=== PATIENT | female | born 1985 | race Caucasian/White ===

== ENCOUNTER 2017-09-22 14:10 | Emergency (ER) | payer OTHER ==
[~2017-09-22] VITALS: Ht 149.9 cm; Wt 69.6 kg
[~2017-09-22 14:10] MED LIST: BUPR8MIS SL; GABA-113 PO; SERT25TA PO
[2017-09-22 14:13] VITALS: TEMP 37.7; Ht 149.9 cm; Wt 69.6 kg
[2017-09-22] MEDS ORDERED: SODIUM CHLORIDE 0.9% 1000ML 2,000 ML IV STA (14:36)
[2017-09-22] MEDS ORDERED: SODIUM CHLORIDE 0.9% 1000ML 1,000 ML IV STA (14:36)
--- NOTE | 2017-09-22 14:48 | EMERGENCY ROOM VISIT NOTE ---
History Report prepared by Darin: Giovanni Remy Under the Supervision of: Dr. Brant Gillette M.D. First contact with patient: 14:26 Chief Complaint: OTHER COMPLAINT Stated Complaint: INVOLUNTARY MUSCLE SPASM History of Present Illness The patient is a 32 year old female who presents to the Emergency Room following a now-resolved involuntary spasm episode that occurred 90 minutes prior to arrival. The patient describes her spasm as her head being pulled back , and someone pulling on her upper extremities. This caused her upper extremities to move uncontrollably. Her mother at bedside estimates that her episode lasted roughly 30 minutes. She did lose continence of her bladder. The patient did have a similar episode 1 month ago, but this spasm was in her legs. She followed with a Neurologist at [facility] following this episode and did have an EEG performed. Everything from this visit resulted normal. The patient also notes feeling a "hot" sensation in her head during these episodes. She has had a headache today. She does have a history of anxiety and panic attacks. The patient continued to add that she has vomiting, fevers, chills, and cough every day. She gets notes that she gets a migraine every day. Source of History: patient Onset: 90 minutes [employer] Position: arm (bilateral) Quality: other (involuntary spasms) Timing: resolved Associated Symptoms: + headache ("hot" sensation) Review of Systems See HPI for pertinent positives and negatives. A total of ten systems were reviewed and were otherwise negative. Past Medical & Surgical Hx of Anxiety and Panic Attacks Family History Cancer Social History Smoking Status: Current Every Day Smoker Alcohol Use: occasionally Drug Use: none Marital Status: single Housing Status: lives with family Occupation Status: unemployed Current/Historical Medications Scheduled Buprenorphine Hcl-Naloxone Hcl (Suboxone 8-2 Mg), 8 MG SL BID Gabapentin (Neurontin), 600 MG PO BID Sertraline (Zoloft), 25 MG PO DAILY Allergies Coded Allergies: Codeine (Verified Allergy, Severe, hives, 10/08/13) as per patient Physical Exam Vital Signs Date Time Temp Pulse Resp B/P (MAP) Pulse Ox O2 Delivery O2 Flow Rate FiO2 09/22/17 16:00 84 23 103/66 99 Room Air 09/22/17 14:29 95 09/22/17 14:13 37.7 101 16 126/81 98 Room Air Physical Exam GENERAL: Awake, alert, fatigued-appearing, anxious appearing, in no distress HENT: Normocephalic, atraumatic. Dry mucous membranes. EYES: Normal conjunctiva. Sclera non-icteric. NECK: Supple. No nuchal rigidity. FROM. No JVD. RESPIRATORY: Clear to auscultation. CARDIAC: Regular rate, normal rhythm. Extremities warm and well perfused. Pulses equal. ABDOMEN: Soft, non-distended. No tenderness to palpation. No rebound or guarding. No masses. RECTAL: Deferred. MUSCULOSKELETAL: Chest examination reveals no tenderness. The back is symmetrical on inspection without obvious abnormality. There is no CVA tenderness to palpation. No joint edema. LOWER EXTREMITIES: Calves are equal size bilaterally and non-tender. No edema. No discoloration. NEURO: Normal sensorium. No sensory or motor deficits noted. normal cerebellar function with [id number], alternating palms, [id number] SKIN: No rash or jaundice noted. Medical Decision & Procedures ER Provider Diagnostic Interpretation: Radiology results as stated below per my review and radiologist interpretation: CHEST ONE VIEW PORTABLE HISTORY: 32 years-old Female ABDOMINAL PAIN/GI acute generalized abdominal pain COMPARISON: Acute abdominal series radiographs 10/25/2014 TECHNIQUE: Portable AP view of the chest FINDINGS: Cardiac mediastinal and hilar silhouettes are within normal limits. There is no pneumothorax, pleural effusion, focal airspace consolidation or overt pulmonary edema. The bones of the chest appear grossly intact. Cholecystectomy clips noted. IMPRESSION: No acute process. The above report was generated using voice recognition software. It may contain grammatical, syntax or spelling errors. Electronically signed by: Hari Landaverde M.D. 09/22/2017 3:01 PM Dictated Date/Time: 09/22/2017 3:00 PM Laboratory Results 09/22/17 14:25 Red Blood Count 4.60, Mean Corpuscular Volume 88.3, Mean Corpuscular Hemoglobin 30.2, Mean Corpuscular Hemoglobin Concent 34.2, Mean Platelet Volume 10.7, Neutrophils (%) (Auto) 77.6, Lymphocytes (%) (Auto) 16.5, Monocytes (%) (Auto) 5.6, Eosinophils (%) (Auto) 0.1, Basophils (%) (Auto) 0.1, Neutrophils # (Auto) 6.66, Lymphocytes # (Auto) 1.42, Monocytes # (Auto) 0.48, Eosinophils # (Auto) 0.01, Basophils # (Auto) 0.01 09/22/17 14:25 Test 09/22/17 14:15 09/22/17 14:25 Urine Color YELLOW Urine Appearance CLEAR (CLEAR) Urine pH 6.0 (4.5-7.5) Urine Specific [place] 1.020 (1.000-1.030) Urine Protein NEG (NEG) Urine Glucose (UA) NEG (NEG) Urine Ketones NEG (NEG) Urine Occult Blood NEG (NEG) Urine Nitrite NEG (NEG) Urine Bilirubin NEG (NEG) Urine Urobilinogen NEG (NEG) Urine Leukocyte Esterase NEG (NEG) White Blood Count 8.59 K/uL (4.8-10.8) Red Blood Count 4.60 M/uL (4.2-5.4) Hemoglobin 13.9 g/dL (12.0-16.0) Hematocrit 40.6 % (37-47) Mean Corpuscular Volume 88.3 fL (80-100) Mean Corpuscular Hemoglobin 30.2 pg (25-34) Mean Corpuscular Hemoglobin Concent 34.2 g/dl (32-36) Platelet Count 230 K/uL (130-400) Mean Platelet Volume 10.7 fL (7.4-10.4) Neutrophils (%) (Auto) 77.6 % Lymphocytes (%) (Auto) 16.5 % Monocytes (%) (Auto) 5.6 % Eosinophils (%) (Auto) 0.1 % Basophils (%) (Auto) 0.1 % Neutrophils # (Auto) 6.66 K/uL (1.4-6.5) Lymphocytes # (Auto) 1.42 K/uL (1.2-3.4) Monocytes # (Auto) 0.48 K/uL (0.11-0.59) Eosinophils # (Auto) 0.01 K/uL (0-0.5) Basophils # (Auto) 0.01 K/uL (0-0.2) RDW Standard Deviation 40.5 fL (36.4-46.3) RDW Coefficient of Variation 12.7 % (11.5-14.5) Immature Granulocyte % (Auto) 0.1 % Immature Granulocyte # (Auto) 0.01 K/uL (0.00-0.02) Anion Gap 9.0 mmol/L (3-11) Est Creatinine Clear Calc Drug Dose 91.9 ml/min Estimated GFR () 122.0 Estimated GFR (Non- 105.3 BUN/Creatinine Ratio 9.9 (10-20) Calcium Level 9.4 mg/dl (8.5-10.1) Total Bilirubin 0.3 mg/dl (0.2-1) Direct Bilirubin < 0.1 mg/dl (0-0.2) Aspartate Amino Transf (AST/SGOT) 10 U/L (15-37) Alanine Aminotransferase (ALT/SGPT) 21 U/L (12-78) Alkaline Phosphatase 68 U/L (45-117) Total Creatine Kinase 59 U/L (26-192) Total Protein 8.4 gm/dl (6.4-8.2) Albumin 4.1 gm/dl (3.4-5.0) Lipase 71 U/L (73-393) Laboratory results reviewed by me Medications Administered Medications (Trade) Dose Ordered Sig/Usha Route Start Time Stop Time Status Last Admin Dose Admin Sodium Chloride 1,000 ml @ 999 mls/hr Q1H1M STAT IV 09/22/17 14:36 09/22/17 15:36 DC 09/22/17 15:02 999 MLS/HR Sodium Chloride 2,000 ml @ 999 mls/hr Q2H1M STAT IV 09/22/17 14:36 09/22/17 16:36 DC 09/22/17 15:02 999 MLS/HR ECG Per My Interpretation Indication: weakness Rate (beats per minute): 78 Rhythm: normal sinus Findings: other (No ROEL/STD, Normal [place]. ) ED Course 1429: The patient was evaluated in room C3. A complete history and physical exam was performed. 1436: Ordered Sodium Chloride 2000 mL @ 999 mL/hr IV, Sodium Chloride 1000 mL @ 999 mL/hr IV. 1542: Ordered Benadryl 25 mg IV, Reglan 10 mg IV. 1544: I reevaluated the patient. Discussed results and discharge instructions: she verbalized understanding and agreement. The patient is ready for discharge. Medical Decision I reviewed the patient's past medical history, medications, and the nursing notes as described above. Differential diagnosis: Etiologies such as metabolic, infection, hypo/hyperglycemia, electrolyte abnormalities, cardiac sources, intracerebral event, toxicologic, neurologic, as well as others were entertained. The patient is a 32-year-old woman with a past medical history of anxiety and prior substance abuse who presents emergency department with episode of arm spasms that occurred prior to arrival similar to prior episode 1 month ago per hpi. Of note, during that episode the patient had followed up with neurology and had a negative MRI with and without contrast as well as spot EEG that was unremarkable. It was the impression of neurology that symptoms were likely related to dehydration and recent medication changes. On arrival the patient is fatigued appearing but in no acute distress, afebrile stable vital signs. She is neurologically intact. Documentation from patient's prior nerve neuro evaluation were obtained and demonstrates her negative MRI. The patient's mother at the bedside is concerned that she may have MS and so I explained that given her reassuring MRI this is unlikely. Labs unremarkable including WBC within normal limits. Chest x-ray negative. She feeling improved after IV fluid hydration with resolution of her headache. Findings and plan for follow- up reviewed with patient. Patient agreeable and d/c'd per discharge instructions. Medication Reconcilliation Current Medication List: was personally reviewed by me Blood Pressure Screening Patient's blood pressure: Normal blood pressure Impression Primary Impression: Muscle spasm Additional Impression: Dehydration Scribe Attestation The scribe's documentation has been prepared under my direction and personally reviewed by me in its entirety. I confirm that the note above accurately reflects all work, treatment, procedures, and medical decision making performed by me. Departure Information Dispostion Home / Self-Care Referrals Sloane Alcazar M.D. (PCP) Leslie Bernard M.D. Patient Instructions Anxiety Body Response, ED Spasm Muscle, My [facility] Additional Instructions Please follow up with your primary care physician and neurologist, Dr. Bernard , this week for re-evaluation. The cause of your symptoms is unclear at this time however may be related to mild dehydration and your underlying anxiety. Otherwise, your exam, EKG, chest xray, and lab results did not show signs of an emergent condition at this time. Drink plenty of fluids to ensure hydration. Return to the emergency department for worsening symptoms as described in the accompanying instructions. Problem Qualifiers
[2017-09-22 14:54] LABS: BASO % 0.1 %; BASO ABS # 0.01 K/uL (0-0.2); EOS % 0.1 %; EOS ABS # 0.01 K/uL (0-0.5); HEMATOCRIT 40.6 % (37-47); HEMOGLOBIN 13.9 g/dL (12.0-16.0); IG# 0.01 K/uL (0.00-0.02); LYMPH % 16.5 %; LYMPH ABS # 1.42 K/uL (1.2-3.4); MEAN CELL VOLUME 88.3 fL (80-100); MEAN CORPUSCULAR HEMOGLOBIN 30.2 pg (25-34); MEAN CORPUSCULAR HGB CONC 34.2 g/dl (32-36); MEAN PLATELET VOLUME 10.7 fL (7.4-10.4); MONO % 5.6 %; MONO ABS # 0.48 K/uL (0.11-0.59); NEUT % 77.6 %; NEUT ABS # 6.66 K/uL (1.4-6.5); PLATELET COUNT 230 K/uL (130-400); RED CELL DISTRIBUTION WIDTH CV 12.7 % (11.5-14.5); RED CELL DISTRIBUTION WIDTH SD 40.5 fL (36.4-46.3); WHITE BLOOD COUNT 8.59 K/uL (4.8-10.8)
--- NOTE | 2017-09-22 15:02 | DIAGNOSTIC IMAGING REPORT ---
CHEST ONE VIEW PORTABLE HISTORY: 32 years-old Female ABDOMINAL PAIN/GI acute generalized abdominal pain COMPARISON: Acute abdominal series radiographs 10/25/2014 TECHNIQUE: Portable AP view of the chest FINDINGS: Cardiac mediastinal and hilar silhouettes are within normal limits. There is no pneumothorax, pleural effusion, focal airspace consolidation or overt pulmonary edema. The bones of the chest appear grossly intact. Cholecystectomy clips noted. IMPRESSION: No acute process. The above report was generated using voice recognition software. It may contain grammatical, syntax or spelling errors. Electronically signed by: Hari Landaverde M.D. 09/22/2017 3:01 PM Dictated Date/Time: 09/22/2017 3:00 PM
[2017-09-22 15:15] LABS: ALBUMIN 4.1 gm/dl (3.4-5.0); ALT/SGPT 21 U/L (12-78); AST/SGOT 10 U/L (15-37); BLOOD UREA NITROGEN 8 mg/dl (7-18); CALCIUM 9.4 mg/dl (8.5-10.1); CARBON DIOXIDE 25 mmol/L (21-32); CREATININE 0.76 mg/dl (0.60-1.20); GLUCOSE 84 mg/dl (70-99); LIPASE 71 U/L (73-393); POTASSIUM 3.6 mmol/L (3.5-5.1); SODIUM 137 mmol/L (136-145)
[2017-09-22 15:18] LABS: ALKALINE PHOSPHATASE 68 U/L (45-117); TOTAL PROTEIN 8.4 gm/dl (6.4-8.2)
[2017-09-22] MEDS ORDERED: DiphenhydrAMINE HCL 50 MG/ML VIAL IV STA (15:42)
[2017-09-22] MEDS ORDERED: METOCLOPRAMIDE HCL INJ 5 MG/ML 2 ML VIAL IV STA (15:42)
[2017-09-22 16:00] VITALS: BP 103/66; PULSE 84; O2SAT 99
== END 2017-09-22 16:23 | disposition home or self-care (01) ==
LOC: C.EDB 14:11 → C.EDC 16:23
DX: M62.838 Other muscle spasm (principal); E86.0 Dehydration; R51 Headache; F41.0 Panic disorder [episodic paroxysmal anxiety]; F19.21 Other psychoactive substance dependence, in remission; F17.200 Nicotine dependence, unspecified, uncomplicated; Z80.9 Family history of malignant neoplasm, unspecified; Z88.6 Allergy status to analgesic agent

== ENCOUNTER 2022-08-04 00:22 | Inpatient (IN) ==
[2022-08-04] MEDS ORDERED: ACETAMINOPHEN 1,000 MG/100 ML VIAL IV STA (01:11)
[2022-08-04] MEDS ORDERED: VANCOMYCIN HCL 2,000 MG in SODIUM CHLORIDE 0.9% 500 ML IV ONE (01:13)
[2022-08-04] MEDS ORDERED: PIPERACILLIN/TAZOBACTAM 4.5 GM/120 ML BAG IV ONE (01:13)
[2022-08-04] MEDS ORDERED: VANCOMYCIN CONSULT ACTIVE PRN (01:13)
[2022-08-04] MEDS ORDERED: SODIUM CHLORIDE 0.9% 1000ML 1,000 ML IV SCH (01:15)
[2022-08-04 01:53] LABS: Basophils # (auto) 0.01 K/uL (0-0.2); Basophils % (auto) 0.1 %; Hematocrit (blood only) 34.6 % (37.0-47.0); Immature Granulocytes # (auto) 0.06 K/uL (0.01-0.20); Immature Granulocytes % (auto) 0.4 %; Lymphocytes # (auto) 0.99 K/uL (1.2-3.4); Lymphocytes % (auto) 6.7 %; Mean Corpuscular Hemoglobin 30.5 pg (25.0-34.0); Mean Corpuscular Hgb Conc 34.7 g/dL (32.0-36.0); Mean Platelet Volume 10.6 fL (9.4-12.4); Monocytes # (auto) 1.16 K/uL (0.11-0.59); Monocytes % (auto) 7.9 %; Neutrophils # (auto) 12.52 K/uL (1.40-6.50); Neutrophils % (auto) 84.9 %; Platelet Count 169 K/uL (130-400); RDW Coefficient of Variation 12.2 % (11.5-14.5); RDW Standard Deviation 39.3 fL (36.4-46.3); Red Blood Count 3.93 M/uL (4.20-5.40); White Blood Count 14.74 K/ul (4.8-10.8)
--- NOTE | 2022-08-04 01:55 | Emergency Department Note ---
History of Present Illness General Chief complaint: Back Injury/Pain Stated complaint: CHEST PAIN, BACK PAIN Time Seen by Provider: 08/04/22 01:02 History of Present Illness Maximum Pain Intensity: 10 This 37-year-old female that came to the ER earlier and left AMA presents with the mother for severe chest and abdominal pain and back pain. 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 Patient complains of fever, chills, chest pain, abdominal pain and back pain for the past few days. Patient is writhing in pa in. History is also obtained from the mother. Patient was trying to give herself some enemas also today. Home Medications Medication Instructions Recorded Confirmed Type buprenorphine 8 mg-naloxone 2 mg 1 tab sublingual BID 08/04/22 08/04/22 History sublingual tablet Allergies Allergy/AdvReac Type Severity Reaction Status Date / Time No Known Allergies Allergy Unverified 08/04/22 01:17 Past Med/Surg History Social History Smoking Status: Current every day smoker Tobacco Type: Cigarettes Hx Alcohol Use: No Preferred Language: French Metallurgical Specialist Required: No Beliefs That Will Affect Care: None Current Living Situation: Alone Feels Safe at Home: Yes Safety Concerns: Feels Safe At This Time Assistive Devices: None Review of Systems A total of 10 systems reviewed and were otherwise negative Physical Exam Vital Signs Vital Signs - 24 hr 08/04/22 02:15 08/04/22 02:28 08/04/22 03:03 Temperature 37.6 C H Temperature Source Oral Pulse Rate 98 H 91 H Pulse Rate from SpO2 Sensor 97 H Respiratory Rate 28 H 24 Blood Pressure 118/71 106/64 Blood Pressure Mean 86 78 Pulse Oximetry 98 100 Oxygen Delivery Method Room Air 08/04/22 04:01 Temperature Temperature Source Pulse Rate 97 H Pulse Rate from SpO2 Sensor Respiratory Rate 24 Blood Pressure 119/67 Blood Pressure Mean 84 Pulse Oximetry 100 Oxygen Delivery Method VITALS: Vitals are noted on the nurse's note and reviewed by myself. Vital signs tachycardic. GENERAL: White female who appears in pain, in no acute distress, nondiaphoretic, well-developed well-nourished. SKIN: Multiple track bacon present in different stages of the arms, the rest of the skin was without rashes, erythema, edema, or bruising. There is no tenting of the skin. Capillary reflex less than 2 seconds. HEAD: Normocephalic atraumatic. EARS: External auditory canals clear, EYES: Pupils equal round and reactive to light and accommodation. Conjunctivae without injection, sclerae without icterus. Extraocular movements intact. NOSE: Patent, turbinates without inflammation or discharge. MOUTH: Mucous membranes moist. Pharynx without erythema or exudate. Uvula midline. Airway patent. Tongue does not deviate. NECK: Supple without nuchal rigidity. No lymphadenopathy. No thyromegaly. Cervical spine is nontender. No JVD. HEART: Mildly tachycardic rate and rhythm LUNGS: Clear to auscultation bilaterally without wheezes, rales or rhonchi. No retractions or accessory muscle use. ABDOMEN: Positive bowel sounds x 4. Normal tympanic percussion. Soft, diffusely tender to palpation, without masses or organomegaly. Marroquin sign negative. No guarding or rebound tenderness. No CVA tenderness MUSCULOSKELETAL: No muscle atrophy, erythema, or edema noted. NEURO: Patient was alert and oriented to person place and time. Normal sensation to light and sharp touch. No focal neurological deficits. Course Administered Medications Acetaminophen (Acetaminophen 325 Mg Tab) 650 mg PO Q4H PRN PRN Reason: Pain or Fever Stop: 09/03/22 06:09 Last Admin: 08/04/22 21:12 Dose: 650 mg Documented By: Admin: 08/04/22 16:43 Dose: 650 mg Documented By: Admin: 08/04/22 11:10 Dose: 650 mg Documented By: Admin: 08/04/22 06:38 Dose: 650 mg Documented By: BENTON Buprenorphine/Naloxone (Buprenorphine/Naloxone 8/2 Mg Tab) 1 tab SL BID RICKIE Stop: 09/03/22 08:59 Last Admin: 08/04/22 20:01 Dose: 1 tab Documented By: Admin: 08/04/22 09:27 Dose: 1 tab Documented By: MACEY Hydroxyzine HCl (Hydroxyzine Hcl 10 Mg Tab) 10 mg PO QID PRN PRN Reason: Anxiety Stop: 09/03/22 04:52 Last Admin: 08/04/22 20:20 Dose: 10 mg Documented By: FINA Cefepime HCl 2,000 mg/ Syringe 20 mls @ 5 mls/min IV Q8H RICKIE; Protocol Stop: 09/15/22 07:59 Last Admin: 08/04/22 23:39 Dose: 5 mls/min Documented By: Admin: 08/04/22 16:18 Dose: 5 mls/min Documented By: Admin: 08/04/22 08:29 Dose: 5 mls/min Documented By: MACEY Vancomycin HCl 1,250 mg/ (Sodium Chloride) 275 mls @ 200 mls/hr IV Q12H RICKIE; Protocol Stop: 09/15/22 11:59 Last Admin: 08/04/22 23:42 Dose: 200 mls/hr Documented By: Infusion: 08/04/22 12:21 Dose: 0 mls/hr Documented By: Admin: 08/04/22 11:08 Dose: 200 mls/hr Documented By: MACEY Lactated Ringer's (Lr) 1,000 mls @ 100 mls/hr IV .Q10H ONE Stop: 08/05/22 08:30 Last Admin: 08/04/22 22:40 Dose: 100 mls/hr Documented By: VIVEK Ketorolac Tromethamine (Ketorolac Tromethamine 15 Mg/Ml Vial) 15 mg IV Q6H PRN PRN Reason: Pain Stop: 08/09/22 04:52 Last Admin: 08/04/22 16:18 Dose: 15 mg Documented By: Admin: 08/04/22 09:27 Dose: 15 mg Documented By: MACEY Lidocaine (Lidocaine 5% 1 Patch) 1 patch TD QAM [facility] Stop: 09/03/22 09:29 Last Admin: 08/04/22 11:08 Dose: 1 patch Documented By: MACEY Miscellaneous (Remove Lidoderm Patch) 1 each N/A DAILY@2100 RICKIE Stop: 09/03/22 20:59 Last Admin: 08/04/22 19:59 Dose: 1 each Documented By: CF Discontinued Medications Sodium Chloride (Nss 1000ml) 1,000 mls @ 999 mls/hr IV .Q1H1M RICKIE Stop: 08/04/22 02:15 Last Infusion: 08/04/22 03:08 Dose: 0 mls/hr Documented By: Admin: 08/04/22 01:48 Dose: 999 mls/hr Documented By: CHAZ Acetaminophen (Ofirmev) 1,000 mg in 100 mls @ 400 mls/hr IV NOW STA Stop: 08/04/22 01:25 Last Infusion: 08/04/22 02:12 Dose: 0 mls/hr Documented By: Admin: 08/04/22 01:46 Dose: 400 mls/hr Documented By: CHAZ Piperacillin Sod/Tazobactam Sod (Zosyn) 4.5 gm in 120 mls @ 240 mls/hr IV NOW ONE Stop: 08/04/22 01:42 Last Infusion: 08/04/22 02:52 Dose: 0 mls/hr Documented By: Admin: 08/04/22 02:10 Dose: 240 mls/hr Documented By: CHAZ Vancomycin HCl 2,000 mg/ (Sodium Chloride) 540 mls @ 200 mls/hr IV NOW ONE Stop: 08/04/22 03:42 Last Admin: 08/04/22 02:58 Dose: 200 mls/hr Documented By: CHAZ Sodium Chloride (Nss 1000ml) 1,000 mls @ 999 mls/hr IV .Q1H1M ONE Stop: 08/04/22 03:19 Last Infusion: 08/04/22 04:09 Dose: 0 mls/hr Documented By: Admin: 08/04/22 03:08 Dose: 999 mls/hr Documented By: ISRAEL Magnesium Sulfate/Dextrose (Magnesium Sulfate / D5w) 1 gm in 100 mls @ 100 mls/hr IV Q1H RICKIE Stop: 08/04/22 04:43 Last Infusion: 08/04/22 07:49 Dose: 0 mls/hr Documented By: Admin: 08/04/22 04:01 Dose: 100 mls/hr Documented By: Infusion: 08/04/22 04:01 Dose: 0 mls/hr Documented By: Admin: 08/04/22 03:06 Dose: 100 mls/hr Documented By: ISRAEL Lactated Ringer's (Lr) 1,000 mls @ 75 mls/hr IV .[id number] ONE Stop: 08/04/22 16:32 Last Infusion: 08/04/22 09:44 Dose: 0 mls/hr Documented By: Admin: 08/04/22 06:50 Dose: 75 mls/hr Documented By: BENTON Sodium Chloride (Nss 1000ml) 1,000 mls @ 125 mls/hr IV .Q8H RICKIE Stop: 09/03/22 09:29 Last Infusion: 08/04/22 22:27 Dose: 0 mls/hr Documented By: Infusion: 08/04/22 22:18 Dose: 0 mls/hr Documented By: Admin: 08/04/22 20:03 Dose: 125 mls/hr Documented By: Infusion: 08/04/22 19:08 Dose: 125 mls/hr Documented By: Admin: 08/04/22 16:44 Dose: Not Given Documented By: Admin: 08/04/22 11:08 Dose: 125 mls/hr Documented By: ES Lactated Ringer's (Lr) 1,000 mls @ 100 mls/hr IV .Q10H ONE Stop: 08/05/22 08:15 Last Admin: 08/04/22 22:40 Dose: Not Given Documented By: VIVEK Ioversol (Optiray 320 500ml) 110 ml IV ONCE ONE Stop: 08/04/22 02:46 Last Admin: 08/04/22 02:38 Dose: 110 ml Documented By: BRTyshawn Ketorolac Tromethamine (Ketorolac Tromethamine 15 Mg/Ml Vial) 15 mg IV NOW ONE Stop: 08/04/22 22:17 Last Admin: 08/04/22 22:34 Dose: 15 mg Documented By: MALACHIK Lactulose (Lactulose Syrup 30 Gm/45 Ml Udp) 30 gm PO NOW STA Stop: 08/04/22 05:10 Last Admin: 08/04/22 05:45 Dose: 30 gm Documented By: KML Lorazepam (Lorazepam 2 Mg/1 Ml Vial) 1 mg IV NOW STA Stop: 08/04/22 04:31 Last Admin: 08/04/22 04:40 Dose: 1 mg Documented By: BS Miscellaneous (Remove Nicoderm Patch) 1 each N/A DAILY@0859 RICKIE Stop: 08/04/22 09:00 Last Admin: 08/04/22 08:28 Dose: Not Given Documented By: ES Nicotine (Nicotine 21 Mg/24 Hr Tdsy) 21 mg TD NOW STA Stop: 08/04/22 04:07 Last Admin: 08/04/22 05:08 Dose: Not Given Documented By: ISRAEL Nicotine (Nicotine 14 Mg/24 Hr Patch) 14 mg TD NOW STA Stop: 08/04/22 05:06 Last Admin: 08/04/22 05:44 Dose: 14 mg Documented By: ISRAEL Polyethylene Glycol (Polyethylene (Miralax) 17 Gm Pack) 17 gm PO NOW STA Stop: 08/04/22 04:54 Last Admin: 08/04/22 05:46 Dose: 17 gm Documented By: ISRAEL Senna/Docusate Sodium (Docusate Sodium/Senna 50/8.6mg Tab) 1 tab PO NOW STA Stop: 08/04/22 05:09 Last Admin: 08/04/22 05:45 Dose: 1 tab Documented By: ISRAEL Medical Decision Making Medical Records Attestation: I reviewed the patient's medical records. Home Medications Current Medication List: was personally reviewed by me Laboratory Data Attestation: I reviewed the patient's lab results. 08/04/22 01:16 08/04/22 01:19 Lab Results 08/04/22 08/04/22 08/04/22 Range/Units 01:16 01:16 01:19 WBC 14.74 H (4.8-10.8) K/ul RBC 3.93 L (4.20-5.40) M/uL Hgb 12.0 (12.0-16.0) g/dl Hct 34.6 L (37.0-47.0) % MCV 88.0 (80.0-100.0) fL MCH 30.5 (25.0-34.0) pg MCHC 34.7 (32.0-36.0) g/dL RDW Std Deviation 39.3 (36.4-46.3) fL RDW Coeff of Sanju 12.2 (11.5-14.5) % Plt Count 169 (130-400) K/uL MPV 10.6 (9.4-12.4) fL Immature Gran % (Auto) 0.4 % Neut % (Auto) 84.9 % Lymph % (Auto) 6.7 % [place] % (Auto) 7.9 % Eos % (Auto) 0.0 % Baso % (Auto) 0.1 % Neut # (Auto) 12.52 H (1.40-6.50) K/uL Lymph # (Auto) 0.99 L (1.2-3.4) K/uL [place] # (Auto) 1.16 H (0.11-0.59) K/uL Eos # (Auto) 0.00 (0-0.50) K/uL Baso # (Auto) 0.01 (0-0.2) K/uL Immature Gran # (Auto) 0.06 (0.01-0.20) K/uL ESR 44 H (0-20) mm/hr Sodium (136-145) mmol/L Potassium (3.5-5.1) mmol/L Chloride (98-107) mmol/L Carbon Dioxide (21-32) mmol/L Anion Gap (3-11) BUN (6-23) mg/dl Creatinine (0.6-1.2) mg/dl Est Cr Clr Drug Dosing Est GFR ( Amer) ml/min Est GFR (Non-Af Amer) ml/min BUN/Creatinine Ratio (10-20) Glucose (70-99(Fasting)) mg/dl Osmolality (280-300) mOsm/kg Lactate (0.4-2.0) mmol/L Calcium (8.5-10.1) mg/dl Magnesium (1.7-2.4) mg/dl Total Bilirubin (0.2-1.0) mg/dl Direct Bilirubin (0-0.2) mg/dl AST (13-39) U/L ALT (7-52) U/L Alkaline Phosphatase (34-104) U/L Troponin I High Sens (0-14) pg/ml C-Reactive Protein (0-0.5) mg/dl Total Protein (6.0-8.3) gm/dl Albumin (3.4-5.0) gm/dl Procalcitonin (0-0.5) ng/ml TSH (0.300-4.500) uIu/ml Free T4 (0.61-1.60) ng/dl HCG, Qual Negative (Negative) Urine Color Urine Appearance (Clear) Urine pH (4.5-7.5) Ur Specific Bond (1.000-1.030) Urine Protein (Negative) Urine Glucose (UA) (Negative) Urine Ketones (Negative) Urine Blood (Negative) Urine Nitrite (Negative) Urine Bilirubin (Negative) Urine Urobilinogen (Negative) Ur Leukocyte Esterase (Negative) Urine WBC (Auto) (0-5) /hpf Urine RBC (Auto) (0-4) /hpf U Hyaline Cast (Auto) (0-5) /lpf U Epithel Cells (Auto) (0-5) /lpf Urine Bacteria (Auto) (Negative) Urine Opiates Screen (Neg) Ur Methadone, Qual (Neg) Urine Barbiturates (Neg) Ur Phencyclidine (PCP) (Neg) U Amphetamin/Meth Scrn (Neg) MDMA (Ecstasy) Screen (Neg) U Benzodiazepines Scrn (Neg) Ur Cocaine Metabolite (Neg) U Marijuana (THC) Screen (Neg) SARS-CoV-2 (PCR) (Negative) Influenza Type A (PCR) (Neg) Influenza Type B (PCR) (Neg) RSV (RT-PCR) (Neg) Staphylococcus sp PCR (NotDetected) Staph aureus (PCR) (NotDetected) mecA/C & MREJ Resist Gene (NotDetected) Bld Cult ID Panel PCR (NotDetected) 08/04/22 08/04/22 08/04/22 Range/Units 01:19 01:19 01:19 WBC (4.8-10.8) K/ul RBC (4.20-5.40) M/uL Hgb (12.0-16.0) g/dl Hct (37.0-47.0) % MCV (80.0-100.0) fL MCH (25.0-34.0) pg MCHC (32.0-36.0) g/dL RDW Std Deviation (36.4-46.3) fL RDW Coeff of Sanju (11.5-14.5) % Plt Count (130-400) K/uL MPV (9.4-12.4) fL Immature Gran % (Auto) % Neut % (Auto) % Lymph % (Auto) % [place] % (Auto) % Eos % (Auto) % Baso % (Auto) % Neut # (Auto) (1.40-6.50) K/uL Lymph # (Auto) (1.2-3.4) K/uL [place] # (Auto) (0.11-0.59) K/uL Eos # (Auto) (0-0.50) K/uL Baso # (Auto) (0-0.2) K/uL Immature Gran # (Auto) (0.01-0.20) K/uL ESR (0-20) mm/hr Sodium 131 L (136-145) mmol/L Potassium 3.7 (3.5-5.1) mmol/L Chloride 101 (98-107) mmol/L Carbon Dioxide 21 (21-32) mmol/L Anion Gap 9 (3-11) BUN 6 (6-23) mg/dl Creatinine 0.62 (0.6-1.2) mg/dl Est Cr Clr Drug Dosing Not Reportable Est GFR ( Amer) 135.4 ml/min Est GFR (Non-Af Amer) 116.8 ml/min BUN/Creatinine Ratio 9.7 L (10-20) Glucose 102 H (70-99(Fasting)) mg/dl Osmolality (280-300) mOsm/kg Lactate 0.7 (0.4-2.0) mmol/L Calcium 9.2 (8.5-10.1) mg/dl Magnesium 1.5 L (1.7-2.4) mg/dl Total Bilirubin 0.7 (0.2-1.0) mg/dl Direct Bilirubin 0.1 (0-0.2) mg/dl AST 11 L (13-39) U/L ALT 13 (7-52) U/L Alkaline Phosphatase 55 (34-104) U/L Troponin I High Sens 6.2 (0-14) pg/ml C-Reactive Protein 21.89 H (0-0.5) mg/dl Total Protein 7.0 (6.0-8.3) gm/dl Albumin 3.8 (3.4-5.0) gm/dl Procalcitonin 0.92 H (0-0.5) ng/ml TSH (0.300-4.500) uIu/ml Free T4 (0.61-1.60) ng/dl HCG, Qual (Negative) Urine Color Urine Appearance (Clear) Urine pH (4.5-7.5) Ur Specific Bond (1.000-1.030) Urine Protein (Negative) Urine Glucose (UA) (Negative) Urine Ketones (Negative) Urine Blood (Negative) Urine Nitrite (Negative) Urine Bilirubin (Negative) Urine Urobilinogen (Negative) Ur Leukocyte Esterase (Negative) Urine WBC (Auto) (0-5) /hpf Urine RBC (Auto) (0-4) /hpf U Hyaline Cast (Auto) (0-5) /lpf U Epithel Cells (Auto) (0-5) /lpf Urine Bacteria (Auto) (Negative) Urine Opiates Screen (Neg) Ur Methadone, Qual (Neg) Urine Barbiturates (Neg) Ur Phencyclidine (PCP) (Neg) U Amphetamin/Meth Scrn (Neg) MDMA (Ecstasy) Screen (Neg) U Benzodiazepines Scrn (Neg) Ur Cocaine Metabolite (Neg) U Marijuana (THC) Screen (Neg) SARS-CoV-2 (PCR) (Negative) Influenza Type A (PCR) (Neg) Influenza Type B (PCR) (Neg) RSV (RT-PCR) (Neg) Staphylococcus sp PCR (NotDetected) Staph aureus (PCR) (NotDetected) mecA/C & MREJ Resist Gene (NotDetected) Bld Cult ID Panel PCR (NotDetected) 08/04/22 08/04/22 08/04/22 Range/Units 01:19 01:19 01:49 WBC (4.8-10.8) K/ul RBC (4.20-5.40) M/uL Hgb (12.0-16.0) g/dl Hct (37.0-47.0) % MCV (80.0-100.0) fL MCH (25.0-34.0) pg MCHC (32.0-36.0) g/dL RDW Std Deviation (36.4-46.3) fL RDW Coeff of Sanju (11.5-14.5) % Plt Count (130-400) K/uL MPV (9.4-12.4) fL Immature Gran % (Auto) % Neut % (Auto) % Lymph % (Auto) % [place] % (Auto) % Eos % (Auto) % Baso % (Auto) % Neut # (Auto) (1.40-6.50) K/uL Lymph # (Auto) (1.2-3.4) K/uL [place] # (Auto) (0.11-0.59) K/uL Eos # (Auto) (0-0.50) K/uL Baso # (Auto) (0-0.2) K/uL Immature Gran # (Auto) (0.01-0.20) K/uL ESR (0-20) mm/hr Sodium (136-145) mmol/L Potassium (3.5-5.1) mmol/L Chloride (98-107) mmol/L Carbon Dioxide (21-32) mmol/L Anion Gap (3-11) BUN (6-23) mg/dl Creatinine (0.6-1.2) mg/dl Est Cr Clr Drug Dosing Est GFR ( Amer) ml/min Est GFR (Non-Af Amer) ml/min BUN/Creatinine Ratio (10-20) Glucose (70-99(Fasting)) mg/dl Osmolality 265 L (280-300) mOsm/kg Lactate (0.4-2.0) mmol/L Calcium (8.5-10.1) mg/dl Magnesium (1.7-2.4) mg/dl Total Bilirubin (0.2-1.0) mg/dl Direct Bilirubin (0-0.2) mg/dl AST (13-39) U/L ALT (7-52) U/L Alkaline Phosphatase (34-104) U/L Troponin I High Sens (0-14) pg/ml C-Reactive Protein (0-0.5) mg/dl Total Protein (6.0-8.3) gm/dl Albumin (3.4-5.0) gm/dl Procalcitonin (0-0.5) ng/ml TSH 0.262 L (0.300-4.500) uIu/ml Free T4 1.04 (0.61-1.60) ng/dl HCG, Qual (Negative) Urine Color Urine Appearance (Clear) Urine pH (4.5-7.5) Ur Specific Bond (1.000-1.030) Urine Protein (Negative) Urine Glucose (UA) (Negative) Urine Ketones (Negative) Urine Blood (Negative) Urine Nitrite (Negative) Urine Bilirubin (Negative) Urine Urobilinogen (Negative) Ur Leukocyte Esterase (Negative) Urine WBC (Auto) (0-5) /hpf Urine RBC (Auto) (0-4) /hpf U Hyaline Cast (Auto) (0-5) /lpf U Epithel Cells (Auto) (0-5) /lpf Urine Bacteria (Auto) (Negative) Urine Opiates Screen (Neg) Ur Methadone, Qual (Neg) Urine Barbiturates (Neg) Ur Phencyclidine (PCP) (Neg) U Amphetamin/Meth Scrn (Neg) MDMA (Ecstasy) Screen (Neg) U Benzodiazepines Scrn (Neg) Ur Cocaine Metabolite (Neg) U Marijuana (THC) Screen (Neg) SARS-CoV-2 (PCR) NEGATIVE (Negative) Influenza Type A (PCR) Negative (Neg) Influenza Type B (PCR) Negative (Neg) RSV (RT-PCR) Negative (Neg) Staphylococcus sp PCR (NotDetected) Staph aureus (PCR) (NotDetected) mecA/C & MREJ Resist Gene (NotDetected) Bld Cult ID Panel PCR (NotDetected) 08/04/22 08/04/22 08/04/22 Range/Units 02:05 03:00 03:00 WBC (4.8-10.8) K/ul RBC (4.20-5.40) M/uL Hgb (12.0-16.0) g/dl Hct (37.0-47.0) % MCV (80.0-100.0) fL MCH (25.0-34.0) pg MCHC (32.0-36.0) g/dL RDW Std Deviation (36.4-46.3) fL RDW Coeff of Sanju (11.5-14.5) % Plt Count (130-400) K/uL MPV (9.4-12.4) fL Immature Gran % (Auto) % Neut % (Auto) % Lymph % (Auto) % [place] % (Auto) % Eos % (Auto) % Baso % (Auto) % Neut # (Auto) (1.40-6.50) K/uL Lymph # (Auto) (1.2-3.4) K/uL [place] # (Auto) (0.11-0.59) K/uL Eos # (Auto) (0-0.50) K/uL Baso # (Auto) (0-0.2) K/uL Immature Gran # (Auto) (0.01-0.20) K/uL ESR (0-20) mm/hr Sodium (136-145) mmol/L Potassium (3.5-5.1) mmol/L Chloride (98-107) mmol/L Carbon Dioxide (21-32) mmol/L Anion Gap (3-11) BUN (6-23) mg/dl Creatinine (0.6-1.2) mg/dl Est Cr Clr Drug Dosing Est GFR ( Amer) ml/min Est GFR (Non-Af Amer) ml/min BUN/Creatinine Ratio (10-20) Glucose (70-99(Fasting)) mg/dl Osmolality (280-300) mOsm/kg Lactate (0.4-2.0) mmol/L Calcium (8.5-10.1) mg/dl Magnesium (1.7-2.4) mg/dl Total Bilirubin (0.2-1.0) mg/dl Direct Bilirubin (0-0.2) mg/dl AST (13-39) U/L ALT (7-52) U/L Alkaline Phosphatase (34-104) U/L Troponin I High Sens (0-14) pg/ml C-Reactive Protein (0-0.5) mg/dl Total Protein (6.0-8.3) gm/dl Albumin (3.4-5.0) gm/dl Procalcitonin (0-0.5) ng/ml TSH (0.300-4.500) uIu/ml Free T4 (0.61-1.60) ng/dl HCG, Qual (Negative) Urine Color Yellow Urine Appearance Cloudy A (Clear) Urine pH 7.0 (4.5-7.5) Ur Specific Bond 1.019 (1.000-1.030) Urine Protein 1+ H (Negative) Urine Glucose (UA) Negative (Negative) Urine Ketones 2+ H (Negative) Urine Blood 3+ H (Negative) Urine Nitrite Positive A (Negative) Urine Bilirubin Negative (Negative) Urine Urobilinogen Negative (Negative) Ur Leukocyte Esterase Trace H (Negative) Urine WBC (Auto) 5-10 H (0-5) /hpf Urine RBC (Auto) 10-30 H (0-4) /hpf U Hyaline Cast (Auto) 1-5 (0-5) /lpf U Epithel Cells (Auto) >30 H (0-5) /lpf Urine Bacteria (Auto) 2+ H (Negative) Urine Opiates Screen Neg (Neg) Ur Methadone, Qual Neg (Neg) Urine Barbiturates Neg (Neg) Ur Phencyclidine (PCP) Neg (Neg) U Amphetamin/Meth Scrn Pos H (Neg) MDMA (Ecstasy) Screen Neg (Neg) U Benzodiazepines Scrn Neg (Neg) Ur Cocaine Metabolite Neg (Neg) U Marijuana (THC) Screen Pos H (Neg) SARS-CoV-2 (PCR) (Negative) Influenza Type A (PCR) (Neg) Influenza Type B (PCR) (Neg) RSV (RT-PCR) (Neg) Staphylococcus sp PCR DETECTED A (NotDetected) Staph aureus (PCR) DETECTED A (NotDetected) mecA/C & MREJ Resist Gene MRSA Not Detected (NotDetected) Bld Cult ID Panel PCR See PCR Comment (NotDetected) Imaging Data Attestation: I personally reviewed and interpreted this imaging study as follows: Radiologist's Impression: Lumbar Spine MRI 08/04/22 02:55 MRI OF THE LUMBAR SPINE WITH AND WITHOUT CONTRAST CLINICAL HISTORY: severe pain, IVDU, fever, ? abscess COMPARISON STUDY: Lumbar spine radiographs October 08, 2013. TECHNIQUE: Utilizing a 1.5 Kasandra magnet and dedicated coil, multiplanar, multiecho imaging of the lumbar spine was performed before and after uneventful IV administration of 5.5 mL of Gadavist. FINDINGS: For purposes of numbering on this exam, the L5-S1 disc space is assigned to axial image 26 of 29. Alignment of the lumbar spine is anatomic. Vertebral body heights are maintained. There is no marrow edema or replacement. The conus terminates at the lower L1 level. Note is made of mild lower lumbar and presacral edema and enhancement. No associated fluid collection is present. In addition, there is abnormal epidural enhancement within the lower lumbar canal as well as the sacral canal. No associated rim-enhancing fluid collection is identified. There is no evidence for discitis. There is no evidence for ostomy myelitis. Irregularity of the superior endplate of S1 is likely degenerative. A 4 cm T1 hyperintense right adnexal lesion is noted. L1-2: The central canal and neural foramen are patent. L2-3: The central canal and neural foramen are patent. L3-4: The central canal and neural foramen are patent. L4-5: Central canal and neural foramen are patent. L5-S1: There is mild disc space narrowing. Note is made of a central disc protrusion. This results in mild narrowing of the central canal and mild to moderate narrowing of the bilateral lateral recesses. There is mild left neural foraminal stenosis. Right neural foramen is patent. Abnormal epidural enhancement is noted at this level as well as within the sacral canal. IMPRESSION: 1. Abnormal epidural enhancement within the lower lumbar and sacral canals. Mild lumbosacral prevertebral edema and enhancement. This is nonspecific but given the clinical history is suspicious for an infectious process with possible epidural phlegmon. No rim-enhancing fluid collection to suggest abscess. If persistent back pain, short-term follow-up lumbar spine MRI with and without contrast is recommended. 2. No evidence for discitis or osteomyelitis. 3. Central disc protrusion at L5-S1 which results in mild narrowing of the central canal and moderate narrowing of both lateral recesses. 4. 4 cm T1 hyperintense right adnexal lesion. This favors a hemorrhagic ovarian cyst or endometrioma. ACT 112: Negative or not required by law. Electronically signed by: Cristobal Olvera M.D. 08/04/2022 11:13 AM MDM Narrative Prior records/ancillary studies reviewed and summarized above. Nursing notes reviewed. Additional history obtained from family. The patient's history was concerning for chest pain, abdominal pain, subjective fever and chills. Differential diagnosis: Etiologies such as polysubstance abuse, endocarditis, sepsis, abscess, metabolic, infection, hypo/hyperglycemia, electrolyte abnormalities, cardiac sources, intracerebral event, toxicologic, neurologic, as well as others were entertained. Physical examination: As above. ER treatment provided: IV Lock An order was placed for continuous cardiac monitoring. The monitor shows a rate of 60-1 50 with a sinus rhythm per my interpretation. IV fluids, Zosyn, vancomycin, Ativan, nicotine patch On reassessment the patient felt better. Diagnostics interpretation by me: ECG: Ordered for chest pain and independently interpreted by myself EKG: Normal sinus, normal intervals, right axis, no acute ST-T wave changes, poor baseline. Impression sinus tachycardia with a right axis interpreted by my self I think arrhythmia is unlikely. EKG shows normal sinus rhythm with no interval abnormalities such as QT prolongation or WPW. There are no findings to suggest Brugada syndrome. Cardiac monitoring in the emergency department reveals no tachycardic or bradycardic dysrhythmia. Hypertrophic cardiomyopathy was considered but there are no clear historical elements pointing toward this. EKG is not suggestive. The QRS voltage is not extremely large and there are no suggestive Q waves. The labs Independently Interpreted by myself revealed leukocytosis, elevated inflammatory markers Blood cultures pending Negative hCG Urine seems consistent with contamination Positive drug screen for methamphetamines and marijuana Imaging studies: Chest x-ray with no acute consolidation, pneumothorax or free air per my independent interpretation CTA CHEST: No pulmonary embolism, dense consolidation, pleural effusion, or pneumothorax. CT ABDOMEN & PELVIS With Contrast: 3.8 x 2.8 cm right ovarian cyst. Status post cholecystectomy. Radiologist: Timmy Maxwell MD MRI was ordered and will be done in the morning for rule out epidural abscess HEART SCORE: Hx: high/mod/low suspicion: 0 ECG: ST depression/nonspecific changes/normal: 0 Age: Greater than 65/45-64/less than 45: 0 Risk factors: (Hypertension, hyperlipidemia, diabetes, coronary disease, tobacco use, cocaine use): 1 Troponin: Greater than 2 times normal limits/1-2 times normal limits/normal: 0 Total: 1 The pulmonary embolism rule out criteria (PERC rule) Age <50 years 0 Heart rate <100 bpm 1 Oxyhemoglobin saturation >=5% 0 No hemoptysis 0 No estrogen use 0 No prior DVT or PE 0 No unilateral leg swelling 0 No surgery/trauma requiring hospitalization within the prior four weeks 0 (0 low risk) Total: 1 Consultation: A consultation was placed with the hospitalist. The case was discussed and diagnostics were reviewed. The patient was evaluated in the ER for further treatment. Exam and history seem consistent with sepsis with concerns for epidural spinal abscess. Labs and advanced imaging ordered for possible infection as patient was tachycardic and febrile and had severe amount of pain and a IV drug abuser. Blood cultures are pending. Inflammatory markers procalcitonin and white count are elevated. Patient is given antibiotics as above. She was reassessed multiple times. Vital signs did improve. She was feeling better. Medicine will evaluate for admission. By the evaluation outlined above emergent etiologies such as cardiac sources, intracerebral event, neurologic, abnormalities blood glucose, metabolic, as well as others were deemed relatively unlikely. The pt informed about the findings as listed above. All questions were answered and pleased with the treatment. The chart was completed utilizing [employer] voice recognition software. Grammatical errors, random word insertions, pronoun errors, and incomplete sentences are an occassional consequence of this system due to software limitations, ambient noise, and hardware issues. Any formal questions or concerns about the content, text, or information contained within the body of this dictation should be directly addressed to the physician assistant store manager for clarification. Impression & Plan Sepsis, Chest pain, Abdominal pain, acute, Acute back pain Discharge Plan Visit Data Chief Complaint: Back Injury/Pain Stated Complaint: CHEST PAIN, BACK PAIN ED Provider: Kike Worthington ED Midlevel Provider: Fallon Maxwell Discharge Problem: Sepsis, Chest pain, Abdominal pain, acute, Acute back pain Patient Disposition: Admitted As Inpatient Condition: Fair Discharge Instructions Interventions: ED Discharge Assessment Last Done: 08/04/22 05:50 : Sepsis Qualifiers: Sepsis type: sepsis due to unspecified organism Sepsis acute organ dysfunction status: unspecified Qualified Code(s): A41.9 - Sepsis, unspecified organism
[2022-08-04 02:08] LABS: Albumin Level 3.8 gm/dl (3.4-5.0); Anion Gap 9 (3-11); Bilirubin Direct 0.1 mg/dl (0-0.2); Bilirubin,Total 0.7 mg/dl (0.2-1.0); Calcium 9.2 mg/dl (8.5-10.1); Carbon Dioxide 21 mmol/L (21-32); Chloride 101 mmol/L (98-107); Magnesium 1.5 mg/dl (1.7-2.4); Potassium 3.7 mmol/L (3.5-5.1); Pregnancy Test, Serum Negative (Negative); Sodium 131 mmol/L (136-145)
[2022-08-04 02:14] LABS: Alanine Aminotransferase 13 U/L (7-52); Alkaline Phosphatase 55 U/L (34-104); Aspartate Aminotransferase 11 U/L (13-39); BUN Creatinine Ratio 9.7 (10-20); Blood Urea Nitrogen 6 mg/dl (6-23); C Reactive Protein 21.89 mg/dl (0-0.5); Est GFR (African American) 135.4 ml/min; Est GFR (Non-African American) 116.8 ml/min; Glucose 102 mg/dl (70-99(Fasting))
[2022-08-04 02:19] LABS: Troponin I High Sensitivity 6.2 pg/ml (0-14)
[2022-08-04] MEDS ORDERED: SODIUM CHLORIDE 0.9% 1000ML 1,000 ML IV ONE (02:19)
[2022-08-04 02:38] LABS: Influenza A virus by PCR Negative (Neg); Influenza B virus by PCR Negative (Neg); RSV by PCR Negative (Neg); SARS CoV2 RNA(COVID-19) Ceph NEGATIVE (Negative)
[2022-08-04] MEDS ORDERED: OPTIRAY 320 500ml IV ONE (02:45)
[2022-08-04] MEDS: MAGNESIUM SULFATE / D5W 1 GM/100 ML BAG IV SCH ×2 (03:06→04:01)
[2022-08-04 03:10] LABS: Appearance Urine Cloudy (Clear); Bacteria Urine Automated 2+ (Negative); Bilirubin Urine Negative (Negative); Blood Urine 3+ (Negative); Color Urine Yellow; Epithelial Cell Urine Auto >30 /lpf (0-5); Glucose Urine UA Negative (Negative); Ketones Urine 2+ (Negative); Leukocyte Esterase Urine Trace (Negative); Nitrite Urine Positive (Negative); Protein Urine 1+ (Negative); Specific Gravity Urine 1.019 (1.000-1.030); Urobilinogen Urine Negative (Negative)
[2022-08-04] MEDS ORDERED: LACTATED RINGER'S 1,000 ML IV ONE ×3 (03:13→22:31)
--- NOTE | 2022-08-04 03:24 | History & Physical Report ---
Date of Service August 04, 2022 Assessment & Plan (1) Sepsis: Plan: Secondary to complicated UTI Rule out spinal infection given lumbar radiculopathy symptoms and history drug abuse hx chronic pain on Suboxone treatment Constipation possibly from opioid use anxiety/mood disorder/PTSD history of seizure-like activity as per records, patient seen by [facility] Neurology outpatient in 2018 ongoing tobacco abuse Medical telemetry CS, Cefepime Add vancomycin until spinal infection ruled out by MRI lumbar spine Further management pending work-up results Bowel regimen Nicotine patch DVT prophylaxis. SCDs Re: Possible spinal procedural intervention pending MRI results Full code Patient mother requesting updates from providers. Ms. Joel Vaughn, [phone]. Text document was generated using [employer] voice recognition software. It may contain grammatical or spelling errors. Kindly contact undersigned for clarification of any documentation item in question. History of Present Illness Chief Complaint: Back pain, leg weakness Primary Care Provider: Gus Blake DO History obtained from patient, family, and records. Medical history significant for chronic pain on Suboxone treatment, past history IVDU, anxiety/mood disorder, PTSD, history of seizure-like activity as per records, ongoing tobacco abuse. Last confinement 2011 for status post section. [facility] ER visit last January 2022 for left lower lobe pneumonia status post Z-Syed Rx at home. Patient not feeling well since last week. Achy back pain with radiation to both legs and weakness. Achy abdominal pain going to the lower chest with constipation. Constipation not responsive to enemas. No shortness of breath, no cough symptoms, no headache symptoms. Patient denies recent IVDU although mother has noticed fresh track bacon on patient's arms. EMS summoned to patient's home. Patient brought to the ER for evaluation. Vancomycin and Zosyn administered at the ER. Medical History as above Surgical History : section, cholecystectomy Family History : Breast cancer, ovarian cancer, DM Personal/Social history : 5 cigarettes a day, no EtOH intake, home nursing care Allergies Allergy/AdvReac Type Severity Reaction Status Date / Time No Known Allergies Allergy Unverified 08/04/22 01:17 Home Medications Medication Instructions Recorded Confirmed Type buprenorphine 8 mg-naloxone 2 mg 1 tab sublingual BID 08/04/22 08/04/22 History sublingual tablet Past Med/Surg History Social History Smoking Status: Current every day smoker Tobacco Type: Cigarettes Hx Alcohol Use: No Preferred Language: Belarusian Option Trader Required: No Beliefs That Will Affect Care: None Current Living Situation: Alone Feels Safe at Home: Yes Safety Concerns: Feels Safe At This Time Assistive Devices: None Review of Systems Review of Systems: As per HPI, all other systems reviewed and negative Physical Exam Physical Exam: GENERAL: uncomfortable, no respiratory distress SKIN: Normal color, warm HEENT: [place] palpebral conjunctivae, no ptosis, dry buccal mucosa NECK : Supple, no tenderness CHEST : CTA, no tenderness HEART : RRR, no obvious murmurs ABDOMEN: Some distention, nontender BACK : Low back tenderness, limited straight leg raise bilateral EXTREMITIES : No LE swelling/tenderness, no other conspicuous deformities noted NEUROLOGIC : Coherent, no facial asymmetry, no other gross focality Results & Data Results & Data ([facility]) Vital Signs (Past 12 Hours) Vital Signs Temp Pulse Resp BP Pulse Ox O2 Del Method 08/04/22 03:03 91 H 24 106/64 100 08/04/22 02:28 37.6 C H 08/04/22 02:15 98 H 28 H 118/71 98 Room Air 08/04/22 00:24 37 C 136 H 18 108/75 100 Room Air Laboratory Results Laboratory Results WBC 14.74 K/ul (4.8-10.8) H 08/04/22 01:16 RBC 3.93 M/uL (4.20-5.40) L 08/04/22 01:16 Hgb 12.0 g/dl (12.0-16.0) 08/04/22 01:16 Hct 34.6 % (37.0-47.0) L 08/04/22 01:16 MCV 88.0 fL (80.0-100.0) 08/04/22 01:16 MCH 30.5 pg (25.0-34.0) 08/04/22 01:16 MCHC 34.7 g/dL (32.0-36.0) 08/04/22 01:16 RDW Std Deviation 39.3 fL (36.4-46.3) 08/04/22 01:16 RDW Coeff of Sanju 12.2 % (11.5-14.5) 08/04/22 01:16 Plt Count 169 K/uL (130-400) 08/04/22 01:16 MPV 10.6 fL (9.4-12.4) 08/04/22 01:16 Immature Gran % (Auto) 0.4 % 08/04/22 01:16 Neut % (Auto) 84.9 % 08/04/22 01:16 Lymph % (Auto) 6.7 % 08/04/22 01:16 [place] % (Auto) 7.9 % 08/04/22 01:16 Eos % (Auto) 0.0 % 08/04/22 01:16 Baso % (Auto) 0.1 % 08/04/22 01:16 Neut # (Auto) 12.52 K/uL (1.40-6.50) H 08/04/22 01:16 Lymph # (Auto) 0.99 K/uL (1.2-3.4) L 08/04/22 01:16 [place] # (Auto) 1.16 K/uL (0.11-0.59) H 08/04/22 01:16 Eos # (Auto) 0.00 K/uL (0-0.50) 08/04/22 01:16 Baso # (Auto) 0.01 K/uL (0-0.2) 08/04/22 01:16 Immature Gran # (Auto) 0.06 K/uL (0.01-0.20) 08/04/22 01:16 ESR 44 mm/hr (0-20) H 08/04/22 01:16 Sodium 131 mmol/L (136-145) L 08/04/22 01:19 Potassium 3.7 mmol/L (3.5-5.1) 08/04/22 01:19 Chloride 101 mmol/L (98-107) 08/04/22 01:19 Carbon Dioxide 21 mmol/L (21-32) 08/04/22 01:19 Anion Gap 9 (3-11) 08/04/22 01:19 BUN 6 mg/dl (6-23) 08/04/22 01:19 Creatinine 0.62 mg/dl (0.6-1.2) 08/04/22 01:19 Est Cr Clr Drug Dosing Not Reportable 08/04/22 01:19 Est GFR ( Amer) 135.4 ml/min 08/04/22 01:19 Est GFR (Non-Af Amer) 116.8 ml/min 08/04/22 01:19 BUN/Creatinine Ratio 9.7 (10-20) L 08/04/22 01:19 Glucose 102 mg/dl (70-99(Fasting)) H 08/04/22 01:19 Lactate 0.7 mmol/L (0.4-2.0) 08/04/22 01:19 Calcium 9.2 mg/dl (8.5-10.1) 08/04/22 01:19 Magnesium 1.5 mg/dl (1.7-2.4) L 08/04/22 01:19 Total Bilirubin 0.7 mg/dl (0.2-1.0) 08/04/22 01:19 Direct Bilirubin 0.1 mg/dl (0-0.2) 08/04/22 01:19 AST 11 U/L (13-39) L 08/04/22 01:19 ALT 13 U/L (7-52) 08/04/22 01:19 Alkaline Phosphatase 55 U/L (34-104) 08/04/22 01:19 Troponin I High Sens 6.2 pg/ml (0-14) 08/04/22 01:19 C-Reactive Protein 21.89 mg/dl (0-0.5) H 08/04/22 01:19 Total Protein 7.0 gm/dl (6.0-8.3) 08/04/22 01:19 Albumin 3.8 gm/dl (3.4-5.0) 08/04/22 01:19 Procalcitonin 0.92 ng/ml (0-0.5) H 08/04/22 01:19 HCG, Qual Negative (Negative) 08/04/22 01:19 Urine Color Yellow 08/04/22 03:00 Urine Appearance Cloudy (Clear) A 08/04/22 03:00 Urine pH 7.0 (4.5-7.5) 08/04/22 03:00 Ur Specific [place] 1.019 (1.000-1.030) 08/04/22 03:00 Urine Protein 1+ (Negative) H 08/04/22 03:00 Urine Glucose (UA) Negative (Negative) 08/04/22 03:00 Urine Ketones 2+ (Negative) H 08/04/22 03:00 Urine Blood 3+ (Negative) H 08/04/22 03:00 Urine Nitrite Positive (Negative) A 08/04/22 03:00 Urine Bilirubin Negative (Negative) 08/04/22 03:00 Urine Urobilinogen Negative (Negative) 08/04/22 03:00 Ur Leukocyte Esterase Trace (Negative) H 08/04/22 03:00 Urine WBC (Auto) 5-10 /hpf (0-5) H 08/04/22 03:00 Urine RBC (Auto) 10-30 /hpf (0-4) H 08/04/22 03:00 U Hyaline Cast (Auto) 1-5 /lpf (0-5) 08/04/22 03:00 U Epithel Cells (Auto) >30 /lpf (0-5) H 08/04/22 03:00 Urine Bacteria (Auto) 2+ (Negative) H 08/04/22 03:00 SARS-CoV-2 (PCR) NEGATIVE (Negative) 08/04/22 01:49 Influenza Type A (PCR) Negative (Neg) 08/04/22 01:49 Influenza Type B (PCR) Negative (Neg) 08/04/22 01:49 RSV (RT-PCR) Negative (Neg) 08/04/22 01:49 Diagnostic Findings CTA CHEST initial read: No pulmonary embolism, dense consolidation, pleural effusion, or pneumothorax. CT ABDOMEN & PELVIS With Contrast: 3.8 x 2.8 cm right ovarian cyst. Status post cholecystectomy. EKG as per my interpretation : Rate 120, sinus tachycardia, RAD, no ischemia (1) Sepsis Sepsis acute organ dysfunction status: unspecified Sepsis type: sepsis due to unspecified organism Qualified Code(s): A41.9 - Sepsis, unspecified organism
[2022-08-04 03:32] LABS: Amphetamines+Metham, Urine Pos (Neg); Barbiturates, Urine Neg (Neg); Benzodiazepine, Urine Neg (Neg); Cocaine, Urine Neg (Neg); MDMA (Ecstacy), Urine Neg (Neg); Methadone, Urine Neg (Neg); Opiate, Urine Neg (Neg); Phencyclidine, Urine Neg (Neg)
[2022-08-04 04:01] LABS: Thyroid Stimulating Hormone 0.262 uIu/ml (0.300-4.500)
[2022-08-04] MEDS ORDERED: NICOTINE 21 MG/24 HR TDSY TD STA (04:06)
[2022-08-04] MEDS ORDERED: LORazepam 2 MG/1 ML VIAL IV STA (04:30)
[2022-08-04 04:39] LABS: T4 Free Thyroxine 1.04 ng/dl (0.61-1.60)
[2022-08-04] MEDS ORDERED: POLYETHYLENE (MIRALAX) 17 GM PACK PO STA (04:53)
[2022-08-04] MEDS ORDERED: NICOTINE 14 MG/24 HR PATCH TD STA (05:05)
[2022-08-04] MEDS ORDERED: DOCUSATE SODIUM/SENNA 50/8.6MG TAB PO STA (05:08)
[2022-08-04] MEDS ORDERED: LACTULOSE SYRUP 30 GM/45 ML UDP PO STA (05:09)
[2022-08-04] MEDS: ACETAMINOPHEN 325 MG TAB PO PRN ×4 (06:38→21:12)
--- NOTE | 2022-08-04 07:38 | Electrocardiogram Report ---
Test Reason : Blood Pressure : / mmHG Vent. Rate : 119 BPM Atrial Rate : 119 BPM P-R Int : 120 ms QRS Dur : 074 ms QT Int : 296 ms P-R-T Axes : 074 094 048 degrees QTc Int : 416 ms Poor data quality, interpretation may be adversely affected Sinus tachycardia Rightward axis Borderline ECG When compared with ECG of 29-AUG-2020 00:41, Vent. rate has increased BY 47 BPM Confirmed by Nikita Phelps ([id number]) on 08/04/2022 7:37:57 AM Referred By: REFERRED SELF Confirmed By:Khalif Phelps
--- NOTE | 2022-08-04 07:52 | CT Scan Report ---
CT ANGIOGRAPHY OF THE CHEST, PULMONARY EMBOLUS PROTOCOL CLINICAL HISTORY: PE, IVDU, CP/SOB, tachycardia COMPARISON STUDY: Chest radiograph January 28, 2022 and August 04, 2022. TECHNIQUE: Following IV administration of 110 mL of Optiray, helical axial images of the chest were o btained utilizing the pulmonary embolus protocol. Maximal intensity projections and sagittal and cor onal reformats were viewed on an independent 3D workstation. IV contrast was administered without co mplication. Automated exposure control was utilized for the study. A dose lowering technique was ut ilized adhering to the principles of ALARA. FINDINGS: No pulmonary emboli are identified. There is no thoracic aortic dissection. Size of the he art is normal. No pericardial effusion. No thoracic lymphadenopathy. A 1.2 cm right lobe thyroid nodu le is present. There is no consolidation to suggest pneumonia. Subpleural left lung opacity represent s atelectasis. Central airways are patent. No pneumothorax or effusion. No acute fractures within the bony thorax are noted. There is borderline splenomegaly. Abdomen and pelvis CT will be reported sepa rately. IMPRESSION: 1. No pulmonary emboli identified. 2. No consolidation to suggest pneumonia. 3. Subpleural left lower lobe opacity consistent with atelectasis. 4. Borderline splenomegaly. ACT 112: Negative or not required by law. Electronically signed by: Cristobal Olvera M.D. 08/04/2022 7:50 AM
--- NOTE | 2022-08-04 07:58 | CT Scan Report ---
CT OF THE ABDOMEN AND PELVIS WITH CONTRAST CLINICAL HISTORY: Severe abdominal pain, IVDU. COMPARISON STUDY: Abdominal series January 28, [address] of the abdomen and pelvis July 05, 2007. TECHNIQUE: Following IV administration of 110 mL of Optiray, axial images of the abdomen and pelvis w ere obtained from the lung bases to the proximal femurs. Images were reviewed in the axial, sagittal, and coronal planes. IV contrast was administered without complication. Automated exposure control w as utilized for the study. A dose lowering technique was utilized adhering to the principles of ALAR A. CT DOSE: 481.15 mGy.cm FINDINGS: Subpleural left lower lobe opacity favors atelectasis. There is borderline splenomegaly. Th ere is no biliary ductal dilatation status post cholecystectomy. Liver morphology is normal. There is a 1 cm hypodense lateral segment hepatic lesion on axial image 117 of 471. This is indeterminate but probably benign. Adrenal glands, kidneys and pancreas are normal. There is no hydronephrosis. There is no pancreatic ductal dilatation. The caliber and wall thickness of small and large bowel are casandra l. The appendix is normal. There is no lymphadenopathy. Major vasculature is patent. Trace fluid with in the pelvis is probably physiologic. 3.9 cm right ovarian cyst is noted. No acute fractures. IMPRESSION: 1. No bowel obstruction. No bowel wall thickening. Normal appendix. 2. 3.9 cm right ovarian cyst. Trace fluid within the pelvis. 3. Borderline splenomegaly. ACT 112: Negative or not required by law. Electronically signed by: Cristobal Olvera M.D. 08/04/2022 7:57 AM
--- NOTE | 2022-08-04 08:03 | XRay Report ---
XR chest 1V portable CLINICAL HISTORY: Sepsis. COMPARISON STUDY: Chest radiograph January 28, 2022. FINDINGS: Lung volumes are normal. Lungs are clear. There is no pneumothorax or pleural effusion. Car diac size is normal. Mediastinal contours are normal. There is no evidence for pulmonary edema. IMPRESSION: No acute cardiopulmonary findings. ACT 112: Negative or not required by law. Electronically signed by: Cristobal Olvera M.D. 08/04/2022 8:02 AM
[2022-08-04] MEDS: CEFEPIME 2,000 MG in SYRINGE 0 ML IV SCH ×3 (08:29→23:39)
[2022-08-04] MEDS: BUPRENORPHINE/NALOXONE 8/2 MG TAB SL SCH ×2 (09:27→20:01)
[2022-08-04] MEDS: KETOROLAC TROMETHAMINE 15 MG/ML VIAL IV PRN ×2 (09:27→16:18)
--- NOTE | 2022-08-04 10:33 | Pharmacy Report ---
Pharmacy PK ABX Note - Date of Service August 04, 2022 - Assessment and Plan Assessment 37 year old F receiving Vancomycin and Cefepime for treatment of possible UTI. * PMHx significant for IVDA. Ruling out discitis given back pain. * 24 Tmax 38.8oC. Leukocytosis of 14.7k. SCr 0.62. * Blood and urine cx pending. Plan Vancomycin * Loading dose: 2000 mg IV x 1 * Maintenance dose: 1250 mg IV every 12 hours * Regimen is predicted to achieve target AUC/RUSSELL of 400-600 mg/L.hr * Random level ordered for: 08/06/22 Cefepime * 2 g IV every 8 hours Pharmacy will continue to follow and will adjust dose/frequency as necessary. Thank you. Pharmacy has transitioned to AUC monitoring for vancomycin. AUC/RUSSELL is the preferred PK/PD target and is associated with decreased risk of nephrotoxicity compared to traditional trough targets.
[2022-08-04] MEDS: LIDOCAINE 5% 1 PATCH TD SCH (11:08)
[2022-08-04] MEDS: VANCOMYCIN HCL 1,250 MG in SODIUM CHLORIDE 0.9% 250 ML IV SCH ×2 (11:08→23:42)
[2022-08-04] MEDS: SODIUM CHLORIDE 0.9% 1000ML 1,000 ML IV SCH ×3 (11:08→20:03)
--- NOTE | 2022-08-04 11:15 | Magnetic Resonance Report ---
MRI OF THE LUMBAR SPINE WITH AND WITHOUT CONTRAST CLINICAL HISTORY: severe pain, IVDU, fever, ? abscess COMPARISON STUDY: Lumbar spine radiographs October 08, 2013. TECHNIQUE: Utilizing a 1.5 Kasandra magnet and dedicated coil, multiplanar, multiecho imaging of the [facility] spine was performed before and after uneventful IV administration of 5.5 mL of Gadavist. FINDINGS: For purposes of numbering on this exam, the L5-S1 disc space is assigned to axial image 26 of 29. Ali gnment of the lumbar spine is anatomic. Vertebral body heights are maintained. There is no marrow moshe ma or replacement. The conus terminates at the lower L1 level. Note is made of mild lower lumbar and presacral edema and enhancement. No associated fluid collection is present. In addition, there is abn ormal epidural enhancement within the lower lumbar canal as well as the sacral canal. No associated r im-enhancing fluid collection is identified. There is no evidence for discitis. There is no evidence for ostomy myelitis. Irregularity of the superior endplate of S1 is likely degenerative. A 4 cm T1 hy perintense right adnexal lesion is noted. L1-2: The central canal and neural foramen are patent. L2-3: The central canal and neural foramen are patent. L3-4: The central canal and neural foramen are patent. L4-5: Central canal and neural foramen are patent. L5-S1: There is mild disc space narrowing. Note is made of a central disc protrusion. This results in mild narrowing of the central canal and mild to moderate narrowing of the bilateral lateral recesses . There is mild left neural foraminal stenosis. Right neural foramen is patent. Abnormal epidural enh ancement is noted at this level as well as within the sacral canal. IMPRESSION: 1. Abnormal epidural enhancement within the lower lumbar and sacral canals. Mild lumbosacral preverte bral edema and enhancement. This is nonspecific but given the clinical history is suspicious for an i nfectious process with possible epidural phlegmon. No rim-enhancing fluid collection to suggest absce ss. If persistent back pain, short-term follow-up lumbar spine MRI with and without contrast is recom mended. 2. No evidence for discitis or osteomyelitis. 3. Central disc protrusion at L5-S1 which results in mild narrowing of the central canal and moderate narrowing of both lateral recesses. 4. 4 cm T1 hyperintense right adnexal lesion. This favors a hemorrhagic ovarian cyst or endometrioma. ACT 112: Negative or not required by law. Electronically signed by: Cristobal Olvera M.D. 08/04/2022 11:13 AM
--- NOTE | 2022-08-04 11:19 | CT Scan Report ---
CT OF THE HEAD WITHOUT CONTRAST CLINICAL HISTORY: r/o septic emboli COMPARISON STUDY: Head CT August 29, 2020. CT DOSE: 537.48 mGy.cm TECHNIQUE: Helical axial images of the head were obtained without IV contrast. Automated exposure con trol was utilized for the study. A dose lowering technique was utilized adhering to the principles o f ALARA. FINDINGS: No acute intracranial hemorrhage, midline shift or mass effect is present. The ventricular system is unremarkable. The basal cisterns are patent. No extra-axial collections are present. There are no findings to suggest acute dural sinus thrombosis or acute territorial infarct. No significant calvarial abnormalities are present. Visualized portions of the sinuses and mastoid air cells are diomedes ar. IMPRESSION: No acute intracranial findings. ACT 112: Negative or not required by law. Electronically signed by: Cristobal Olvera M.D. 08/04/2022 11:17 AM
--- NOTE | 2022-08-04 14:01 | Hospitalist Progress Note ---
Date of Service August 04, 2022 Assessment & Plan (1) Sepsis: Plan: Secondary to complicated UTI Rule out spinal infection given lumbar radiculopathy symptoms and history drug abuse Lumbar spine MRI: 1. Abnormal epidural enhancement within the lower lumbar and sacral canals. Mild lumbosacral prevertebral edema and enhancement. This is nonspecific but given the clinical history is suspicious for an infectious process with possible epidural phlegmon. No rim-enhancing fluid collection to suggest abscess. If persistent back pain, short-term follow-up lumbar spine MRI with and without contrast is recommended. 2. No evidence for discitis or osteomyelitis. 3. Central disc protrusion at L5-S1 which results in mild narrowing of the central canal and moderate narrowing of both lateral recesses. 4. 4 cm T1 hyperintense right adnexal lesion. This favors a hemorrhagic ovarian cyst or endometrioma. Blood cultures: pending Urine culture: pending continue IV Vanco + Cefepime Ortho Spine consulted Drug use patient states she smokes meth UDS: (+) meth, marijuana monitor for withdrawal symptoms hx chronic pain on Suboxone treatment Constipation possibly from opioid use anxiety/mood disorder/PTSD history of seizure-like activity as per records, patient seen by [facility] in 2018 ongoing tobacco abuse Bowel regimen Nicotine patch DVT prophylaxis. SCDs Re: Possible spinal procedural intervention pending MRI results Full code plan of care discussed with patient in detail and at length all questions answered she is understanding, agreeable, comfortable with the plan of care Admission and Anticipated Discharge Date Admission Date: August 04, 2022 Subjective ff up for back pain, fever, etc RN Alivia at the bedside throughout whole encounter seen resting in bed, not in distress reports low back pain no leg weakness/numbness no cough, chest pain, headache, neck pain, abdominal pain, nausea/vomiting, urinary symptoms, diarrhea admits to smoking meth, last IV drug use 2 months ago no other symptoms Review of Systems Review of Systems: all noted and negative except for above Physical Exam Physical Exam: General- oriented x 3, not in distress, speaks in sentences with no effort or accessory muscle use Eyes- anicteric Neck- no JVD Lungs- clear BS bilaterally, no rales/wheezes Heart- normal rate, regular rhythm; no murmurs Abdomen- normal bowel sounds, nondistended, soft, no tenderness Extremities- no pretibial edema, no calf tenderness Neuro- alert, oriented x 3; no gross focal neurologic deficits Skin- warm & dry Results & Data Results & Data ([facility]) Vital Signs (Past 12 Hours) Vital Signs Temp Pulse Pulse Resp BP BP Pulse Ox 08/04/22 12:00 97 H 21 08/04/22 12:00 94/53 L 08/04/22 11:14 89 19 99 08/04/22 11:12 91/56 L 08/04/22 09:31 90 24 98 08/04/22 09:31 104/64 08/04/22 12:03 37.4 C 08/04/22 10:24 08/04/22 08:00 38.1 C H 08/04/22 09:00 37.6 C H 109 H 27 H 98 08/04/22 09:00 97/64 L 08/04/22 08:30 118 H 26 H 98 08/04/22 08:00 112 H 22 99 08/04/22 08:00 84/52 L 08/04/22 07:30 115 H 28 H 96 08/04/22 07:00 113 H 30 H 94 08/04/22 07:00 98/57 L 08/04/22 06:01 38.8 C H 126 H 30 H 110/73 99 08/04/22 05:30 37.0 C 107 H 24 118/76 100 08/04/22 04:01 97 H 24 119/67 100 08/04/22 03:03 91 H 24 106/64 100 08/04/22 02:28 37.6 C H 08/04/22 02:15 98 H 28 H 118/71 98 O2 Del Method 08/04/22 12:00 08/04/22 12:00 08/04/22 11:14 Room Air 08/04/22 11:12 08/04/22 09:31 Room Air 08/04/22 09:31 08/04/22 12:03 08/04/22 10:24 Room Air 08/04/22 08:00 08/04/22 09:00 08/04/22 09:00 08/04/22 08:30 Room Air 08/04/22 08:00 08/04/22 08:00 08/04/22 07:30 08/04/22 07:00 08/04/22 07:00 08/04/22 06:01 Room Air 08/04/22 05:30 08/04/22 04:01 08/04/22 03:03 08/04/22 02:28 08/04/22 02:15 Room Air all noted and reviewed including below (1) Sepsis Sepsis acute organ dysfunction status: unspecified Sepsis type: sepsis due to unspecified organism Qualified Code(s): A41.9 - Sepsis, unspecified organism
[2022-08-04 14:30] LABS: A calco-baum cmplx NotReported Not Detected (NotDetected); Bact fragilis Not Reported Not Detected (NotDetected); C auris Not Reported Not Detected (NotDetected); Calbicans Not Reported Not Detected (NotDetected); Candida glabrata Not Reported Not Detected (NotDetected); Candida krusei Not Reported Not Detected (NotDetected); Cneoformans/gatti Not Reported Not Detected (NotDetected); Cparapsilosis Not Reported Not Detected (NotDetected); Ctropicalis Not Reported Not Detected (NotDetected); E cloacae compx Not Reported Not Detected (NotDetected); Efaecalis Not Reported Not Detected (NotDetected); Efaecium Not Reported Not Detected (NotDetected); Enterobacterales Not Reported Not Detected (NotDetected); Escherichia coli Not Reported Not Detected (NotDetected); H influenzae Not Reported Not Detected (NotDetected); K aerogenes Not Reported Not Detected (NotDetected); Koxytoca Not Reported Not Detected (NotDetected); Kpneumoniae grp Not Reported Not Detected (NotDetected); Lmonocyt Not Reported Not Detected (NotDetected); N meningitidis Not Reported Not Detected (NotDetected); P aeruginosa Not Reported Not Detected (NotDetected); Proteus spp Not Reported Not Detected (NotDetected); Salmonella spp Not Reported Not Detected (NotDetected); Smarcescens Not Reported Not Detected (NotDetected); Staph lugdunensis Not Reported Not Detected (NotDetected); Staph spp. Not Reported DETECTED (NotDetected); Staphaureus Not Reported DETECTED (NotDetected); Staphepi Not Reported Not Detected (NotDetected); Staphylococcus spp. DETECTED (NotDetected); Stenmaltophilia Not Reported Not Detected (NotDetected); Strep agal(GrpB) Not Reported Not Detected (NotDetected); Strep pneum Not Reported Not Detected (NotDetected); Strep pyog (GrpA) Not Reported Not Detected (NotDetected); Strep spp Not Reported Not Detected (NotDetected); mecAC+MREJ Resistant Gene MRSA Not Detected (NotDetected)
[2022-08-04] MEDS: hydrOXYzine HCl 10 MG TAB PO PRN (20:20)
[2022-08-04] MEDS ORDERED: KETOROLAC TROMETHAMINE 15 MG/ML VIAL IV ONE (22:16)
[2022-08-05] MEDS ORDERED: LORazepam 2 MG/1 ML VIAL IV PRN (06:13)
--- NOTE | 2022-08-05 06:20 | Communication Note ---
Date of Service: August 05, 2022
[2022-08-05] MEDS: hydrOXYzine HCl 10 MG TAB PO PRN (06:22)
[2022-08-05 06:40] LABS: Hematocrit (blood only) 31.4 % (37.0-47.0); Hemoglobin 10.5 g/dl (12.0-16.0); Mean Corpuscular Hemoglobin 30.3 pg (25.0-34.0); Mean Corpuscular Hgb Conc 33.4 g/dL (32.0-36.0); Mean Corpuscular Volume 90.5 fL (80.0-100.0); Mean Platelet Volume 11.2 fL (9.4-12.4); Platelet Count 129 K/uL (130-400); RDW Coefficient of Variation 12.6 % (11.5-14.5); RDW Standard Deviation 41.7 fL (36.4-46.3); Red Blood Count 3.47 M/uL (4.20-5.40)
[2022-08-05] MEDS: ACETAMINOPHEN 325 MG TAB PO PRN ×3 (06:47→20:03)
[2022-08-05 06:49] LABS: Calcium 8.3 mg/dl (8.5-10.1); Magnesium 2.1 mg/dl (1.7-2.4)
[2022-08-05 06:52] LABS: Basophils # (auto) 0.01 K/uL (0-0.2); Basophils % (auto) 0.1 %; Eosinophils # (auto) 0.08 K/uL (0-0.50); Eosinophils % (auto) 0.8 %; Immature Granulocytes # (auto) 0.24 K/uL (0.01-0.20); Immature Granulocytes % (auto) 2.3 %; Lymphocytes # (auto) 0.84 K/uL (1.2-3.4); Monocytes # (auto) 0.84 K/uL (0.11-0.59); Neutrophils # (auto) 8.49 K/uL (1.40-6.50); Neutrophils % (auto) 80.8 %
[2022-08-05 06:55] LABS: BUN Creatinine Ratio 14.1 (10-20); Creatinine Clr Calc Pharmacy 91.5 ml/min; Est GFR (Non-African American) 115.6 ml/min
[2022-08-05] MEDS: CEFEPIME 2,000 MG in SYRINGE 0 ML IV SCH ×2 (08:03→15:43)
[2022-08-05] MEDS: BUPRENORPHINE/NALOXONE 8/2 MG TAB SL SCH ×2 (08:03→20:03)
[2022-08-05] MEDS: LIDOCAINE 5% 1 PATCH TD SCH (08:03)
[2022-08-05] MEDS: DOCUSATE SODIUM/SENNA 50/8.6MG TAB PO SCH (08:37)
--- NOTE | 2022-08-05 09:56 | Consultation ---
Date of Consultation August 05, 2022 Assessment & Plan (1) Acute back pain: Plan Dr. Apple has reviewed recent lumbar MRI. Blood cultures are positive for staph aureus. Urine culture is positive for E. coli. No evidence of abscess/discitis,osteomyelitis on MRI. No plans for surgical intervention at this point in time. Continue with pain control. She needs an infectious disease consult which I believe is pending at this time. PICC line is already been in place. Currently on IV Vanco. It is recommended follow-up with a tertiary care center upon discharge for her spine care. History of Present Illness Reason for Consultation: Lumbar infection Attending Physician: Nehemiah Marinelli MD History of Present Illness This is a 37-year-old female with known recent drug use history. Toxicology screen is positive for methamphetamine and marijuana. She presented to the emergency room yesterday with complaints of chest pain, abdominal pain and lower back pain. Today she reports she has had back pain for several days. She states that it is rating down both legs left is greater than right. No specific pattern. Any type of movement reproduces her pain. Rest is palliative. She states at home she was treating this with [id number] ibuprofen and Tylenol. She denies any history of lower back issues prior to this recent onset. Typically ambulates independently. Denies perineum numbness. Denies bowel or bladder dysfunction. During her admission, she was found to have a UTI/sepsis. Currently on IV vancomycin Allergies Allergy/AdvReac Type Severity Reaction Status Date / Time No Known Allergies Allergy Unverified 08/04/22 01:17 Home Medications Medication Instructions Recorded Confirmed Type buprenorphine 8 mg-naloxone 2 mg 1 tab sublingual BID 08/04/22 08/04/22 History sublingual tablet Patient History Social History Smoking Status: Current every day smoker Tobacco Type: Cigarettes Hx Alcohol Use: No Preferred Language: [place] [employer] Required: No Beliefs That Will Affect Care: None Current Living Situation: Alone Feels Safe at Home: Yes Safety Concerns: Feels Safe At This Time Assistive Devices: None Review of Systems Review of Systems: All systems reviewed & are unremarkable except as noted in HPI & below Physical Exam Physical Exam: Patient is alert and oriented x3 but groggy and diaphoretic Answers questions appropriately She has breakaway weakness over the left lower extremity motor testing groups Strength intact right lower extremity. Diffuse tenderness to palpation about the midline lumbar spine Negative tension signs. Negative logrolling bilaterally. Constitutional: + thin and + diaphoretic Eyes: normal visual garcia by confrontation ENMT: external ear and nose normal, oropharynx normal Neck: normal visual inspection Respiratory: normal respiratory effort Cardiovascular: Extremities: normal capillary refill Gastrointestinal (Abdomen): Inspection/Auscultation: abdomen normal to inspection Musculoskeletal: Spine: + pain with thoraco-lumbar ROM and + lumbar spinal tenderness Skin: normal turgor Neurologic: moves all extremities Psychiatric: A+Ox3, euthymic affect Eye Contact: + fair eye contact Affect: + flat affect Results & Data ([facility]) Vital Signs (Past 12 Hours) Vital Signs Temp Pulse Pulse Resp BP Pulse Ox O2 Del Method 08/05/22 07:30 37.8 C H 96 H 22 101/66 94 Room Air 08/05/22 07:16 102 H 08/05/22 06:44 38.8 C H 99 H 18 101/66 94 Room Air 08/05/22 06:08 37.7 C H 105 H 18 107/77 95 Room Air 08/05/22 02:43 37.3 C 80 16 94/59 L 96 Room Air 08/05/22 02:18 37.4 C 90 18 91/56 L 97 Room Air 08/04/22 23:50 90 08/04/22 23:46 37.7 C H 86 18 92/55 L 96 Room Air 08/04/22 22:53 38.9 C H 99 H 18 94/58 L 96 Room Air 08/04/22 22:04 38.7 C H Diagnostic Findings [place], [place] [phone] Magnetic Resonance Report Patient:CINDY BOCANEGRA Admit Date:08/04/22 MR#:[id number] Address1:[address] [place] [address] Acct ID:[id number] Address2: Date:1985 [facility] Zip:[place] [address] Age:37 Location:1E Sex:F Room/Bed:[facility] Att Phy:Nehemiah Marinelli MD Diagnosis:SEPSIS Zulma Phy:Gus Blake DO Service Date:08/04/22 Fam Phy: Interpreting Phy:Cristobal Olvera MDAdmit Phy:Oracio Esqueda MD Ordering Phy:Fallon Maxwell PA-C cc: ~ MRI OF THE LUMBAR SPINE WITH AND WITHOUT CONTRAST CLINICAL HISTORY: severe pain, IVDU, fever, ? abscess COMPARISON STUDY: Lumbar spine radiographs October 08, 2013. TECHNIQUE: Utilizing a 1.5 Kasandra magnet and dedicated coil, multiplanar, multiecho imaging of the lumbar spine was performed before and after uneventful IV administration of 5.5 mL of Gadavist. FINDINGS: For purposes of numbering on this exam, the L5-S1 disc space is assigned to axial image 26 of 29. Alignment of the lumbar spine is anatomic. Vertebral body heights are maintained. There is no marrow edema or replacement. The conus terminates at the lower L1 level. Note is made of mild lower lumbar and presacral edema and enhancement. No associated fluid collection is present. In addition, there is abnormal epidural enhancement within the lower lumbar canal as well as the sacral canal. No associated rim-enhancing fluid collection is identified. There is no evidence for discitis. There is no evidence for ostomy myelitis. Irregularity of the superior endplate of S1 is likely degenerative. A 4 cm T1 hyperintense right adnexal lesion is noted. L1-2: The central canal and neural foramen are patent. L2-3: The central canal and neural foramen are patent. L3-4: The central canal and neural foramen are patent. L4-5: Central canal and neural foramen are patent. L5-S1: There is mild disc space narrowing. Note is made of a central disc protrusion. This results in mild narrowing of the central canal and mild to moderate narrowing of the bilateral lateral recesses. There is mild left neural foraminal stenosis. Right neural foramen is patent. Abnormal epidural enhancement is noted at this level as well as within the sacral canal. IMPRESSION: 1. Abnormal epidural enhancement within the lower lumbar and sacral canals. Mild lumbosacral prevertebral edema and enhancement. This is nonspecific but given the clinical history is suspicious for an infectious process with possible epidural phlegmon. No rim-enhancing fluid collection to suggest abscess. If persistent back pain, short-term follow-up lumbar spine MRI with and without contrast is recommended. 2. No evidence for discitis or osteomyelitis. 3. Central disc protrusion at L5-S1 which results in mild narrowing of the central canal and moderate narrowing of both lateral recesses. 4. 4 cm T1 hyperintense right adnexal lesion. This favors a hemorrhagic ovarian cyst or endometrioma. ACT 112: Negative or not required by law. Electronically signed by: Cristobal Olvera M.D. 08/04/2022 11:13 AM Dictated:08/04/22 1048 Transcribed: 08/04/22 1048
[2022-08-05] MEDS: VANCOMYCIN HCL 1,250 MG in SODIUM CHLORIDE 0.9% 250 ML IV SCH (11:27)
--- NOTE | 2022-08-05 13:50 | Pharmacy Report ---
Pharmacy Vanc AUC Short Note - Date of Service August 05, 2022 - Assessment & Plan Assessment 37 year old F receiving vancomycin and cefepime for UTI/bacteremia, concerns for spinal infection. No evidence of abscess/discitis,osteomyelitis on MRI. No plans for surgical intervention at this point in time per notes. Prelim blood cultures with staph species, urine prelim with e coli - awaiting sensitivities Day #2 of antimicrobial therapy. Plan Vancomycin * AUC/RUSSELL is the preferred PK/PD target for vancomycin * AUC guided dosing is effective and associated with decreased risk of nephrotoxicity compared to traditional trough targets * Random vancomycin level today came back at ~10 mcg/ml - plan to continue current vancomycin regimen of 1250 mg iv q 12 hrs as current regimen is predicted to achieve a trough level of ~11 mcg/ml and target AUC/RUSSELL of 400- 600 * Plan to recheck level in next 2-3 days if continued Pharmacy will continue to follow and will adjust dose/frequency as necessary. Thank you.
[2022-08-05] MEDS: SODIUM CHLORIDE 0.9% 1000ML 1,000 ML IV SCH ×2 (14:59→23:40)
--- NOTE | 2022-08-05 15:33 | Hospitalist Progress Note ---
Date of Service August 05, 2022 Assessment & Plan (1) Sepsis: Plan: Secondary to complicated UTI Rule out spinal infection given lumbar radiculopathy symptoms and history drug abuse Lumbar spine MRI: 1. Abnormal epidural enhancement within the lower lumbar and sacral canals. Mild lumbosacral prevertebral edema and enhancement. This is nonspecific but given the clinical history is suspicious for an infectious process with possible epidural phlegmon. No rim-enhancing fluid collection to suggest abscess. If persistent back pain, short-term follow-up lumbar spine MRI with and without contrast is recommended. 2. No evidence for discitis or osteomyelitis. 3. Central disc protrusion at L5-S1 which results in mild narrowing of the central canal and moderate narrowing of both lateral recesses. 4. 4 cm T1 hyperintense right adnexal lesion. This favors a hemorrhagic ovarian cyst or endometrioma. Blood cultures: Staph aureus species Repeat blood cultures: Pending Urine culture: E. coli, sensitivities pending Transthoracic echocardiogram: No signs of vegetation Positive fever spikes ID consulted-recommend to continue IV vancomycin and cefepime day #2 Ortho consulted-no surgical intervention, continue IV antibiotics, outpatient follow-up with tertiary care facility Drug use patient states she smokes meth UDS: (+) meth, marijuana monitor for withdrawal symptoms As needed Ativan ordered hx chronic pain on Suboxone treatment Constipation possibly from opioid use anxiety/mood disorder/PTSD history of seizure-like activity as per records, patient seen by [facility] Neurology outpatient in 2018 ongoing tobacco abuse Bowel regimen Nicotine patch DVT prophylaxis. Lovenox subcutaneous daily Full code plan of care discussed with patient and her mother at the bedside in detail and at length all questions answered They are understanding, agreeable, comfortable with the plan of care Admission and Anticipated Discharge Date Admission Date: August 04, 2022 Subjective Follow-up for sepsis, bacteremia, lumbar spine epidural infection, UTI, etc. Seen resting in bed, comfortable, not in distress, mostly sleeping Patient's mother at the bedside visiting throughout whole encounter Patient has poor appetite today, quite drowsy, for discharge ago, did not finish chicken soup Has some lower back pain, but no headache, chest pain, shortness of breath, abdominal pain, nausea vomiting No other symptoms Review of Systems Review of Systems: all noted and negative except for above Physical Exam Physical Exam: General- oriented x 3, not in distress, drowsy, no effort from accessory muscle use Eyes- anicteric Neck- no JVD Lungs- clear BS bilaterally, no rales/wheezes Heart- normal rate, regular rhythm; no murmurs Abdomen- normal bowel sounds, nondistended, soft, nontender Extremities- no pretibial edema, no calf tenderness Neuro- alert, oriented x 3; no gross focal neurologic deficits Skin- warm & dry Results & Data Results & Data ([facility]) Vital Signs (Past 12 Hours) Vital Signs Temp Pulse Pulse Resp BP Pulse Ox O2 Del Method 08/05/22 15:22 39.2 C H 08/05/22 14:54 39.5 C H 104 H 18 117/73 92 Room Air 08/05/22 11:04 38 C H 88 20 94/54 L 94 Room Air 08/05/22 07:30 37.8 C H 96 H 22 101/66 94 Room Air 08/05/22 07:16 102 H 08/05/22 06:44 38.8 C H 99 H 18 101/66 94 Room Air 08/05/22 06:08 37.7 C H 105 H 18 107/77 95 Room Air all noted and reviewed including below (1) Sepsis Sepsis acute organ dysfunction status: unspecified Sepsis type: sepsis due to unspecified organism Qualified Code(s): A41.9 - Sepsis, unspecified organism
[2022-08-05] MEDS: ENOXAPARIN INJ 40 MG/0.4 ML SYR SQ SCH (16:40)
[2022-08-05] MEDS: LORazepam 2 MG/1 ML VIAL IV PRN (18:33)
[2022-08-05] MEDS: KETOROLAC TROMETHAMINE 15 MG/ML VIAL IV ONE (23:40)
[2022-08-06] MEDS: KETOROLAC TROMETHAMINE 15 MG/ML VIAL IV ONE (01:04)
[2022-08-06] MEDS: VANCOMYCIN HCL 1,250 MG in SODIUM CHLORIDE 0.9% 250 ML IV SCH ×2 (01:08→11:48)
[2022-08-06] MEDS: CEFEPIME 2,000 MG in SYRINGE 0 ML IV SCH ×2 (01:08→08:34)
[2022-08-06] MEDS: ACETAMINOPHEN 325 MG TAB PO PRN ×2 (07:44→23:35)
[2022-08-06] MEDS: BUPRENORPHINE/NALOXONE 8/2 MG TAB SL SCH ×3 (08:33→21:27)
[2022-08-06] MEDS: LIDOCAINE 5% 1 PATCH TD SCH (08:34)
[2022-08-06] MEDS: ENOXAPARIN INJ 40 MG/0.4 ML SYR SQ SCH (08:34)
[2022-08-06] MEDS: DOCUSATE SODIUM/SENNA 50/8.6MG TAB PO SCH (08:35)
[2022-08-06] MEDS: SODIUM CHLORIDE 0.9% 1000ML 1,000 ML IV SCH (08:35)
[2022-08-06] MEDS: LORazepam 2 MG/1 ML VIAL IV PRN ×2 (09:41→21:27)
[2022-08-06] MEDS: PROMETHAZINE HCL 12.5 MG in SODIUM CHLORIDE 0.9% 50 ML IV PRN (09:42)
[2022-08-06] MEDS: NICOTINE 14 MG/24 HR PATCH TD SCH (10:28)
[2022-08-06 10:43] LABS: Basophils # (auto) 0.01 K/uL (0-0.2); Basophils % (auto) 0.2 %; Dohle Bodies 1+; Echinocytes 1+; Eosinophils # (auto) 0.05 K/uL (0-0.50); Eosinophils % (auto) 0.8 %; Hematocrit (blood only) 30.1 % (37.0-47.0); Hemoglobin 9.9 g/dl (12.0-16.0); Immature Granulocytes # (auto) 0.03 K/uL (0.01-0.20); Immature Granulocytes % (auto) 0.5 %; Lymphocytes # (auto) 1.21 K/uL (1.2-3.4); Lymphocytes % (auto) 18.8 %; Mean Corpuscular Hemoglobin 29.6 pg (25.0-34.0); Mean Corpuscular Hgb Conc 32.9 g/dL (32.0-36.0); Mean Corpuscular Volume 89.9 fL (80.0-100.0); Mean Platelet Volume 11.2 fL (9.4-12.4); Monocytes # (auto) 0.48 K/uL (0.11-0.59); Monocytes % (auto) 7.5 %; Neutrophils # (auto) 4.65 K/uL (1.40-6.50); Neutrophils % (auto) 72.2 %; Platelet Count 125 K/uL (130-400); RDW Coefficient of Variation 12.9 % (11.5-14.5); RDW Standard Deviation 42.5 fL (36.4-46.3); Red Blood Count 3.35 M/uL (4.20-5.40); White Blood Count 6.43 K/ul (4.8-10.8)
[2022-08-06 12:05] LABS: Albumin Level 2.8 gm/dl (3.4-5.0); BUN Creatinine Ratio 17.3 (10-20); Bilirubin,Total 0.3 mg/dl (0.2-1.0); Calcium 7.9 mg/dl (8.5-10.1); Creatinine Clr Calc Pharmacy 113.5 ml/min; Est GFR (African American) 143.5 ml/min; Est GFR (Non-African American) 123.8 ml/min; Globulin 2.9 gm/dl (2.5-4.0); Potassium 3.4 mmol/L (3.5-5.1); Total Protein 5.7 gm/dl (6.0-8.3)
[2022-08-06] MEDS ORDERED: LORazepam 2 MG/1 ML VIAL IV STA (12:25)
--- NOTE | 2022-08-06 13:15 | Discharge Summary ---
Discharge Summary Date of Service August 06, 2022 Notes For Next Care Provider Medication Changes From Visit Losartan discontinued Coumadin 5mg daily (from 7.5mg //, 5mg other days) Admission HPI Per Admitting Provider History obtained from patient, family, and records. Medical history significant for chronic pain on Suboxone treatment, past history IVDU, anxiety/mood disorder, PTSD, history of seizure-like activity as per records, ongoing tobacco abuse. Last 2011 for status post section. [facility] visit last January 2022 for left lower lobe pneumonia status post Z-Syed Rx at home. Patient not feeling well since last week. Achy back pain with radiation to both legs and weakness. Achy abdominal pain going to the lower chest with constipation. Constipation not responsive to enemas. No shortness of breath, no cough symptoms, no headache symptoms. Patient denies recent IVDU although mother has noticed fresh track bacon on patient's arms. EMS summoned to patient's home. Patient brought to the ER for evaluation. Vancomycin and Zosyn administered at the ER. Medical History as above Surgical History : section, cholecystectomy Family History : Breast cancer, ovarian cancer, DM Personal/Social history : 5 cigarettes a day, no EtOH intake, home nursing care Principal Dx & Hospital Course #1 = Principal Diagnosis (1) Sepsis: Secondary to complicated UTI Rule out spinal infection given lumbar radiculopathy symptoms and history drug abuse Lumbar spine MRI: 1. Abnormal epidural enhancement within the lower lumbar and sacral canals. Mild lumbosacral prevertebral edema and enhancement. This is nonspecific but given the clinical history is suspicious for an infectious process with possible epidural phlegmon. No rim-enhancing fluid collection to suggest abscess. If persistent back pain, short-term follow-up lumbar spine MRI with and without contrast is recommended. 2. No evidence for discitis or osteomyelitis. 3. Central disc protrusion at L5-S1 which results in mild narrowing of the central canal and moderate narrowing of both lateral recesses. 4. 4 cm T1 hyperintense right adnexal lesion. This favors a hemorrhagic ovarian cyst or endometrioma. Blood cultures: Staph aureus species Repeat blood cultures: Pending Urine culture: E. coli, sensitivities pending Transthoracic echocardiogram: No signs of vegetation Positive fever spikes ID consulted-recommend to continue IV vancomycin and cefepime day #2 Ortho consulted-no surgical intervention, continue IV antibiotics, outpatient follow-up with tertiary care facility Drug use patient states she smokes meth UDS: (+) meth, marijuana monitor for withdrawal symptoms As needed Ativan ordered hx chronic pain on Suboxone treatment Constipation possibly from opioid use anxiety/mood disorder/PTSD history of seizure-like activity as per records, patient seen by [facility] Neurology outpatient in 2018 ongoing tobacco abuse Bowel regimen Nicotine patch DVT prophylaxis. Lovenox subcutaneous daily Full code plan of care discussed with patient and her mother at the bedside in detail and at length all questions answered They are understanding, agreeable, comfortable with the plan of care Updated Medication List Medication Instructions Recorded Confirmed Type buprenorphine 8 mg-naloxone 2 mg 1 tab sublingual BID 08/04/22 08/04/22 History sublingual tablet Hospital Stay Data Consultations 08/04/22 03:11 ED Decision to Admit Stat 08/04/22 13:09 Consult Orthopedic Surgery Routine 08/04/22 13:12 Consult Infectious Diseases Routine Diagnostic Imagining Performed 08/04/22 01:11 CT Abd and Pelvis [CT abd pelvis IV con only] Urgent CT angio chest PE protocol Urgent 08/04/22 02:55 MR lumbar spine wo/w con Stat 08/04/22 09:24 CT head/brain wo con Routine
--- NOTE | 2022-08-06 14:14 | Pharmacy Report ---
Pharmacy Vanc AUC Short Note - Date of Service August 06, 2022 - Assessment & Plan Assessment 37 year old F receiving vancomycin and cefepime for UTI/bacteremia, concerns for spinal infection. No evidence of abscess/discitis,osteomyelitis on MRI, however concerns for infectious process. No plans for surgical intervention at this point in time per notes. Prelim blood cultures with MSSA, urine prelim with e coli - resistant to amp / intermediate to unasyn Day #3 of antimicrobial therapy. Plan Vancomycin * AUC/RUSSELL is the preferred PK/PD target for vancomycin * AUC guided dosing is effective and associated with decreased risk of nephrotoxicity compared to traditional trough targets * Scr improving more today, current vancomycin regimen is predicted to achieve AUC/RUSSELL </=400 therefore will increase dose to target higher AUC/RUSSELL 500-600 due to severity of infection/recurrent fevers. Of note, repeat blood culture 1/ with Gm+cocci * Plan to increase to vancomycin 1250 mg iv q 8 hrs. This dosing is predicted to achieve a trough level of ~15 mcg/ml and is associated with 10% risk of toxicity * Will order another vancomycin level tomorrow to assess dosing. Pharmacy will continue to follow and will adjust dose/frequency as necessary. Thank you.
[2022-08-06] MEDS ORDERED: Nursing to Pharmacy Communication SCH (14:15)
[2022-08-06] MEDS ORDERED: D5W AND NSS 1,000 ML IV SCH (14:15)
[2022-08-06] MEDS: POTASSIUM CHLORIDE / WTR 10 MEQ/100 ML PLCT IV SCH ×2 (14:59→15:52)
--- NOTE | 2022-08-06 15:12 | Hospitalist Progress Note ---
Date of Service August 06, 2022 Assessment & Plan (1) Sepsis: (2) Bacteremia: (3) Infection of lumbar spine: (4) UTI (urinary tract infection): Plan: (1) Sepsis: Plan: Secondary to complicated UTI Rule out spinal infection given lumbar radiculopathy symptoms and history drug abuse Lumbar spine MRI: 1. Abnormal epidural enhancement within the lower lumbar and sacral canals. Mild lumbosacral prevertebral edema and enhancement. This is nonspecific but given the clinical history is suspicious for an infectious process with possible epidural phlegmon. No rim-enhancing fluid collection to suggest abscess. If persistent back pain, short-term follow-up lumbar spine MRI with and without contrast is recommended. 2. No evidence for discitis or osteomyelitis. 3. Central disc protrusion at L5-S1 which results in mild narrowing of the central canal and moderate narrowing of both lateral recesses. 4. 4 cm T1 hyperintense right adnexal lesion. This favors a hemorrhagic ovarian cyst or endometrioma. Blood cultures 08/04: MSSA 08/05:pending Urine culture: E. coli, pansensitive Transthoracic echocardiogram: No signs of vegetation Positive fever spikes ID consulted-recommend to transition from IV vancomycin and cefepime day #3 --> Cefazolin 2g IV q8h Day #1 recommend CASIE, Data Base Administrator consulted Ortho Spine consulted-no surgical intervention, continue IV antibiotics, outpatient follow-up with tertiary care facility Drug use, History of IV Drug use patient states she smokes meth last IV meth use 2 months ago as per patient UDS: (+) meth, marijuana monitor for withdrawal symptoms As needed Ativan ordered hx chronic pain on Suboxone treatment Constipation possibly from opioid use anxiety/mood disorder/PTSD history of seizure-like activity as per records, patient seen by [facility] Neurology outpatient in 2018 ongoing tobacco abuse Bowel regimen Nicotine patch DVT prophylaxis. Lovenox subcutaneous daily Full code plan of care discussed with patient and her mother at the bedside in detail and at length all questions answered They are understanding, agreeable, comfortable with the plan of care Admission and Anticipated Discharge Date Admission Date: August 04, 2022 Subjective ff up for sepsis, bacteremia, E. coli UTI, lumbar spine epidural infection, etc. Seen in the morning with BELLE Guevara at the bedside throughout whole encounter Patient drowsy but easily awakened, appears tired States that she feels okay just sleepy, back pain improving No headache, nausea, chest pain, shortness of breath, abdominal pain no leg weakness or numbness no other symptoms Review of Systems Review of Systems: all noted and negative except for above Physical Exam Physical Exam: General- drowsy, oriented x 3, not in distress, speaks in sentences with no effort or accessory muscle use Eyes- anicteric Neck- no JVD Lungs- clear BS bilaterally, no rales/wheezes Heart- normal rate, regular rhythm; no murmurs Abdomen- normal bowel sounds, nondistended, soft, no tenderness Extremities- no pretibial edema, no calf tenderness Neuro- alert, oriented x 3; no gross focal neurologic deficits Skin- warm & dry Results & Data Results & Data ([facility]) Vital Signs (Past 12 Hours) Vital Signs Temp Pulse Pulse Resp BP Pulse Ox O2 Del Method 08/06/22 14:47 100 H 08/06/22 14:00 Room Air 08/06/22 12:09 108 H 88 L Room Air 08/06/22 11:24 37.7 C H 98 H 20 95/51 L 90 Room Air 08/06/22 08:00 Room Air 08/06/22 09:08 37.5 C 08/06/22 08:06 39.1 C H 95 H 12 119/76 95 Room Air 08/06/22 06:55 84 08/06/22 05:33 97 H all noted and reviewed including below (1) Sepsis Sepsis acute organ dysfunction status: unspecified Sepsis type: sepsis due to unspecified organism Qualified Code(s): A41.9 - Sepsis, unspecified organism
[2022-08-06] MEDS: D5NSS + 20MEQ KCL 20 MEQ/1,000 ML BAG IV SCH (15:35)
[2022-08-06] MEDS: ceFAZolin 2000MG 2,000 MG/15 ML SYR IV SCH ×2 (16:24→23:35)
[2022-08-06] MEDS ORDERED: D5NSS + 20MEQ KCL 20 MEQ/1,000 ML BAG IV SCH (16:30)
[2022-08-06] MEDS: KETOROLAC TROMETHAMINE 15 MG/ML VIAL IV PRN (16:47)
--- NOTE | 2022-08-06 16:52 | Cardiology Consultation ---
Date of Consultation August 06, 2022 Assessment & Plan (1) Sepsis: Patient presents with back pain and fevers, recent maximum temperature within the last 24 hours was 39.4 C on 08/05/2022, with MRI of the spine suggestive of a lumbar phlegmon. Sensitive staph aureus noted on blood cultures, E. coli noted in urine. Patient with history of substance abuse, methamphetamine, THC both positive on toxicology screen. Will make patient n.p.o. after midnight for possible CASIE tomorrow. We will need to discuss consent with her mother as I do not feel that the patient is capable of providing consent with her current level of mentation, I will need to have anesthesia assess patient in advance of procedure. History of Present Illness Attending Physician: Nehemiah Marinelli MD History of Present Illness Abigail Vaughn is a 37 year old female seen in cardiology consultation per the request of Dr Marinelli for the evaluation of bacteremia and need for CASIE. Her history is obtained from review of her medical record. Patient is somnolent, and able to answer yes no to questions but not able to elaborate in terms of her history of present illness or how she is feeling at present. The patient has a history of past IV drug use, with concerns of perhaps recent relapse, anxiety, mood disorder, seizure-like activity, and is on chronic Suboxone therapy. She presented to the emergency department on 08/04/2022 with generalized illness with back pain and pain in both of her legs. A CT angiogram performed on arrival was negative. MRI of the lumbar spine revealed abnormal epidural enhancement within the lower lumbar and sacral canals with findings suggestive of possible epidural phlegmon. No evidence of discitis or osteomyelitis. Central disc protrusion noted at L5- S1 with mild narrowing of the central canal and moderate narrowing of both lateral recesses per the radiology report. 2 out of 2 blood cultures performed on 08/04/2022 have yielded staph aureus. The patient has since had a urine culture on 08/04/2022 which yielded E. coli. Repeat blood cultures drawn after day of antibiotics on 08/05/2022 revealed 1/2 bottles positive for gram-positive cocci. Patient is on cefazolin 2000 mg IV every 8 hours. She had been assessed in telemedicine consultation by infectious disease and a CASIE was recommended. At the time my evaluation the patient is somewhat somnolent having been recently treated with lorazepam for anxiety and pain. Allergies Allergy/AdvReac Type Severity Reaction Status Date / Time No Known Allergies Allergy Unverified 08/04/22 01:17 Home Medications Medication Instructions Recorded Confirmed Type buprenorphine 8 mg-naloxone 2 mg 1 tab sublingual BID 08/04/22 08/04/22 History sublingual tablet Patient History Social History Smoking Status: Current every day smoker Tobacco Type: Cigarettes Hx Alcohol Use: No Preferred Language: Cymro Communication Ability: Effective Medical Technologist Hematology Required: No Beliefs That Will Affect Care: None Current Living Situation: Alone Feels Safe at Home: Yes Safety Concerns: Feels Safe At This Time Assistive Devices: None Review of Systems Review of Systems: Unobtainable due to reduced consciousness Physical Exam Constitutional: + ill appearing Respiratory: normal respiratory effort, lungs clear to auscultation Cardiovascular: RRR, no murmur, no edema No signs of peripheral stigmata to suggest endocarditis on her hands or feet Gastrointestinal (Abdomen): normal bowel sounds, soft, nontender, no hepatosplenomegaly Neurologic: Patient moves all 4 extremities on command Results & Data ([facility]) Vital Signs (Past 12 Hours) Vital Signs Temp Pulse Pulse Resp BP Pulse Ox O2 Del Method 08/06/22 15:24 36.6 C 95 H 20 98/68 L 90 Nasal Cannula 08/06/22 14:47 100 H 08/06/22 14:00 Room Air 08/06/22 12:09 108 H 88 L Room Air 08/06/22 11:24 37.7 C H 98 H 20 95/51 L 90 Room Air 08/06/22 08:00 Room Air 08/06/22 09:08 37.5 C 08/06/22 08:06 39.1 C H 95 H 12 119/76 95 Room Air 08/06/22 06:55 84 08/06/22 05:33 97 H Laboratory Results Cardiac Enzymes 08/06/22 Range/Units 09:50 AST 28 (13-39) U/L CBC 08/06/22 Range/Units 09:50 WBC 6.43 (4.8-10.8) K/ul RBC 3.35 L (4.20-5.40) M/uL Hgb 9.9 L (12.0-16.0) g/dl Hct 30.1 L (37.0-47.0) % Plt Count 125 L (130-400) K/uL Neut # (Auto) 4.65 (1.40-6.50) K/uL Lymph # (Auto) 1.21 (1.2-3.4) K/uL [place]cd[place] # (Auto) 0.48 (0.11-0.59) K/uL Eos # (Auto) 0.05 (0-0.50) K/uL Baso # (Auto) 0.01 (0-0.2) K/uL Comprehensive Metabolic Panel 08/06/22 Range/Units 09:50 Sodium 137 (136-145) mmol/L Potassium 3.4 L (3.5-5.1) mmol/L Chloride 112 H (98-107) mmol/L Carbon Dioxide 20 L (21-32) mmol/L BUN 9 (6-23) mg/dl Creatinine 0.52 L (0.6-1.2) mg/dl Glucose 107 H (70-99(Fasting)) mg/dl Calcium 7.9 L (8.5-10.1) mg/dl AST 28 (13-39) U/L ALT 16 (7-52) U/L Alkaline Phosphatase 83 (34-104) U/L Total Protein 5.7 L (6.0-8.3) gm/dl Albumin 2.8 L (3.4-5.0) gm/dl (1) Sepsis Sepsis acute organ dysfunction status: unspecified Sepsis type: sepsis due to unspecified organism Qualified Code(s): A41.9 - Sepsis, unspecified organism
--- NOTE | 2022-08-06 19:01 | Anesthesiology Consultation ---
Date of Service August 06, 2022 Assessment & Plan (1) Encounter for pre-operative examination: Chart Review Chart Review: Acceptable Risk for Surgery (for CASIE) History Height/Weight Height: 4 ft 9 in Weight: 61.1 kg Allergies Allergy/AdvReac Type Severity Reaction Status Date / Time No Known Allergies Allergy Unverified 08/04/22 01:17 Medications Home Medications Medication Instructions Recorded Confirmed Last Taken buprenorphine 8 mg-naloxone 2 mg 1 tab sublingual BID 08/04/22 08/04/22 Unknown sublingual tablet Active Medications Generic Name Dose Route Start Last Admin Trade Name Freq PRN Reason Stop Dose Admin Acetaminophen 650 mg 08/04/22 06:10 08/06/22 07:44 Acetaminophen 325 Mg Tab PO 09/03/22 06:09 650 mg Q4H PRN Administration Pain or Fever Buprenorphine/Naloxone 1 tab 08/04/22 09:00 08/06/22 11:01 Buprenorphine/Naloxone 8/2 Mg Tab SL 09/03/22 08:59 1 tab BID RICKIE Administration Enoxaparin Sodium 40 mg 08/05/22 15:45 08/06/22 08:34 Enoxaparin Inj 40 Mg/0.4 Ml Syr SQ 09/04/22 15:44 40 mg QAM RICKIE Administration Hydroxyzine HCl 10 mg 08/04/22 04:53 08/05/22 06:22 Hydroxyzine Hcl 10 Mg Tab PO 09/03/22 04:52 10 mg QID PRN Administration Anxiety Promethazine HCl 12.5 mg/ 50.5 mls @ 202 mls/hr 08/04/22 04:53 08/06/22 09:57 Sodium Chloride IV 09/03/22 04:52 Infused Q6H PRN Infusion Nausea And Vomiting Potassium Chloride/Dextrose/Sod Cl 20 meq in 1,000 mls @ 60 mls/hr 08/06/22 15:15 08/06/22 15:35 D5nss + 20meq Kcl IV 09/05/22 15:14 60 mls/hr .[id number] RICKIE Administration Protocol Cefazolin Sodium 2,000 mg in 15 mls @ 3.75 mls/min 08/06/22 15:45 08/06/22 16:24 Ancef 2000mg IV 08/20/22 15:44 3.75 mls/min Q8H RICKIE Administration Ketorolac Tromethamine 15 mg 01/29/23 04:53 08/06/22 16:47 Ketorolac Tromethamine 15 Mg/Ml Vial IV 08/09/22 04:52 15 mg Q6H PRN Administration Pain Lidocaine 1 patch 08/04/22 09:30 08/06/22 08:34 Lidocaine 5% 1 Patch TD 09/03/22 09:29 1 patch QAM RICKEI Administration Lorazepam 0.5 mg 08/05/22 08:00 08/06/22 09:41 Lorazepam 2 Mg/1 Ml Vial IV 09/04/22 06:12 0.5 mg Q4H PRN Administration Anxiety/Agitation Miscellaneous 1 each 08/04/22 21:00 08/05/22 20:05 Remove Lidoderm Patch N/A 09/03/22 20:59 1 each DAILY@2100 RICKIE Administration Nicotine 14 mg 08/06/22 09:30 08/06/22 10:28 Nicotine 14 Mg/24 Hr Patch TD 09/05/22 09:29 14 mg QAM RICKIE Administration Senna/Docusate Sodium 1 tab 08/05/22 09:00 08/06/22 08:35 Docusate Sodium/Senna 50/8.6mg Tab PO 09/04/22 08:59 1 tab QAM RICKIE Administration Past Medical History Medical History (Updated 08/06/22 @ 19:05 by Yash Mccoy MD) Acute back pain Bacteremia Drug abuse Infection of lumbar spine Sepsis Past Surgical History Surgical History Hx of section Social History Smoking Status: Current every day smoker Hx Alcohol Use: No Substance Use Type Other:: hx of IV drug abuse Physical Exam Vital Signs Last Vital Signs Temp 36.6 C 08/06/22 15:24 Pulse 95 H 08/06/22 15:24 Resp 20 08/06/22 15:24 BP 98/68 L 08/06/22 15:24 Pulse Ox 92 08/06/22 15:24 O2 Del Method 08/06/22 15:24 O2 Flow Rate 2 08/06/22 15:24 Testing Laboratory Results 08/06/22 09:50 08/06/22 09:50 Urine Color Yellow 08/04/22 03:00 Urine Appearance Cloudy (Clear) A 08/04/22 03:00 Urine pH 7.0 (4.5-7.5) 08/04/22 03:00 Ur Specific [place] 1.019 (1.000-1.030) 08/04/22 03:00 Urine Protein 1+ (Negative) H 08/04/22 03:00 Urine Glucose (UA) Negative (Negative) 08/04/22 03:00 Urine Ketones 2+ (Negative) H 08/04/22 03:00 Urine Nitrite Positive (Negative) A 08/04/22 03:00 Ur Leukocyte Esterase Trace (Negative) H 08/04/22 03:00 Urine WBC (Auto) 5-10 /hpf (0-5) H 08/04/22 03:00 Urine RBC (Auto) 10-30 /hpf (0-4) H 08/04/22 03:00 U Hyaline Cast (Auto) 1-5 /lpf (0-5) 08/04/22 03:00 U Epithel Cells (Auto) >30 /lpf (0-5) H 08/04/22 03:00 Urine Bacteria (Auto) 2+ (Negative) H 08/04/22 03:00 08/05/22 09:59 Aerobic Blood Culture - Preliminary Blood No growth in Aerobic bottle after 24 hours. Anaerobic Blood Culture - Preliminary No growth in Anaerobic bottle after 24 hours. 08/04/22 03:00 Urine Culture - Final Urine,Clean Catch Escherichia coli 08/04/22 02:05 Aerobic Blood Culture - Final Blood Staphylococcus aureus Anaerobic Blood Culture - Final Staphylococcus aureus 08/04/22 01:35 Aerobic Blood Culture - Final Blood Staphylococcus aureus Anaerobic Blood Culture - Final Staphylococcus aureus 08/05/22 05:59 Aerobic Blood Culture - Preliminary Blood Gram positive cocci clusters Anaerobic Blood Culture - Preliminary No growth in Anaerobic bottle after 24 hours. Electrocardiogram Date: 08/04/22 Findings: + ST @ (119) Chest X-Ray Date: 08/04/22 Findings: + NAD Echocardiogram Date: 08/05/22 EF: 60-65% LV Function: normal Valvular Disease: + no significant valvular disease
[2022-08-06] MEDS ORDERED: VANCOMYCIN HCL 1,250 MG in SODIUM CHLORIDE 0.9% 250 ML IV SCH (20:00)
[2022-08-07] MEDS: KETOROLAC TROMETHAMINE 15 MG/ML VIAL IV PRN ×3 (02:22→21:07)
[2022-08-07] MEDS: LORazepam 2 MG/1 ML VIAL IV PRN (03:23)
[2022-08-07] MEDS: D5NSS + 20MEQ KCL 20 MEQ/1,000 ML BAG IV SCH ×2 (06:26→16:04)
[2022-08-07] MEDS: ceFAZolin 2000MG 2,000 MG/15 ML SYR IV SCH ×3 (08:11→23:33)
[2022-08-07] MEDS: ENOXAPARIN INJ 40 MG/0.4 ML SYR SQ SCH (08:12)
[2022-08-07] MEDS: LIDOCAINE 5% 1 PATCH TD SCH (08:12)
[2022-08-07] MEDS: NICOTINE 14 MG/24 HR PATCH TD SCH (08:12)
[2022-08-07] MEDS: DOCUSATE SODIUM/SENNA 50/8.6MG TAB PO SCH (08:14)
[2022-08-07] MEDS: BUPRENORPHINE/NALOXONE 8/2 MG TAB SL SCH ×2 (08:14→21:07)
--- NOTE | 2022-08-07 09:04 | Cardiology Progress Note ---
Date of Service August 07, 2022 Assessment & Plan (1) Sepsis: Plan: Persistent Staph aureus bacteremia (MSSA) on 3/4 blood cultures. Urine culture with E. coli. Transthoracic echocardiogram performed this admission normal. Cardiology was consulted with regards to proceeding with transesophageal echocardiogram for further evaluation of bacteremia/sepsis. Procedure described to patient, and she is agreeable. We will plan on proceeding with procedure when able to schedule in the heart center with anesthesia support. Await patient's morning chemistry panel, with noted hypokalemia observed yesterday. She remains on IV cefazolin under the direction of the hospitalist service and infectious disease service. Informed consent was obtained patient elects to proceed. With the patient's permission, I also spoke to her mother,Joel, by phone, and updated her with regards to the plans for the procedure and she was in agreement. Admission and Anticipated Discharge Date Admission Date: August 04, 2022 Subjective Patient seen in cardiology follow-up this morning. She is much more alert today. Most recent temperature this morning 725 is 37.1, however her Tmax has measured at 2:54 AM was 39.3 C. She is mentating appropriately. Sinus rhythm in the 80s noted on telemetry. Physical Exam Constitutional: + ill appearing Respiratory: normal respiratory effort, lungs clear to auscultation Cardiovascular: RRR, no murmur, no edema Gastrointestinal (Abdomen): normal bowel sounds, soft, nontender, no hepatosplenomegaly Neurologic: PERRL, EOMI, accommodation nl, no face palsy, no dysarthria Genitourinary: Mcintosh catheter in place. Results & Data ([facility]) Vital Signs (Past 12 Hours) Vital Signs Temp Pulse Pulse Resp BP Pulse Ox O2 Del Method 08/07/22 07:25 85 08/07/22 06:13 37.1 C 81 18 90/47 L 95 Nasal Cannula 08/07/22 04:19 37.1 C 08/07/22 02:54 39.3 C H 110 H 18 103/55 L 93 Nasal Cannula 08/06/22 22:00 103 H 08/06/22 23:43 38.4 C H 100 H 16 98/62 L 93 Room Air O2 Flow Rate 08/07/22 07:25 08/07/22 06:13 2 08/07/22 04:19 08/07/22 02:54 2 08/06/22 22:00 08/06/22 23:43 Diagnostic Findings EKG performed 08/04/2022 revealed sinus tachycardia 119 bpm. (1) Sepsis Sepsis acute organ dysfunction status: unspecified Sepsis type: sepsis due to unspecified organism Qualified Code(s): A41.9 - Sepsis, unspecified organism
[2022-08-07 09:11] LABS: Hematocrit (blood only) 24.8 % (37.0-47.0); Hemoglobin 8.2 g/dl (12.0-16.0); Mean Corpuscular Hemoglobin 29.4 pg (25.0-34.0); Mean Corpuscular Hgb Conc 33.1 g/dL (32.0-36.0); Mean Corpuscular Volume 88.9 fL (80.0-100.0); Mean Platelet Volume 10.7 fL (9.4-12.4); Platelet Count 134 K/uL (130-400); RDW Coefficient of Variation 13.1 % (11.5-14.5); RDW Standard Deviation 42.7 fL (36.4-46.3); Red Blood Count 2.79 M/uL (4.20-5.40); White Blood Count 5.74 K/ul (4.8-10.8)
[2022-08-07 09:25] LABS: Basophils # (auto) 0.01 K/uL (0-0.2); Basophils % (auto) 0.2 %; Eosinophils # (auto) 0.11 K/uL (0-0.50); Eosinophils % (auto) 1.9 %; Immature Granulocytes # (auto) 0.03 K/uL (0.01-0.20); Immature Granulocytes % (auto) 0.5 %; Lymphocytes # (auto) 1.73 K/uL (1.2-3.4); Lymphocytes % (auto) 30.1 %; Monocytes # (auto) 0.75 K/uL (0.11-0.59); Monocytes % (auto) 13.1 %; Neutrophils # (auto) 3.11 K/uL (1.40-6.50); Neutrophils % (auto) 54.2 %
[2022-08-07 09:31] LABS: Albumin Globulin Ratio 0.8 (0.9-2); Albumin Level 2.2 gm/dl (3.4-5.0); BUN Creatinine Ratio 12.2 (10-20); Bilirubin,Total 0.3 mg/dl (0.2-1.0); Calcium 7.5 mg/dl (8.5-10.1); Est GFR (African American) 146.3 ml/min; Est GFR (Non-African American) 126.2 ml/min; Globulin 2.6 gm/dl (2.5-4.0); Potassium 3.6 mmol/L (3.5-5.1); Total Protein 4.8 gm/dl (6.0-8.3)
[2022-08-07 10:52] LABS: Amphetamine Urine, Confirm 2582 ng/mL (<250); Marijuana Quant, GCMS Urine 44 ng/mL (<5); Methamphetamine, Ur Confirm 6126 ng/mL (<250)
[2022-08-07] MEDS ORDERED: VANCOMYCIN LEVEL ONE (11:30)
[2022-08-07] MEDS ORDERED: PROPOFOL IV EMULSION 10 MG/ML 20 ML VIAL IV ONE (11:49)
[2022-08-07] MEDS ORDERED: BENZOCAINE/TETRACAIN/BUTAM 50 APPLN/5 GM CAN EXT ONE (12:21)
--- NOTE | 2022-08-07 12:57 | Post Operative Brief Note ---
Cardiology Brief Post Op Date of Surgery August 07, 2022 Pre & Post Diagnosis Operation Date: 08/07/22 13:00 Preprocedure diagnosis: Staph aureus bacteremia, assess for endocarditis Post procedure diagnosis: Tricuspid valve endocarditis Procedure Transesophageal echocardiogram: After informed consent was obtained and a timeout was performed the patient was sedated with the assistance of the anesthesia service receiving a total of 250 mg of IV propofol. The mitral, aortic, and pulmonic valves were well visualized with no evidence of vegetation or significant regurgitation. There is a subtle, small, mobile echodensity on the right atrial aspect of the tricuspid valve. Given the clinical context of patient's history of IV drug use, and Staph aureus bacteremia, this is compatible with being a small vegetation. There is no significant tricuspid regurgitation. There is suggestion of a left pleural effusion. Sales And Marketing Executive Nelson Chapin DO Mattress Specialist Tawana Mcgee, [facility] Estimated Blood Loss 0 Findings Consistent with Post-Op Diagnosis
--- NOTE | 2022-08-07 12:57 | Anesthesiology Progress Note ---
Date of Service August 07, 2022 Anesthesia Post Procedure Vital Signs Vital Signs: Temp Pulse Pulse Resp BP Pulse Ox O2 Del Method 08/07/22 12:49 95 H 16 103/65 98 Room Air 08/07/22 12:09 100 H 16 113/72 98 Room Air 08/07/22 11:16 37.4 C 93 H 20 97/62 L 93 Room Air 08/07/22 07:25 85 08/07/22 06:13 37.1 C 81 18 90/47 L 95 Nasal Cannula 08/07/22 04:19 37.1 C 08/07/22 02:54 39.3 C H 110 H 18 103/55 L 93 Nasal Cannula 08/06/22 22:00 103 H 08/06/22 23:43 38.4 C H 100 H 16 98/62 L 93 Room Air 08/06/22 19:57 37.2 C 89 20 104/67 95 Nasal Cannula 08/06/22 15:24 36.6 C 95 H 20 98/68 L 92 Nasal Cannula 08/06/22 14:47 100 H 08/06/22 14:00 Room Air O2 Flow Rate 08/07/22 12:49 08/07/22 12:09 08/07/22 11:16 08/07/22 07:25 08/07/22 06:13 2 08/07/22 04:19 08/07/22 02:54 2 08/06/22 22:00 08/06/22 23:43 08/06/22 19:57 2 08/06/22 15:24 2 08/06/22 14:47 08/06/22 14:00 Pain Intensity Back: Pain Intensity: 4 Transfer of Care Handoff Completed per policy Notes Mental Status: alert / awake / arousable and participated in evaluation Patient Amnestic to Procedure: Yes Nausea / Vomiting: adequately controlled Pain: adequately controlled Airway Patency, RR, SpO2: stable & adequate BP & HR: stable & adequate Hydration State: stable & adequate Anesthetic Complications: no major complications apparent and Pt Satisfied with anesthetic care
[2022-08-07] MEDS: ACETAMINOPHEN 325 MG TAB PO PRN (13:31)
--- NOTE | 2022-08-07 16:44 | Hospitalist Progress Note ---
Date of Service August 07, 2022 Assessment & Plan (1) Sepsis: (2) Bacteremia: (3) Infection of lumbar spine: (4) UTI (urinary tract infection): Plan: (1) Sepsis: Plan: Secondary to complicated UTI Urine culture grew E. coli which is pansensitive Has been on cefazolin and will continue Complicated by MSSA bacteremia Lumbar epidural phlegmon without any evidence of osteomyelitis Lumbar spine MRI: 1. Abnormal epidural enhancement within the lower lumbar and sacral canals. Mild lumbosacral prevertebral edema and enhancement. This is nonspecific but given the clinical history is suspicious for an infectious process with possible epidural phlegmon. No rim-enhancing fluid collection to suggest abscess. If persistent back pain, short-term follow-up lumbar spine MRI with and without contrast is recommended. 2. No evidence for discitis or osteomyelitis. 3. Central disc protrusion at L5-S1 which results in mild narrowing of the central canal and moderate narrowing of both lateral recesses. 4. 4 cm T1 hyperintense right adnexal lesion. This favors a hemorrhagic ovarian cyst or endometrioma. Appreciate orthospine input and recommendation MSSA bacteremia:Blood cultures 08/04: MSSA 08/05:pending Drug use, History of IV Drug use patient states she smokes meth last IV meth use 2 months ago as per patient UDS: (+) meth, marijuana monitor for withdrawal symptoms As needed Ativan ordered Transthoracic echocardiogram: No signs of vegetation Status post transesophageal echocardiogram showing small vegetation and tricuspid valve which does not require CT surgery input Appreciate cardiology input and recommendation Discussed with the ID specialist-we will need to continue IV cefazolin for 6 weeks hx chronic pain on Suboxone treatment Constipation possibly from opioid use anxiety/mood disorder/PTSD history of seizure-like activity as per records, patient seen by [facility] outpatient in 2018 ongoing tobacco abuse Nicotine patch DVT prophylaxis. Lovenox subcutaneous daily Full code Admission and Anticipated Discharge Date Admission Date: August 04, 2022 Subjective 08/07/2022 The patient was seen and examined in medical telemetry unit She has been very weak and lethargic but denies any significant symptoms Still having fever No chest pain, shortness of breath or palpitation. No abdominal pain, nausea and or vomiting Review of Systems Review of Systems: All systems reviewed and are unremarkable except as noted below Musculoskeletal: No acute arthritis involving any joint Neurologic: Generally weak and lethargic Physical Exam Physical Exam: Lying in bed comfortably Constitutional: well developed, well nourished, + ill appearing and average body habitus Eyes: PERRL, conjunctivae normal, anicteric sclerae ENMT: external ear and nose normal, oropharynx normal Neck: trachea midline, no thyromegaly Respiratory: no respiratory distress Auscultation: + diminished lung sounds and + crackles (Minimal crackles bilaterally) Cardiovascular: Rate/Rhythm: regular rate, regular rhythm and + tachycardic Heart Sounds: normal S1 and normal S2; no murmur Extremities: + edema (Trace edema bilaterally) Gastrointestinal (Abdomen): Inspection/Auscultation: normal bowel sounds; abdomen not distended Percussion/Palpation: abdomen soft; abdomen nontender Musculoskeletal: No acute arthritis involving any joint Neurologic: Alert, awake and oriented x3. Generally weak and lethargic but no focal sensory or no motor deficit appreciated Lymphatic: no cervical or axillary lymphadenopathy Results & Data Results & Data ([facility]) Vital Signs (Past 12 Hours) Vital Signs Temp Pulse Pulse Resp BP Pulse Ox O2 Del Method 08/07/22 15:01 37.5 C 102 H 18 99/58 L 90 Room Air 08/07/22 13:43 95 H 08/07/22 13:04 104 H 14 122/69 99 Room Air 08/07/22 12:49 95 H 16 103/65 98 Room Air 08/07/22 12:09 100 H 16 113/72 98 Room Air 08/07/22 11:16 37.4 C 93 H 20 97/62 L 93 Room Air 08/07/22 07:25 85 08/07/22 06:13 37.1 C 81 18 90/47 L 95 Nasal Cannula O2 Flow Rate 08/07/22 15:01 08/07/22 13:43 08/07/22 13:04 08/07/22 12:49 08/07/22 12:09 08/07/22 11:16 08/07/22 07:25 08/07/22 06:13 2 Laboratory Results Short CBC 08/07/22 Range/Units 08:08 WBC 5.74 (4.8-10.8) K/ul Hgb 8.2 L (12.0-16.0) g/dl Hct 24.8 L (37.0-47.0) % Plt Count 134 (130-400) K/uL BMP 08/07/22 08:08 Sodium 138 Potassium 3.6 Chloride 113 H Carbon Dioxide 22 BUN 6 Creatinine 0.49 L Glucose 117 H Calcium 7.5 L Liver Function 08/07/22 Range/Units 08:08 Total Bilirubin 0.3 (0.2-1.0) mg/dl AST 12 L (13-39) U/L ALT 10 (7-52) U/L Alkaline Phosphatase 77 (34-104) U/L Albumin 2.2 L (3.4-5.0) gm/dl Medications Administered Current Inpatient Medications Acetaminophen (Acetaminophen 325 Mg Tab) 650 mg PO Q4H PRN PRN Reason: Pain or Fever Stop: 09/03/22 06:09 Last Admin: 08/07/22 13:31 Dose: 650 mg Buprenorphine/Naloxone (Buprenorphine/Naloxone 8/2 Mg Tab) 1 tab SL BID [facility] Stop: 09/03/22 08:59 Last Admin: 08/07/22 08:14 Dose: 1 tab Enoxaparin Sodium (Enoxaparin Inj 40 Mg/0.4 Ml Syr) 40 mg SQ QAM [facility] Stop: 09/04/22 15:44 Last Admin: 08/07/22 08:12 Dose: 40 mg Hydroxyzine HCl (Hydroxyzine Hcl 10 Mg Tab) 10 mg PO QID PRN PRN Reason: Anxiety Stop: 09/03/22 04:52 Last Admin: 08/05/22 06:22 Dose: 10 mg Promethazine HCl 12.5 mg/ (Sodium Chloride) 50.5 mls @ 202 mls/hr IV Q6H PRN PRN Reason: Nausea And Vomiting Stop: 09/03/22 04:52 Last Infusion: 08/06/22 09:57 Dose: Infused Potassium Chloride/Dextrose/Sod Cl (D5nss + 20meq Kcl) 20 meq in 1,000 mls @ 100 mls/hr IV .Q10H [facility]; Protocol Stop: 09/05/22 15:14 Last Admin: 08/07/22 16:04 Dose: 100 mls/hr Cefazolin Sodium (Ancef 2000mg) 2,000 mg in 15 mls @ 3.75 mls/min IV Q8H [facility] Stop: 08/20/22 15:44 Last Admin: 08/07/22 16:04 Dose: 3.75 mls/min Ketorolac Tromethamine (Ketorolac Tromethamine 15 Mg/Ml Vial) 15 mg IV Q6H PRN PRN Reason: Pain Stop: 08/09/22 04:52 Last Admin: 08/07/22 14:11 Dose: 15 mg Lidocaine (Lidocaine 5% 1 Patch) 1 patch TD QAM [facility] Stop: 09/03/22 09:29 Last Admin: 08/07/22 08:12 Dose: 1 patch Lorazepam (Lorazepam 2 Mg/1 Ml Vial) 0.5 mg IV Q4H PRN PRN Reason: Anxiety/Agitation Stop: 09/04/22 06:12 Last Admin: 08/07/22 03:23 Dose: 0.5 mg Miscellaneous (Remove Lidoderm Patch) 1 each N/A DAILY@2100 [facility] Stop: 09/03/22 20:59 Last Admin: 08/06/22 21:27 Dose: 1 each Miscellaneous (Remove Nicoderm Patch) 1 each N/A DAILY@0859 [facility] Stop: 09/06/22 08:58 Last Admin: 08/07/22 08:11 Dose: 1 each Nicotine (Nicotine 14 Mg/24 Hr Patch) 14 mg TD QAM [facility] Stop: 09/05/22 09:29 Last Admin: 08/07/22 08:12 Dose: 14 mg Senna/Docusate Sodium (Docusate Sodium/Senna 50/8.6mg Tab) 1 tab PO QAM [facility] Stop: 09/04/22 08:59 Last Admin: 08/07/22 08:14 Dose: 1 tab (1) Sepsis Sepsis acute organ dysfunction status: unspecified Sepsis type: sepsis due to unspecified organism Qualified Code(s): A41.9 - Sepsis, unspecified organism
--- NOTE | 2022-08-07 18:40 | Communication Note ---
Date of Service: August 07, 2022 I called and updated the patient's mother with regards to the echocardiogram findings.
[2022-08-08] MEDS: LORazepam 2 MG/1 ML VIAL IV PRN (00:22)
[2022-08-08] MEDS: D5NSS + 20MEQ KCL 20 MEQ/1,000 ML BAG IV SCH (02:14)
[2022-08-08] MEDS: ACETAMINOPHEN 325 MG TAB PO PRN (03:09)
[2022-08-08] MEDS ORDERED: GABAPENTIN 100 MG CAP PO STA (03:21)
[2022-08-08] MEDS ORDERED: OPTIRAY 350 100ml IV ONE (04:27)
[2022-08-08] MEDS: KETOROLAC TROMETHAMINE 15 MG/ML VIAL IV PRN ×2 (06:30→22:30)
--- NOTE | 2022-08-08 07:42 | CT Scan Report ---
ABDOMEN AND PELVIS CT WITH IV CONTRAST CT DOSE: 317.67 mGy.cm HISTORY: abdominal distension and pain TECHNIQUE: Multiaxial CT images of the abdomen and pelvis were performed following the use of intrave nous contrast. A dose lowering technique was utilized adhering to the principles of ALARA. COMPARISON STUDY: Abdomen and pelvis CT 08/04/2022. FINDINGS: Interval development of small to moderate bilateral pleural effusions with bilateral lower lobe consolidation. This favors compressive atelectasis from the pleural effusion. A pneumonia could also have a similar appearance. There is interlobular septal thickening at the lung bases consistent with pulmonary edema. No pneumoperitoneum. No pneumatosis. No acute fractures identified. Mild peripo rtal edema. There is moderate body wall edema. Small amount of ascites is noted. The bladder is decom pressed by Mcintosh catheter. There is gas within the bladder lumen. The uterus and left ovary are unrem arkable. There is a 3.4 cm right ovarian cyst which favors a hemorrhagic cyst. Moderate stool within the colon. No bowel wall thickening or obstruction. Cholecystectomy. The spleen, adrenal glands, panc reas, and kidneys are unremarkable. No hydronephrosis. No retroperitoneal lymphadenopathy. Normal [place] iber abdominal aorta. The main portal vein is patent. IMPRESSION: 1. Interval development of mild pulmonary edema and small to moderate bilateral pleural effusions. 2. Bilateral lower lobe consolidation favors compressive atelectasis from the pleural effusions. A pn eumonia could also have a similar appearance. 3. Moderate body wall edema and a small amount of ascites. 4. A 3.4 cm right adnexal cyst, unchanged. This favors a hemorrhagic cyst. 5. No bowel wall thickening or obstruction. ACT 112: Negative or not required by law. Electronically signed by: Jose Gautam M.D. 08/08/2022 7:40 AM
[2022-08-08 07:57] LABS: Basophils # (auto) 0.01 K/uL (0-0.2); Basophils % (auto) 0.1 %; Eosinophils # (auto) 0.08 K/uL (0-0.50); Eosinophils % (auto) 1.2 %; Hematocrit (blood only) 24.6 % (37.0-47.0); Hemoglobin 8.4 g/dl (12.0-16.0); Immature Granulocytes # (auto) 0.06 K/uL (0.01-0.20); Immature Granulocytes % (auto) 0.9 %; Lymphocytes % (auto) 20.5 %; Mean Corpuscular Hemoglobin 29.9 pg (25.0-34.0); Mean Corpuscular Hgb Conc 34.1 g/dL (32.0-36.0); Mean Corpuscular Volume 87.5 fL (80.0-100.0); Mean Platelet Volume 10.7 fL (9.4-12.4); Monocytes # (auto) 0.59 K/uL (0.11-0.59); Monocytes % (auto) 8.7 %; Neutrophils # (auto) 4.68 K/uL (1.40-6.50); Neutrophils % (auto) 68.6 %; Platelet Count 156 K/uL (130-400); RDW Coefficient of Variation 13.1 % (11.5-14.5); RDW Standard Deviation 41.9 fL (36.4-46.3); Red Blood Count 2.81 M/uL (4.20-5.40); White Blood Count 6.82 K/ul (4.8-10.8)
[2022-08-08] MEDS: BUPRENORPHINE/NALOXONE 8/2 MG TAB SL SCH (08:03)
[2022-08-08] MEDS: ENOXAPARIN INJ 40 MG/0.4 ML SYR SQ SCH (08:03)
[2022-08-08] MEDS: NICOTINE 14 MG/24 HR PATCH TD SCH (08:03)
[2022-08-08] MEDS: ceFAZolin 2000MG 2,000 MG/15 ML SYR IV SCH ×2 (08:03→15:25)
[2022-08-08] MEDS: LIDOCAINE 5% 1 PATCH TD SCH (08:04)
[2022-08-08] MEDS: DOCUSATE SODIUM/SENNA 50/8.6MG TAB PO SCH (08:05)
[2022-08-08] MEDS ORDERED: GADOBUTROL 7.5ML VIAL IV ONE (09:16)
[2022-08-08 11:47] LABS: Anion Gap 4 (3-11); BUN Creatinine Ratio 9.3 (10-20); Blood Urea Nitrogen 4 mg/dl (6-23); Calcium 7.7 mg/dl (8.5-10.1); Carbon Dioxide 22 mmol/L (21-32); Chloride 111 mmol/L (98-107); Creatinine Clr Calc Pharmacy 137.4 ml/min; Est GFR (African American) > 150.0 ml/min; Est GFR (Non-African American) 131.8 ml/min; Glucose 107 mg/dl (70-99(Fasting)); Potassium 3.8 mmol/L (3.5-5.1); Sodium 137 mmol/L (136-145)
[2022-08-08] MEDS ORDERED: SOD PHOSPHATE/SOD BIPHOSPHATE ENEMA 132 ML BTL PR ONE (14:16)
[2022-08-08] MEDS ORDERED: SOD PHOSPHATE/SOD BIPHOSPHATE ENEMA 132 ML BTL PR STA (14:31)
[2022-08-08] MEDS ORDERED: LORazepam 2 MG/1 ML VIAL IV STA (15:13)
[2022-08-08] MEDS ORDERED: LACTULOSE 200GM/700ML WTR ENEMA PR ONE (15:30)
--- NOTE | 2022-08-08 16:45 | Hospitalist Progress Note ---
Date of Service August 08, 2022 Assessment & Plan (1) Sepsis: (2) Bacteremia: (3) Infection of lumbar spine: (4) UTI (urinary tract infection): Plan: (1) Sepsis: Plan: Secondary to complicated UTI Urine culture grew E. coli which is pansensitive Has been on cefazolin and will continue Complicated by MSSA bacteremia Lumbar epidural phlegmon without any evidence of osteomyelitis Lumbar spine MRI: 1. Abnormal epidural enhancement within the lower lumbar and sacral canals. Mild lumbosacral prevertebral edema and enhancement. This is nonspecific but given the clinical history is suspicious for an infectious process with possible epidural phlegmon. No rim-enhancing fluid collection to suggest abscess. If persistent back pain, short-term follow-up lumbar spine MRI with and without contrast is recommended. 2. No evidence for discitis or osteomyelitis. 3. Central disc protrusion at L5-S1 which results in mild narrowing of the central canal and moderate narrowing of both lateral recesses. 4. 4 cm T1 hyperintense right adnexal lesion. This favors a hemorrhagic ovarian cyst or endometrioma. Appreciate orthospine input and recommendation Constipation Has not had bowel movements 41 Complaints of abdominal discomfort and pain this afternoon With significant anxiety CT scan did not show any obstruction last night KUB will be done to rule out any SBO Will be given lactulose enema-the patient reassured MSSA bacteremia:Blood cultures 08/04: MSSA 08/05:pending Drug use, History of IV Drug use patient states she smokes meth last IV meth use 2 months ago as per patient UDS: (+) meth, marijuana monitor for withdrawal symptoms As needed Ativan ordered Transthoracic echocardiogram: No signs of vegetation Status post transesophageal echocardiogram showing small vegetation and tricu spid valve which does not require CT surgery input Appreciate cardiology input and recommendation Discussed with the ID specialist-we will need to continue IV cefazolin for 6 weeks hx chronic pain on Suboxone treatment Constipation possibly from opioid use anxiety/mood disorder/PTSD history of seizure-like activity as per records, patient seen by [facility] Neurology outpatient in 2018 ongoing tobacco abuse Nicotine patch DVT prophylaxis. Lovenox subcutaneous daily Full code Admission and Anticipated Discharge Date Admission Date: August 04, 2022 Subjective 08/07/2022 The patient was seen and examined in medical telemetry unit She has been very weak and lethargic but denies any significant symptoms Still having fever No chest pain, shortness of breath or palpitation. No abdominal pain, nausea and or vomiting Review of Systems Review of Systems: All systems reviewed and are unremarkable except as noted below Musculoskeletal: No acute arthritis involving any joint Neurologic: Generally weak and lethargic Physical Exam Physical Exam: Lying in bed comfortably Constitutional: well developed, well nourished, + ill appearing and average body habitus Eyes: PERRL, conjunctivae normal, anicteric sclerae ENMT: external ear and nose normal, oropharynx normal Neck: trachea midline, no thyromegaly Respiratory: no respiratory distress Auscultation: + diminished lung sounds and + crackles (Minimal crackles bilaterally) Cardiovascular: Rate/Rhythm: regular rate, regular rhythm and + tachycardic Heart Sounds: normal S1 and normal S2; no murmur Extremities: + edema (Trace edema bilaterally) Gastrointestinal (Abdomen): Inspection/Auscultation: normal bowel sounds; abdomen not distended Percussion/Palpation: abdomen soft; abdomen nontender Lymphatic: no cervical or axillary lymphadenopathy Results & Data Results & Data ([facility]) Vital Signs (Past 12 Hours) Vital Signs Temp Pulse Pulse Resp BP Pulse Ox O2 Del Method 08/08/22 12:00 37.4 C 75 18 98/63 L 97 Nasal Cannula 08/08/22 07:37 37.9 C H 92 H 18 107/66 92 Nasal Cannula 08/08/22 07:23 96 H 08/08/22 06:27 16 08/08/22 06:26 38.9 C H 96 H 92 Nasal Cannula 08/08/22 05:03 39.4 C H 113 H 26 H 117/74 96 Room Air O2 Flow Rate 08/08/22 12:00 4 08/08/22 07:37 4 08/08/22 07:23 08/08/22 06:27 08/08/22 06:26 4 08/08/22 05:03 2 (1) Sepsis Sepsis acute organ dysfunction status: unspecified Sepsis type: sepsis due to unspecified organism Qualified Code(s): A41.9 - Sepsis, unspecified organism
--- NOTE | 2022-08-08 16:54 | XRay Report ---
KUB HISTORY: Acute generalized abdominal pain SBO COMPARISON: CT of same day FINDINGS: Nonobstructive bowel gas pattern. Moderate colonic fecal retention. Air-filled loops of lar ge and small bowel. Cholecystectomy. Pulmonary edema with small pleural effusions. Bibasilar pulmonar y opacities are again noted. No renal calculi. No ureteral calculi. No pneumoperitoneum or pneumatos is. No fracture. IMPRESSION: 1. Moderate colonic fecal retention with nonobstructive bowel gas pattern. 2. Intermixed interstitial and alveolar opacities redemonstrated. 3. Cholecystectomy. ACT 112: Negative or not required by law. The above report was generated using voice recognition software. It may contain grammatical, syntax o r spelling errors. Electronically signed by: Federico Landaverde M.D. 08/08/2022 4:52 PM
--- NOTE | 2022-08-08 18:09 | Cardiology Progress Note ---
Date of Service August 08, 2022 Assessment & Plan (1) Sepsis: (2) Bacteremia: (3) Infective endocarditis of tricuspid valve: Plan - Transesophageal echocardiogram with findings of very subtle mobile strand-like echodensity on the right atrial aspect of the septal leaflet of the tricuspid valve on CASIE performed 08/07/2022. -Patient with methicillin sensitive Staph aureus bacteremia, E. coli UTI. -History compatible with IV drug use and ongoing substance abuse. -Patient received significant IV fluids, and now has body volume overloaded. -IV fluids discontinued. Supplemental potassium ordered with thoughts that patient would likely benefit from the addition of IV furosemide perhaps 10 mg twice daily to start tomorrow. Will confer with Dr. Barraza. Will need to proceed with caution given SBP in the 90s to low 100s. -Continue IV cefazolin, day 3. Will likely need 6 weeks of IV antibiotics. -the vegetation is right sided and small with only trace TR. No indiction for cardiac surgery at present. -Continue lovenox for DVT prophylaxis . Admission and Anticipated Discharge Date Admission Date: August 04, 2022 Subjective Patient seen in cardiology follow-up. She is somnolent, but answers questions. Boyfriend at the bedside. Telemetry reveals sinus rhythm and sinus tachycardia ranging from 90 bpm to 110 bpm. Physical Exam Constitutional: + ill appearing Respiratory: normal respiratory effort, lungs clear to auscultation Cardiovascular: RRR, no murmur, no edema Gastrointestinal (Abdomen): normal bowel sounds, soft, nontender, no hepatosplenomegaly Neurologic: PERRL, EOMI, accommodation nl, no face palsy, no dysarthria Results & Data ([facility]) Vital Signs (Past 12 Hours) Vital Signs Temp Pulse Pulse Resp BP Pulse Ox O2 Del Method 08/08/22 16:00 108 H 08/08/22 12:00 37.4 C 75 18 98/63 L 97 Nasal Cannula 08/08/22 07:37 37.9 C H 92 H 18 107/66 92 Nasal Cannula 08/08/22 07:23 96 H 08/08/22 06:27 16 08/08/22 06:26 38.9 C H 96 H 92 Nasal Cannula O2 Flow Rate 08/08/22 16:00 08/08/22 12:00 4 08/08/22 07:37 4 08/08/22 07:23 08/08/22 06:27 08/08/22 06:26 4 Laboratory Results CBC 08/08/22 Range/Units 07:38 WBC 6.82 (4.8-10.8) K/ul RBC 2.81 L (4.20-5.40) M/uL Hgb 8.4 L (12.0-16.0) g/dl Hct 24.6 L (37.0-47.0) % Plt Count 156 (130-400) K/uL Neut # (Auto) 4.68 (1.40-6.50) K/uL Lymph # (Auto) 1.40 (1.2-3.4) K/uL [place] # (Auto) 0.59 (0.11-0.59) K/uL Eos # (Auto) 0.08 (0-0.50) K/uL Baso # (Auto) 0.01 (0-0.2) K/uL Comprehensive Metabolic Panel 08/08/22 Range/Units 07:38 Sodium 137 (136-145) mmol/L Potassium 3.8 (3.5-5.1) mmol/L Chloride 111 H (98-107) mmol/L Carbon Dioxide 22 (21-32) mmol/L BUN 4 L (6-23) mg/dl Creatinine 0.43 L (0.6-1.2) mg/dl Glucose 107 H (70-99(Fasting)) mg/dl Calcium 7.7 L (8.5-10.1) mg/dl Intake and Output 08/08/22 08/08/22 08/08/22 06:59 14:59 22:59 Intake Total 1648.333 / 2791.666 120 / 120 0 / 120 Output Total 500 / 1250 675 / 675 Balance 1148.333 / 1541.666 -555 / -555 0 / -555 Intake: IV 1408.333 / 2371.666 0 / 0 D5nss + 20Meq KCl 20 meq In 1, 1408.333 / 2371.666 0 / 0 000 ml @ 100 mls/hr IV .Q10H [facility] Rx#:[id number] Oral 240 / 420 120 / 120 Output: Urine Amount (Catheter) 500 / 1250 675 / 675 Mcintosh/Indwelling 500 / 1250 675 / 675 Other: Weight 61.3 kg 61.3 kg Weight Measurement Method Built in [facility] Patient Weight 08/09/22 06:59 Weight 61.[address] of the abdomen pelvis performed today due to complaint of abdominal distention and pain 1. Interval development of mild pulmonary edema and small to moderate bilateral pleural effusions. 2. Bilateral lower lobe consolidation favors compressive atelectasis from the pleural effusions. A pneumonia could also have a similar appearance. 3. Moderate body wall edema and a small amount of ascites. 4. A 3.4 cm right adnexal cyst, unchanged. This favors a hemorrhagic cyst. 5. No bowel wall thickening or obstruction. (1) Sepsis Sepsis acute organ dysfunction status: unspecified Sepsis type: sepsis due to unspecified organism Qualified Code(s): A41.9 - Sepsis, unspecified organism
[2022-08-08] MEDS: ACETAMINOPHEN 1,000 MG/100 ML VIAL IV PRN (19:27)
[2022-08-08] MEDS: POTASSIUM CHLORIDE 10 MEQ TABCR PO SCH (22:30)
[2022-08-09] MEDS: ceFAZolin 2000MG 2,000 MG/15 ML SYR IV SCH ×4 (00:04→23:19)
[2022-08-09 00:58] LABS: Amphetamines+Metham, Urine Neg (Neg); Barbiturates, Urine Neg (Neg); Benzodiazepine, Urine Neg (Neg); Cocaine, Urine Neg (Neg); MDMA (Ecstacy), Urine Neg (Neg); Methadone, Urine Neg (Neg); Opiate, Urine Neg (Neg); Phencyclidine, Urine Neg (Neg)
[2022-08-09] MEDS: BUPRENORPHINE/NALOXONE 8/2 MG TAB SL SCH ×3 (04:54→20:35)
[2022-08-09 06:20] LABS: Basophils # (auto) 0.01 K/uL (0-0.2); Basophils % (auto) 0.1 %; Eosinophils # (auto) 0.05 K/uL (0-0.50); Eosinophils % (auto) 0.6 %; Hematocrit (blood only) 24.3 % (37.0-47.0); Hemoglobin 8.3 g/dl (12.0-16.0); Immature Granulocytes # (auto) 0.06 K/uL (0.01-0.20); Immature Granulocytes % (auto) 0.7 %; Lymphocytes # (auto) 0.99 K/uL (1.2-3.4); Lymphocytes % (auto) 11.5 %; Mean Corpuscular Hemoglobin 29.6 pg (25.0-34.0); Mean Corpuscular Hgb Conc 34.2 g/dL (32.0-36.0); Mean Corpuscular Volume 86.8 fL (80.0-100.0); Mean Platelet Volume 10.3 fL (9.4-12.4); Monocytes # (auto) 0.43 K/uL (0.11-0.59); Neutrophils # (auto) 7.05 K/uL (1.40-6.50); Neutrophils % (auto) 82.1 %; Platelet Count 205 K/uL (130-400); RDW Coefficient of Variation 13.3 % (11.5-14.5); RDW Standard Deviation 42.5 fL (36.4-46.3); White Blood Count 8.59 K/ul (4.8-10.8)
[2022-08-09 06:32] LABS: Albumin Globulin Ratio 0.8 (0.9-2); Albumin Level 2.4 gm/dl (3.4-5.0); BUN Creatinine Ratio 9.6 (10-20); Bilirubin,Total 0.3 mg/dl (0.2-1.0); Creatinine Clr Calc Pharmacy 115.6 ml/min; Est GFR (African American) 143.5 ml/min; Est GFR (Non-African American) 123.8 ml/min; Globulin 2.9 gm/dl (2.5-4.0); Potassium 3.8 mmol/L (3.5-5.1); Total Protein 5.3 gm/dl (6.0-8.3)
[2022-08-09] MEDS ORDERED: POTASSIUM CHLORIDE CRTAB 20 MEQ TABCR PO STA (07:48)
[2022-08-09] MEDS ORDERED: FUROSEMIDE INJ 20 MG/2 ML VIAL IV ONE (08:00)
[2022-08-09] MEDS: LIDOCAINE 5% 1 PATCH TD SCH (08:04)
[2022-08-09] MEDS: DOCUSATE SODIUM/SENNA 50/8.6MG TAB PO SCH (08:13)
[2022-08-09] MEDS: ACETAMINOPHEN 325 MG TAB PO PRN ×2 (08:13→23:19)
[2022-08-09] MEDS: ENOXAPARIN INJ 40 MG/0.4 ML SYR SQ SCH (08:14)
[2022-08-09] MEDS: POTASSIUM CHLORIDE 10 MEQ TABCR PO SCH ×2 (08:14→20:35)
[2022-08-09] MEDS: NICOTINE 14 MG/24 HR PATCH TD SCH (08:14)
[2022-08-09] MEDS: PROMETHAZINE HCL 12.5 MG in SODIUM CHLORIDE 0.9% 50 ML IV PRN (08:41)
--- NOTE | 2022-08-09 14:10 | XRay Report ---
XR chest 2V PA/lateral HISTORY: 37 years-old Female Pneumonia acute shortness of breath COMPARISON: CT abdomen and pelvis August 08, 2022 TECHNIQUE: PA and lateral views of the chest FINDINGS: Cardiac silhouette is normal in size. Pulmonary edema without pneumothorax. Small pleural effusions w ith mild bibasilar consolidation again noted. Bones appear grossly intact. Mild gaseous distention of the splenic flexure. Cholecystectomy. IMPRESSION: 1. Pulmonary edema. 2. Small pleural effusions with bibasilar consolidation redemonstrated suggestive of atelectasis. Pne umonia could appear similarly however is considered less likely. ACT 112: Negative or not required by law. The above report was generated using voice recognition software. It may contain grammatical, syntax o r spelling errors. Electronically signed by: Federico Landaverde M.D. 08/09/2022 2:08 PM
--- NOTE | 2022-08-09 15:26 | Hospitalist Progress Note ---
Date of Service August 09, 2022 Assessment & Plan (1) Sepsis: (2) Bacteremia: (3) Infection of lumbar spine: (4) UTI (urinary tract infection): Plan: (1) Sepsis: Plan: Secondary to complicated UTI Urine culture grew E. coli which is pansensitive Has been on cefazolin and will continue Complicated by MSSA bacteremia Lumbar epidural phlegmon without any evidence of osteomyelitis Lumbar spine MRI: 1. Abnormal epidural enhancement within the lower lumbar and sacral canals. Mild lumbosacral prevertebral edema and enhancement. This is nonspecific but given the clinical history is suspicious for an infectious process with possible epidural phlegmon. No rim-enhancing fluid collection to suggest abscess. If persistent back pain, short-term follow-up lumbar spine MRI with and without contrast is recommended. 2. No evidence for discitis or osteomyelitis. 3. Central disc protrusion at L5-S1 which results in mild narrowing of the central canal and moderate narrowing of both lateral recesses. 4. 4 cm T1 hyperintense right adnexal lesion. This favors a hemorrhagic ovarian cyst or endometrioma. Appreciate orthospine input and recommendation No spinal tenderness and no signs of radiculopathy pain Constipation Has not had bowel movements 41 Complaints of abdominal discomfort and pain this afternoon With significant anxiety CT scan did not show any obstruction last night KUB did not show an obstruction And following lactulose enema she has had bowel movements x2 Clinically much better MSSA bacteremia:Blood cultures 08/04: MSSA 08/05:pending Drug use, History of IV Drug use patient states she smokes meth last IV meth use 2 months ago as per patient UDS: (+) meth, marijuana monitor for withdrawal symptoms As needed Ativan ordered Transthoracic echocardiogram: No signs of vegetation Status post transesophageal echocardiogram showing small vegetation and tricuspid valve which does not require CT surgery input Appreciate cardiology input and recommendation Discussed with the ID specialist-we will need to continue IV cefazolin for 6 weeks Is still has been having fever occasionally Blood cultures x4 have been negative We will get chest x-ray to rule out any pneumonia-showed bibasilar infiltration could be secondary to pulmonary edema and/or pneumonia We will add intravenous doxycycline Spirometry hx chronic pain on Suboxone treatment Constipation possibly from opioid use anxiety/mood disorder/PTSD history of seizure-like activity as per records, patient seen by [facility] outpatient in 2018 ongoing tobacco abuse Nicotine patch DVT prophylaxis. Lovenox subcutaneous daily Full code Admission and Anticipated Discharge Date Admission Date: August 04, 2022 Subjective 08/07/2022 The patient was seen and examined in medical telemetry unit She has been very weak and lethargic but denies any significant symptoms Still having fever No chest pain, shortness of breath or palpitation. No abdominal pain, nausea and or vomiting 08/08/2022 The patient was seen and examined 08/09/2022 The patient was seen and examined in medical telemetry unit She has had bowel movement and has been feeling much better today She still has been having fever Denies any shortness of breath but looks sick We will get chest x-ray to rule out pneumonia Review of Systems Review of Systems: All systems reviewed and are unremarkable except as noted below Musculoskeletal: No acute arthritis involving any joint Neurologic: Generally weak and lethargic Physical Exam Physical Exam: Lying in bed comfortably Constitutional: well developed, well nourished, + ill appearing and average body habitus Eyes: PERRL, conjunctivae normal, anicteric sclerae ENMT: external ear and nose normal, oropharynx normal Neck: trachea midline, no thyromegaly Respiratory: no respiratory distress Auscultation: + diminished lung sounds and + crackles (Minimal crackles bilaterally) Cardiovascular: Rate/Rhythm: regular rate, regular rhythm and + tachycardic Heart Sounds: normal S1 and normal S2; no murmur Extremities: + edema (Trace edema bilaterally) Gastrointestinal (Abdomen): Inspection/Auscultation: normal bowel sounds; abdomen not distended Percussion/Palpation: abdomen soft; abdomen nontender Musculoskeletal: Spine: lumbar spine normal to inspection Neurologic: normal touch/pain/proprioception and moves all extremities; no focal motor deficits Psychiatric: A+Ox3, euthymic affect Lymphatic: no cervical or axillary lymphadenopathy Results & Data Results & Data ([facility]) Vital Signs (Past 12 Hours) Vital Signs Temp Pulse Pulse Resp BP Pulse Ox O2 Del Method 08/09/22 08:00 93 H 08/09/22 11:58 37.1 C 80 18 90/55 L 96 Room Air 08/09/22 08:31 37.4 C 95 H 19 95/62 L 96 Nasal Cannula O2 Flow Rate 08/09/22 08:00 08/09/22 11:58 08/09/22 08:31 2 Laboratory Results Short CBC 08/09/22 Range/Units 05:39 WBC 8.59 (4.8-10.8) K/ul Hgb 8.3 L (12.0-16.0) g/dl Hct 24.3 L (37.0-47.0) % Plt Count 205 (130-400) K/uL BMP 08/09/22 05:39 Sodium 138 Potassium 3.8 Chloride 108 H Carbon Dioxide 24 BUN 5 L Creatinine 0.52 L Glucose 102 H Calcium 8.0 L Liver Function 08/09/22 Range/Units 05:39 Total Bilirubin 0.3 (0.2-1.0) mg/dl AST 20 (13-39) U/L ALT 13 (7-52) U/L Alkaline Phosphatase 101 (34-104) U/L Albumin 2.4 L (3.4-5.0) gm/dl Medications Administered Current Inpatient Medications Acetaminophen (Acetaminophen 325 Mg Tab) 650 mg PO Q4H PRN PRN Reason: Pain or Fever Stop: 09/03/22 06:09 Last Admin: 08/09/22 08:13 Dose: 650 mg Buprenorphine/Naloxone (Buprenorphine/Naloxone 8/2 Mg Tab) 1 tab SL BID [facility] Stop: 09/03/22 08:59 Last Admin: 08/09/22 08:13 Dose: 1 tab Enoxaparin Sodium (Enoxaparin Inj 40 Mg/0.4 Ml Syr) 40 mg SQ QAM [facility] Stop: 09/04/22 15:44 Last Admin: 08/09/22 08:14 Dose: 40 mg Hydroxyzine HCl (Hydroxyzine Hcl 10 Mg Tab) 10 mg PO QID PRN PRN Reason: Anxiety Stop: 09/03/22 04:52 Last Admin: 08/05/22 06:22 Dose: 10 mg Promethazine HCl 12.5 mg/ (Sodium Chloride) 50.5 mls @ 202 mls/hr IV Q6H PRN PRN Reason: Nausea And Vomiting Stop: 09/03/22 04:52 Last Infusion: 08/09/22 09:04 Dose: Infused Cefazolin Sodium (Ancef 2000mg) 2,000 mg in 15 mls @ 3.75 mls/min IV Q8H [facility] Stop: 08/20/22 15:44 Last Admin: 08/09/22 08:41 Dose: 3.75 mls/min Acetaminophen (Ofirmev) 1,000 mg in 100 mls @ 400 mls/hr IV Q8H PRN PRN Reason: Pain or Fever Stop: 08/11/22 19:15 Last Infusion: 08/08/22 19:59 Dose: Infused Doxycycline Hyclate 100 mg/ (Dextrose) 110 mls @ 50 mls/hr IV Q12H [facility] Stop: 08/16/22 14:59 Lidocaine (Lidocaine 5% 1 Patch) 1 patch TD QAM [facility] Stop: 09/03/22 09:29 Last Admin: 08/09/22 08:04 Dose: Not Given Lorazepam (Lorazepam 2 Mg/1 Ml Vial) 0.5 mg IV Q4H PRN PRN Reason: Anxiety/Agitation Stop: 09/04/22 06:12 Last Admin: 08/08/22 00:22 Dose: 0.5 mg Miscellaneous (Remove Lidoderm Patch) 1 each N/A DAILY@2100 [facility] Stop: 09/03/22 20:59 Last Admin: 08/08/22 22:30 Dose: 1 each Miscellaneous (Remove Nicoderm Patch) 1 each N/A DAILY@0859 [facility] Stop: 09/06/22 08:58 Last Admin: 08/09/22 08:14 Dose: 1 each Nicotine (Nicotine 14 Mg/24 Hr Patch) 14 mg TD QAM [facility] Stop: 09/05/22 09:29 Last Admin: 08/09/22 08:14 Dose: 14 mg Potassium Chloride (Potassium Chloride 10 Meq Tabcr) 10 meq PO BID [facility] Stop: 09/07/22 20:59 Last Admin: 08/09/22 08:14 Dose: 10 meq Senna/Docusate Sodium (Docusate Sodium/Senna 50/8.6mg Tab) 1 tab PO QAM [facility] Stop: 09/04/22 08:59 Last Admin: 08/09/22 08:13 Dose: 1 tab (1) Sepsis Sepsis acute organ dysfunction status: unspecified Sepsis type: sepsis due to unspecified organism Qualified Code(s): A41.9 - Sepsis, unspecified organism
[2022-08-09] MEDS: DOXYCYCLINE HYCLATE 100 MG in DEXTROSE 5% 100 ML IV SCH (16:13)
--- NOTE | 2022-08-09 17:23 | Cardiology Progress Note ---
Date of Service August 09, 2022 Assessment & Plan (1) Sepsis: (2) Bacteremia: (3) Infective endocarditis of tricuspid valve: Plan - Transesophageal echocardiogram with findings of very subtle mobile strand-like echodensity on the right atrial aspect of the septal leaflet of the tricuspid valve on CASIE performed 08/07/2022. -Patient with methicillin sensitive Staph aureus bacteremia, E. coli UTI. -History compatible with IV drug use and ongoing substance abuse. -Patient received significant IV fluids, and now has body volume overloaded. -IV fluids discontinued. -Continue oral potassium supplementation. -Received a dose of furosemide 20 mg IV this morning 08/09/2022, with over a liter of subsequent urine output. -Given findings of CT of the abdomen pelvis, with noted pleural effusions, recent poor respiratory intake, doxycycline has been added for coverage of possible pneumonia. Incentive spirometry added. Continue Rocephin. No indication for CT surgery based on CASIE findings, clinical status. Continue Lovenox 40 mg subcu daily for DVT prophylaxis. Anticipate need for long-term IV antibiotics, as per infectious disease. Admission and Anticipated Discharge Date Admission Date: August 04, 2022 Subjective Patient seen in cardiology follow-up. She is more alert today and conversant. She states that she had 2 bowel movements and feels remarkably better from a back pain and abdominal pain standpoint. Most recent temperature 37.3, but did have fever of up to 38.6 last night. Physical Exam Constitutional: + ill appearing Respiratory: normal respiratory effort, lungs clear to auscultation Cardiovascular: RRR, no murmur, no edema Gastrointestinal (Abdomen): normal bowel sounds, soft, nontender, no hepatosplenomegaly Neurologic: PERRL, EOMI, accommodation nl, no face palsy, no dysarthria Results & Data ([facility]) Vital Signs (Past 12 Hours) Vital Signs Temp Pulse Pulse Resp BP Pulse Ox O2 Del Method 08/09/22 16:52 37.3 C 87 17 104/67 95 Room Air 08/09/22 15:46 74 08/09/22 08:00 93 H 08/09/22 11:58 37.1 C 80 18 90/55 L 96 Room Air 08/09/22 08:31 37.4 C 95 H 19 95/62 L 96 Nasal Cannula O2 Flow Rate 08/09/22 16:52 08/09/22 15:46 08/09/22 08:00 08/09/22 11:58 08/09/22 08:31 2 Laboratory Results Cardiac Enzymes 08/09/22 Range/Units 05:39 AST 20 (13-39) U/L CBC 08/09/22 Range/Units 05:39 WBC 8.59 (4.8-10.8) K/ul RBC 2.80 L (4.20-5.40) M/uL Hgb 8.3 L (12.0-16.0) g/dl Hct 24.3 L (37.0-47.0) % Plt Count 205 (130-400) K/uL Neut # (Auto) 7.05 H (1.40-6.50) K/uL Lymph # (Auto) 0.99 L (1.2-3.4) K/uL [place] # (Auto) 0.43 (0.11-0.59) K/uL Eos # (Auto) 0.05 (0-0.50) K/uL Baso # (Auto) 0.01 (0-0.2) K/uL Comprehensive Metabolic Panel 08/09/22 Range/Units 05:39 Sodium 138 (136-145) mmol/L Potassium 3.8 (3.5-5.1) mmol/L Chloride 108 H (98-107) mmol/L Carbon Dioxide 24 (21-32) mmol/L BUN 5 L (6-23) mg/dl Creatinine 0.52 L (0.6-1.2) mg/dl Glucose 102 H (70-99(Fasting)) mg/dl Calcium 8.0 L (8.5-10.1) mg/dl AST 20 (13-39) U/L ALT 13 (7-52) U/L Alkaline Phosphatase 101 (34-104) U/L Total Protein 5.3 L (6.0-8.3) gm/dl Albumin 2.4 L (3.4-5.0) gm/dl Intake and Output 08/09/22 08/09/22 08/09/22 06:59 14:59 22:59 Intake Total 120 / 340 350.5 / 350.5 Output Total 350 / 1802 1452 / 1452 Balance -230 / -1462 -1101.5 / -1101.5 Intake: IV 50.5 / 50.5 Promethazine HCl 12.5 mg In 50.5 / 50.5 Sodium Chloride 0.9% 50 ml @ 202 mls/hr IV Q6H PRN Rx#: [id number] Oral 120 / 240 300 / 300 Output: Urine Amount (Catheter) 350 / 1800 1450 / 1450 Mcintosh/Indwelling 350 / 1800 1450 / 1450 # Bowel Movements 2 / 2 Other: Weight 63.3 kg Weight Measurement Method Built in [facility] (1) Sepsis Sepsis acute organ dysfunction status: unspecified Sepsis type: sepsis due to unspecified organism Qualified Code(s): A41.9 - Sepsis, unspecified organism
[2022-08-09] MEDS: PANTOprazole 40 MG TAB PO SCH (18:36)
[2022-08-09] MEDS: LORazepam 2 MG/1 ML VIAL IV PRN (22:51)
[2022-08-10] MEDS: DOXYCYCLINE HYCLATE 100 MG in DEXTROSE 5% 100 ML IV SCH ×2 (02:45→15:02)
[2022-08-10] MEDS ORDERED: FUROSEMIDE INJ 20 MG/2 ML VIAL IV ONE (07:48)
[2022-08-10] MEDS ORDERED: POTASSIUM CHLORIDE CRTAB 20 MEQ TABCR PO STA (07:48)
[2022-08-10] MEDS: POTASSIUM CHLORIDE 10 MEQ TABCR PO SCH ×2 (08:14→20:25)
[2022-08-10] MEDS: ceFAZolin 2000MG 2,000 MG/15 ML SYR IV SCH ×3 (08:15→23:05)
[2022-08-10] MEDS: NICOTINE 14 MG/24 HR PATCH TD SCH (08:15)
[2022-08-10] MEDS: LIDOCAINE 5% 1 PATCH TD SCH (08:16)
[2022-08-10] MEDS: ENOXAPARIN INJ 40 MG/0.4 ML SYR SQ SCH (08:16)
[2022-08-10] MEDS: BUPRENORPHINE/NALOXONE 8/2 MG TAB SL SCH ×2 (08:16→20:25)
[2022-08-10] MEDS: DOCUSATE SODIUM/SENNA 50/8.6MG TAB PO SCH (08:16)
[2022-08-10] MEDS: PANTOprazole 40 MG TAB PO SCH (08:17)
[2022-08-10] MEDS: ACETAMINOPHEN 1,000 MG/100 ML VIAL IV PRN (10:10)
[2022-08-10 10:15] LABS: Anion Gap 5 (3-11); BUN Creatinine Ratio 12.5 (10-20); Blood Urea Nitrogen 7 mg/dl (6-23); Calcium 8.3 mg/dl (8.5-10.1); Carbon Dioxide 27 mmol/L (21-32); Chloride 105 mmol/L (98-107); Creatinine Clr Calc Pharmacy 106.6 ml/min; Est GFR (Non-African American) 120.8 ml/min; Glucose 93 mg/dl (70-99(Fasting)); Sodium 137 mmol/L (136-145)
--- NOTE | 2022-08-10 10:29 | Cardiology Progress Note ---
Date of Service August 10, 2022 Assessment & Plan (1) Sepsis: (2) Bacteremia: (3) Infective endocarditis of tricuspid valve: Plan Transesophageal echocardiogram with findings of very subtle mobile strand-like echodensity on the right atrial aspect of the septal leaflet of the tricuspid valve on CASIE performed 08/07/2022. Cultures demonstrate methicillin sensitive Staph aureus bacteremia, E. coli UTI. History compatible with IV drug use and ongoing substance abuse. Patient received dose of furosemide 08/09/2022. Appears euvolemic today. Anticipate need for long-term IV antibiotics. Await infectious disease recommendations. Continue Lovenox 40 mg subcu daily for DVT prophylaxis. Admission and Anticipated Discharge Date Admission Date: August 04, 2022 Subjective Patient seen examined the bedside. Feeling well today. No fevers overnight. Telemetry reveals sinus rhythm in the 70s. Negative blood cultures since 08/07/2022. Review of Systems Review of Systems: All systems reviewed & are unremarkable except as noted in Subjective Physical Exam Constitutional: well nourished; no acute distress and not ill appearing Respiratory: normal respiratory effort; no respiratory distress, no labored breathing and no retractions Auscultation: no crackles, no rales, no rhonchi and no wheezes Cardiovascular: Rate/Rhythm: regular rate and regular rhythm Heart Sounds: normal S1 and normal S2; no murmur Vessels: radial pulses present; no JVD and no carotid bruit Extremities: no edema Gastrointestinal (Abdomen): Inspection/Auscultation: abdomen normal to inspection and normal bowel sounds; abdomen not distended Percussion/Palpation: abdomen soft; abdomen nontender, no guarding and abdomen not rigid Neurologic: CN's II-XI intact bilaterally; no focal motor deficits Results & Data ([facility]) Vital Signs (Past 12 Hours) Vital Signs Temp Pulse Pulse Resp BP Pulse Ox O2 Del Method 08/10/22 06:59 77 08/10/22 06:22 36.8 C 75 18 96/62 L 94 Room Air 08/10/22 02:57 37.0 C 83 18 96/55 L 93 Room Air 08/09/22 23:29 75 (1) Sepsis Sepsis acute organ dysfunction status: unspecified Sepsis type: sepsis due to unspecified organism Qualified Code(s): A41.9 - Sepsis, unspecified organism
[2022-08-10 11:22] LABS: Basophils # (auto) 0.01 K/uL (0-0.2); Basophils % (auto) 0.1 %; Eosinophils # (auto) 0.15 K/uL (0-0.50); Eosinophils % (auto) 1.6 %; Hematocrit (blood only) 24.4 % (37.0-47.0); Hemoglobin 8.4 g/dl (12.0-16.0); Immature Granulocytes # (auto) 0.11 K/uL (0.01-0.20); Immature Granulocytes % (auto) 1.2 %; Lymphocytes # (auto) 1.62 K/uL (1.2-3.4); Lymphocytes % (auto) 17.7 %; Mean Corpuscular Hemoglobin 29.8 pg (25.0-34.0); Mean Corpuscular Hgb Conc 34.4 g/dL (32.0-36.0); Mean Corpuscular Volume 86.5 fL (80.0-100.0); Mean Platelet Volume 10.4 fL (9.4-12.4); Monocytes # (auto) 0.55 K/uL (0.11-0.59); Neutrophils # (auto) 6.69 K/uL (1.40-6.50); Neutrophils % (auto) 73.4 %; Platelet Count 285 K/uL (130-400); RDW Coefficient of Variation 13.2 % (11.5-14.5); RDW Standard Deviation 41.5 fL (36.4-46.3); Red Blood Count 2.82 M/uL (4.20-5.40); White Blood Count 9.13 K/ul (4.8-10.8)
--- NOTE | 2022-08-10 14:02 | Hospitalist Progress Note ---
Date of Service August 10, 2022 Assessment & Plan (1) Sepsis: (2) Bacteremia: (3) Infection of lumbar spine: (4) UTI (urinary tract infection): Plan: (1) Sepsis: Plan: Secondary to complicated UTI Urine culture grew E. coli which is pansensitive Has been on cefazolin and will continue Complicated by MSSA bacteremia Lumbar epidural phlegmon without any evidence of osteomyelitis Lumbar spine MRI: 1. Abnormal epidural enhancement within the lower lumbar and sacral canals. Mild lumbosacral prevertebral edema and enhancement. This is nonspecific but given the clinical history is suspicious for an infectious process with possible epidural phlegmon. No rim-enhancing fluid collection to suggest abscess. If persistent back pain, short-term follow-up lumbar spine MRI with and without contrast is recommended. 2. No evidence for discitis or osteomyelitis. 3. Central disc protrusion at L5-S1 which results in mild narrowing of the central canal and moderate narrowing of both lateral recesses. 4. 4 cm T1 hyperintense right adnexal lesion. This favors a hemorrhagic ovarian cyst or endometrioma. Appreciate orthospine input and recommendation No spinal tenderness and no signs of radiculopathy pain Denies any more back pain and overall pain is reasonably controlled Constipation Has not had bowel movements 41 Complaints of abdominal discomfort and pain this afternoon With significant anxiety CT scan did not show any obstruction last night KUB did not show an obstruction And following lactulose enema she has had bowel movements x2 Clinically much better today and did not have any more fever Continue with current bowel regimen MSSA bacteremia:Blood cultures 08/04: MSSA 08/05:pending Drug use, History of IV Drug use patient states she smokes meth last IV meth use 2 months ago as per patient UDS: (+) meth, marijuana monitor for withdrawal symptoms As needed Ativan ordered Transthoracic echocardiogram: No signs of vegetation Status post transesophageal echocardiogram showing small vegetation and tricuspid valve which does not require CT surgery input Appreciate cardiology input and recommendation Discussed with the ID specialist-we will need to continue IV cefazolin for 6 w eeks Is still has been having fever occasionally Blood cultures x4 have been negative We will get chest x-ray to rule out any pneumonia-showed bibasilar infiltration could be secondary to pulmonary edema and/or pneumonia We will add intravenous doxycycline Spirometry Feeling much better following addition of doxycycline which will be continued for now hx chronic pain on Suboxone treatment Constipation possibly from opioid use anxiety/mood disorder/PTSD history of seizure-like activity as per records, patient seen by [facility] outpatient in 2018 ongoing tobacco abuse Nicotine patch DVT prophylaxis. Lovenox subcutaneous daily Full code Wants to go home which will be discussed with the gearcase assembler following recommendation from physical therapist Admission and Anticipated Discharge Date Admission Date: August 04, 2022 Subjective 08/07/2022 The patient was seen and examined in medical telemetry unit She has been very weak and lethargic but denies any significant symptoms Still having fever No chest pain, shortness of breath or palpitation. No abdominal pain, nausea and or vomiting 08/08/2022 The patient was seen and examined 08/09/2022 The patient was seen and examined in medical telemetry unit She has had bowel movement and has been feeling much better today She still has been having fever Denies any shortness of breath but looks sick We will get chest x-ray to rule out pneumonia 08/10/2022 The patient was seen and examined in medical telemetry unit She has been doing much better following bowel movement There is no more increase in temperature Her blood pressure remains on the lower side of normal at 95/45 Review of Systems Review of Systems: All systems reviewed and are unremarkable except as noted below Neurologic: Generalized weakness Physical Exam Physical Exam: Lying in bed comfortably Constitutional: well developed, well nourished, + ill appearing and average body habitus Eyes: PERRL, conjunctivae normal, anicteric sclerae ENMT: external ear and nose normal, oropharynx normal Neck: trachea midline, no thyromegaly Respiratory: no respiratory distress Auscultation: + diminished lung sounds and + crackles (Minimal crackles bilaterally) Cardiovascular: Rate/Rhythm: regular rate, regular rhythm and + tachycardic Heart Sounds: normal S1 and normal S2; no murmur Extremities: + edema (Trace edema bilaterally) Gastrointestinal (Abdomen): Inspection/Auscultation: normal bowel sounds; abdomen not distended Percussion/Palpation: abdomen soft; abdomen nontender Musculoskeletal: Spine: lumbar spine normal to inspection Neurologic: normal touch/pain/proprioception and moves all extremities; no focal motor deficits Psychiatric: A+Ox3, euthymic affect Lymphatic: no cervical or axillary lymphadenopathy Results & Data Results & Data ([facility]) Vital Signs (Past 12 Hours) Vital Signs Temp Pulse Pulse Resp BP Pulse Ox O2 Del Method 08/10/22 12:30 94 Room Air 08/10/22 12:16 37.1 C 87 16 95/45 L 90 Room Air 08/10/22 06:59 77 08/10/22 06:22 36.8 C 75 18 96/62 L 94 Room Air 08/10/22 02:57 37.0 C 83 18 96/55 L 93 Room Air Laboratory Results Short CBC 08/10/22 08/10/22 Range/Units 08:49 10:45 WBC Cancelled 9.13 Hgb Cancelled 8.4 L Hct Cancelled 24.4 L Plt Count Cancelled 285 BMP 08/10/22 08/10/22 08:48 10:45 Sodium 137 Potassium TNP 4.3 Chloride 105 Carbon Dioxide 27 BUN 7 Creatinine 0.56 L Glucose 93 Calcium 8.3 L Medications Administered Current Inpatient Medications Acetaminophen (Acetaminophen 325 Mg Tab) 650 mg PO Q4H PRN PRN Reason: Pain or Fever Stop: 09/03/22 06:09 Last Admin: 08/09/22 23:19 Dose: 650 mg Buprenorphine/Naloxone (Buprenorphine/Naloxone 8/2 Mg Tab) 1 tab SL BID [facility] Stop: 09/03/22 08:59 Last Admin: 08/10/22 08:16 Dose: 1 tab Enoxaparin Sodium (Enoxaparin Inj 40 Mg/0.4 Ml Syr) 40 mg SQ QAM [facility] Stop: 09/04/22 15:44 Last Admin: 08/10/22 08:16 Dose: 40 mg Hydroxyzine HCl (Hydroxyzine Hcl 10 Mg Tab) 10 mg PO QID PRN PRN Reason: Anxiety Stop: 09/03/22 04:52 Last Admin: 08/05/22 06:22 Dose: 10 mg Promethazine HCl 12.5 mg/ (Sodium Chloride) 50.5 mls @ 202 mls/hr IV Q6H PRN PRN Reason: Nausea And Vomiting Stop: 09/03/22 04:52 Last Infusion: 08/09/22 09:04 Dose: Infused Cefazolin Sodium (Ancef 2000mg) 2,000 mg in 15 mls @ 3.75 mls/min IV Q8H [facility] Stop: 08/20/22 15:44 Last Admin: 08/10/22 08:15 Dose: 3.75 mls/min Acetaminophen (Ofirmev) 1,000 mg in 100 mls @ 400 mls/hr IV Q8H PRN PRN Reason: Pain or Fever Stop: 08/11/22 19:15 Last Infusion: 08/10/22 10:31 Dose: Infused Doxycycline Hyclate 100 mg/ (Dextrose) 110 mls @ 50 mls/hr IV Q12H [facility] Stop: 08/16/22 14:59 Last Infusion: 08/10/22 05:05 Dose: Infused Ketorolac Tromethamine (Ketorolac 30 Mg/Ml Vial) 30 mg IV Q6H PRN PRN Reason: Pain Stop: 08/15/22 10:22 Lidocaine (Lidocaine 5% 1 Patch) 1 patch TD QAM [facility] Stop: 09/03/22 09:29 Last Admin: 08/10/22 08:16 Dose: 1 patch Lorazepam (Lorazepam 2 Mg/1 Ml Vial) 0.5 mg IV Q4H PRN PRN Reason: Anxiety/Agitation Stop: 09/04/22 06:12 Last Admin: 08/09/22 22:51 Dose: 0.5 mg Miscellaneous (Remove Lidoderm Patch) 1 each N/A DAILY@2100 [facility] Stop: 09/03/22 20:59 Last Admin: 08/09/22 20:36 Dose: Not Given Miscellaneous (Remove Nicoderm Patch) 1 each N/A DAILY@0859 [facility] Stop: 09/06/22 08:58 Last Admin: 08/10/22 08:15 Dose: 1 each Nicotine (Nicotine 14 Mg/24 Hr Patch) 14 mg TD QAM [facility] Stop: 09/05/22 09:29 Last Admin: 08/10/22 08:15 Dose: 14 mg Pantoprazole Sodium (Pantoprazole 40 Mg Tab) 40 mg PO QAM [facility] Stop: 09/08/22 17:44 Last Admin: 08/10/22 08:17 Dose: 40 mg Potassium Chloride (Potassium Chloride 10 Meq Tabcr) 10 meq PO BID [facility] Stop: 09/07/22 20:59 Last Admin: 08/10/22 08:14 Dose: 10 meq Senna/Docusate Sodium (Docusate Sodium/Senna 50/8.6mg Tab) 1 tab PO QAM [facility] Stop: 09/04/22 08:59 Last Admin: 08/10/22 08:16 Dose: 1 tab (1) Sepsis Sepsis acute organ dysfunction status: unspecified Sepsis type: sepsis due to unspecified organism Qualified Code(s): A41.9 - Sepsis, unspecified organism
[2022-08-10] MEDS: KETOROLAC 30 MG/ML VIAL IV PRN (15:12)
[2022-08-10] MEDS: ACETAMINOPHEN 325 MG TAB PO PRN (19:44)
[2022-08-10] MEDS: LORazepam 2 MG/1 ML VIAL IV PRN (23:15)
[2022-08-11] MEDS: DOXYCYCLINE HYCLATE 100 MG in DEXTROSE 5% 100 ML IV SCH ×2 (02:29→15:02)
[2022-08-11] MEDS: ACETAMINOPHEN 325 MG TAB PO PRN (02:30)
[2022-08-11] MEDS: KETOROLAC 30 MG/ML VIAL IV PRN ×3 (04:43→20:33)
[2022-08-11 06:26] LABS: Creatinine Clr Calc Pharmacy 129.9 ml/min; Est GFR (African American) > 150.0 ml/min; Est GFR (Non-African American) 129.8 ml/min
[2022-08-11] MEDS: NICOTINE 14 MG/24 HR PATCH TD SCH (08:32)
[2022-08-11] MEDS: PANTOprazole 40 MG TAB PO SCH (08:34)
[2022-08-11] MEDS: ENOXAPARIN INJ 40 MG/0.4 ML SYR SQ SCH (08:34)
[2022-08-11] MEDS: DOCUSATE SODIUM/SENNA 50/8.6MG TAB PO SCH (08:34)
[2022-08-11] MEDS: POTASSIUM CHLORIDE 10 MEQ TABCR PO SCH ×2 (08:34→20:29)
[2022-08-11] MEDS: LIDOCAINE 5% 1 PATCH TD SCH (08:34)
[2022-08-11] MEDS: ceFAZolin 2000MG 2,000 MG/15 ML SYR IV SCH ×3 (08:34→23:07)
[2022-08-11] MEDS: BUPRENORPHINE/NALOXONE 8/2 MG TAB SL SCH ×2 (09:06→20:30)
--- NOTE | 2022-08-11 12:43 | Hospitalist Progress Note ---
Date of Service August 11, 2022 Assessment & Plan (1) Sepsis: (2) Bacteremia: (3) Infection of lumbar spine: (4) UTI (urinary tract infection): Plan: (1) Sepsis: Plan: Secondary to complicated UTI Urine culture grew E. coli which is pansensitive Has been on cefazolin and will continue Complicated by MSSA bacteremia Lumbar epidural phlegmon without any evidence of osteomyelitis Lumbar spine MRI: 1. Abnormal epidural enhancement within the lower lumbar and sacral canals. Mild lumbosacral prevertebral edema and enhancement. This is nonspecific but given the clinical history is suspicious for an infectious process with possible epidural phlegmon. No rim-enhancing fluid collection to suggest abscess. If persistent back pain, short-term follow-up lumbar spine MRI with and without contrast is recommended. 2. No evidence for discitis or osteomyelitis. 3. Central disc protrusion at L5-S1 which results in mild narrowing of the central canal and moderate narrowing of both lateral recesses. 4. 4 cm T1 hyperintense right adnexal lesion. This favors a hemorrhagic ovarian cyst or endometrioma. Appreciate orthospine input and recommendation No spinal tenderness and no signs of radiculopathy pain Denies any more back pain and overall pain is reasonably controlled Has been getting physical therapy and recommended home Constipation Has not had bowel movements 41 Complaints of abdominal discomfort and pain this afternoon With significant anxiety CT scan did not show any obstruction last night KUB did not show an obstruction And following lactulose enema she has had bowel movements x2 Clinically much better today and did not have any more fever Continue with current bowel regimen MSSA bacteremia:Blood cultures 08/04: MSSA 08/05:pending Drug use, History of IV Drug use patient states she smokes meth last IV meth use 2 months ago as per patient UDS: (+) meth, marijuana monitor for withdrawal symptoms As needed Ativan ordered Transthoracic echocardiogram: No signs of vegetation Status post transesophageal echocardiogram showing small vegetation and tricuspid valve which does not require CT surgery input Appreciate cardiology input and recommendation Discussed with the ID specialist-we will need to continue IV cefazolin for 6 weeks Is still has been having fever occasionally Blood cultures x4 have been negative We will get chest x-ray to rule out any pneumonia-showed bibasilar infiltration could be secondary to pulmonary edema and/or pneumonia We will add intravenous doxycycline Spirometry Feeling much better following addition of doxycycline which will be continued for now Remains stable without any fever for the last more than 24 hours We will plan to put PICC line/ultrasound-guided line tomorrow and discharge the patient likely to a rehab given the history of IV drug abuse 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 Lovenox subcutaneous daily Full code Wants to go home which will be discussed with the renal case manager following recommendation from physical therapist Admission and Anticipated Discharge Date Admission Date: August 04, 2022 Subjective 08/07/2022 The patient was seen and examined in medical telemetry unit She has been very weak and lethargic but denies any significant symptoms Still having fever No chest pain, shortness of breath or palpitation. No abdominal pain, nausea and or vomiting 08/08/2022 The patient was seen and examined 08/09/2022 The patient was seen and examined in medical telemetry unit She has had bowel movement and has been feeling much better today She still has been having fever Denies any shortness of breath but looks sick We will get chest x-ray to rule out pneumonia 08/10/2022 The patient was seen and examined in medical telemetry unit She has been doing much better following bowel movement There is no more increase in temperature Her blood pressure remains on the lower side of normal at 95/45 08/11/2022 The patient was seen and examined in medical telemetry unit She has been much better and did not have any more fever for the last more than 24 hours Has had bowel movement and feeling a lot better Denies any other significant symptoms Review of Systems Review of Systems: All systems reviewed and are unremarkable except as noted below Musculoskeletal: No acute arthritis involving any joint Neurologic: Generalized weakness Physical Exam Physical Exam: Lying in bed comfortably Constitutional: well developed, well nourished, + ill appearing and average body habitus Eyes: PERRL, conjunctivae normal, anicteric sclerae ENMT: external ear and nose normal, oropharynx normal Neck: trachea midline, no thyromegaly Respiratory: no respiratory distress Auscultation: + diminished lung sounds and + crackles (Minimal crackles bilaterally) Cardiovascular: Rate/Rhythm: regular rate, regular rhythm and + tachycardic Heart Sounds: normal S1 and normal S2; no murmur Extremities: + edema (Trace edema bilaterally) Gastrointestinal (Abdomen): Inspection/Auscultation: normal bowel sounds; abd omen not distended Percussion/Palpation: abdomen soft; abdomen nontender Musculoskeletal: Spine: lumbar spine normal to inspection Neurologic: normal touch/pain/proprioception and moves all extremities; no focal motor deficits Psychiatric: A+Ox3, euthymic affect Lymphatic: no cervical or axillary lymphadenopathy Results & Data Results & Data ([facility]) Vital Signs (Past 12 Hours) Vital Signs Temp Pulse Pulse Resp BP Pulse Ox O2 Del Method 08/11/22 11:23 36.6 C 74 16 99/59 L 97 Room Air 08/11/22 07:14 77 08/11/22 06:48 36.8 C 70 18 95/57 L 93 Room Air 08/11/22 04:02 36.8 C 85 18 95/56 L 98 Room Air Laboratory Results [facility] 08/11/22 05:29 Creatinine 0.45 L Medications Administered Current Inpatient Medications Acetaminophen (Acetaminophen 325 Mg Tab) 650 mg PO Q4H PRN PRN Reason: Pain or Fever Stop: 09/03/22 06:09 Last Admin: 08/11/22 02:30 Dose: 650 mg Buprenorphine/Naloxone (Buprenorphine/Naloxone 8/2 Mg Tab) 1 tab SL BID [facility] Stop: 09/03/22 08:59 Last Admin: 08/11/22 09:06 Dose: 1 tab Enoxaparin Sodium (Enoxaparin Inj 40 Mg/0.4 Ml Syr) 40 mg SQ QAM [facility] Stop: 09/04/22 15:44 Last Admin: 08/11/22 08:34 Dose: 40 mg Hydroxyzine HCl (Hydroxyzine Hcl 10 Mg Tab) 10 mg PO QID PRN PRN Reason: Anxiety Stop: 09/03/22 04:52 Last Admin: 08/05/22 06:22 Dose: 10 mg Promethazine HCl 12.5 mg/ (Sodium Chloride) 50.5 mls @ 202 mls/hr IV Q6H PRN PRN Reason: Nausea And Vomiting Stop: 09/03/22 04:52 Last Infusion: 08/09/22 09:04 Dose: Infused Cefazolin Sodium (Ancef 2000mg) 2,000 mg in 15 mls @ 3.75 mls/min IV Q8H [facility] Stop: 08/20/22 15:44 Last Admin: 08/11/22 08:34 Dose: 3.75 mls/min Acetaminophen (Ofirmev) 1,000 mg in 100 mls @ 400 mls/hr IV Q8H PRN PRN Reason: Pain or Fever Stop: 08/11/22 19:15 Last Infusion: 08/10/22 10:31 Dose: Infused Doxycycline Hyclate 100 mg/ (Dextrose) 110 mls @ 50 mls/hr IV Q12H [facility] Stop: 08/16/22 14:59 Last Infusion: 08/11/22 04:41 Dose: Infused Ketorolac Tromethamine (Ketorolac 30 Mg/Ml Vial) 30 mg IV Q6H PRN PRN Reason: Pain Stop: 08/15/22 10:22 Last Admin: 08/11/22 10:09 Dose: 30 mg Lidocaine (Lidocaine 5% 1 Patch) 1 patch TD QAM [facility] Stop: 09/03/22 09:29 Last Admin: 08/11/22 08:34 Dose: Not Given Lorazepam (Lorazepam 2 Mg/1 Ml Vial) 0.5 mg IV Q4H PRN PRN Reason: Anxiety/Agitation Stop: 09/04/22 06:12 Last Admin: 08/10/22 23:15 Dose: 0.5 mg Miscellaneous (Remove Lidoderm Patch) 1 each N/A DAILY@2100 [facility] Stop: 09/03/22 20:59 Last Admin: 08/10/22 20:26 Dose: Not Given Miscellaneous (Remove Nicoderm Patch) 1 each N/A DAILY@0859 [facility] Stop: 09/06/22 08:58 Last Admin: 08/11/22 08:33 Dose: 1 each Nicotine (Nicotine 14 Mg/24 Hr Patch) 14 mg TD QAM [facility] Stop: 09/05/22 09:29 Last Admin: 08/11/22 08:32 Dose: 14 mg Pantoprazole Sodium (Pantoprazole 40 Mg Tab) 40 mg PO QAM [facility] Stop: 09/08/22 17:44 Last Admin: 08/11/22 08:34 Dose: 40 mg Potassium Chloride (Potassium Chloride 10 Meq Tabcr) 10 meq PO BID [facility] Stop: 09/07/22 20:59 Last Admin: 08/11/22 08:34 Dose: 10 meq Senna/Docusate Sodium (Docusate Sodium/Senna 50/8.6mg Tab) 1 tab PO QAM [facility] Stop: 09/04/22 08:59 Last Admin: 08/11/22 08:34 Dose: 1 tab (1) Sepsis Sepsis acute organ dysfunction status: unspecified Sepsis type: sepsis due to unspecified organism Qualified Code(s): A41.9 - Sepsis, unspecified organism
[2022-08-12] MEDS: DOXYCYCLINE HYCLATE 100 MG in DEXTROSE 5% 100 ML IV SCH (02:09)
[2022-08-12] MEDS: POLYETHYLENE (MIRALAX) 17 GM PACK PO PRN ×2 (02:22→08:26)
[2022-08-12 06:17] LABS: Basophils # (auto) 0.02 K/uL (0-0.2); Basophils % (auto) 0.2 %; Eosinophils # (auto) 0.13 K/uL (0-0.50); Eosinophils % (auto) 1.6 %; Hematocrit (blood only) 28.2 % (37.0-47.0); Hemoglobin 9.3 g/dl (12.0-16.0); Immature Granulocytes # (auto) 0.14 K/uL (0.01-0.20); Immature Granulocytes % (auto) 1.7 %; Lymphocytes # (auto) 2.67 K/uL (1.2-3.4); Lymphocytes % (auto) 32.9 %; Mean Corpuscular Hemoglobin 29.5 pg (25.0-34.0); Mean Corpuscular Volume 89.5 fL (80.0-100.0); Mean Platelet Volume 9.9 fL (9.4-12.4); Monocytes # (auto) 0.42 K/uL (0.11-0.59); Monocytes % (auto) 5.2 %; Neutrophils # (auto) 4.73 K/uL (1.40-6.50); Neutrophils % (auto) 58.4 %; Platelet Count 492 K/uL (130-400); RDW Coefficient of Variation 13.4 % (11.5-14.5); Red Blood Count 3.15 M/uL (4.20-5.40); White Blood Count 8.11 K/ul (4.8-10.8)
[2022-08-12] MEDS: ACETAMINOPHEN 325 MG TAB PO PRN (06:25)
[2022-08-12 06:31] LABS: BUN Creatinine Ratio 20.8 (10-20); Calcium 8.3 mg/dl (8.5-10.1); Creatinine Clr Calc Pharmacy 121.8 ml/min; Est GFR (African American) 147.3 ml/min; Est GFR (Non-African American) 127.1 ml/min; Potassium 4.4 mmol/L (3.5-5.1)
[2022-08-12] MEDS: POTASSIUM CHLORIDE 10 MEQ TABCR PO SCH (08:20)
[2022-08-12] MEDS: PANTOprazole 40 MG TAB PO SCH (08:20)
[2022-08-12] MEDS: ENOXAPARIN INJ 40 MG/0.4 ML SYR SQ SCH (08:20)
[2022-08-12] MEDS: NICOTINE 14 MG/24 HR PATCH TD SCH (08:26)
[2022-08-12] MEDS: BUPRENORPHINE/NALOXONE 8/2 MG TAB SL SCH (08:26)
[2022-08-12] MEDS: ceFAZolin 2000MG 2,000 MG/15 ML SYR IV SCH (08:26)
[2022-08-12] MEDS: DOCUSATE SODIUM/SENNA 50/8.6MG TAB PO SCH (08:33)
[2022-08-12] MEDS: LIDOCAINE 5% 1 PATCH TD SCH (11:40)
--- NOTE | 2022-08-12 15:52 | Hospitalist Progress Note ---
Date of Service August 12, 2022 Assessment & Plan (1) Sepsis: (2) Bacteremia: (3) Infection of lumbar spine: (4) UTI (urinary tract infection): Plan: (1) Sepsis: Plan: Secondary to complicated UTI Urine culture grew E. coli which is pansensitive Has been on cefazolin and will continue Complicated by MSSA bacteremia Lumbar epidural phlegmon without any evidence of osteomyelitis Lumbar spine MRI: 1. Abnormal epidural enhancement within the lower lumbar and sacral canals. Mild lumbosacral prevertebral edema and enhancement. This is nonspecific but given the clinical history is suspicious for an infectious process with possible epidural phlegmon. No rim-enhancing fluid collection to suggest abscess. If persistent back pain, short-term follow-up lumbar spine MRI with and without contrast is recommended. 2. No evidence for discitis or osteomyelitis. 3. Central disc protrusion at L5-S1 which results in mild narrowing of the central canal and moderate narrowing of both lateral recesses. 4. 4 cm T1 hyperintense right adnexal lesion. This favors a hemorrhagic ovarian cyst or endometrioma. Appreciate orthospine input and recommendation No spinal tenderness and no signs of radiculopathy pain Denies any more back pain and overall pain is reasonably controlled Has been getting physical therapy and recommended home Detailed note from today's encounter-08/12/2022 Cannot go home with the PICC line due to history of IV drug abuser and no home health agency will take her due to the same reason She is not qualified to go to rehab but definitely she can go inpatient drug and alcohol rehab area which she refused to go Detailed discussion with the ID specialist in [place] and pharmacist in the hospital was done regarding possibility of intravenous Dalvance or even oral Zyvox Those are not FDA approved drugs for her bacteremia but it has been in the literature that people are using it and no data is available to see the effectiveness It will be a last resort for this patient as because he will sign out AMA which will be harmful for her medical condition We will discuss with her and then go from there-unfortunately patient left AMA and was brought in by the mother in the emergency room this afternoon Constipation Has not had bowel movements 41 Complaints of abdominal discomfort and pain this afternoon With significant anxiety CT scan did not show any obstruction last night KUB did not show an obstruction And following lactulose enema she has had bowel movements x2 Clinically much better today and did not have any more fever Continue with current bowel regimen MSSA bacteremia:Blood cultures 08/04: MSSA 08/05:pending Drug use, History of IV Drug use patient states she smokes meth last IV meth use 2 months ago as per patient UDS: (+) meth, marijuana monitor for withdrawal symptoms As needed Ativan ordered Transthoracic echocardiogram: No signs of vegetation Status post transesophageal echocardiogram showing small vegetation and tricuspid valve which does not require CT surgery input Appreciate cardiology input and recommendation Discussed with the ID specialist-we will need to continue IV cefazolin for 6 weeks Is still has been having fever occasionally Blood cultures x4 have been negative We will get chest x-ray to rule out any pneumonia-showed bibasilar infiltration could be secondary to pulmonary edema and/or pneumonia We will add intravenous doxycycline Spirometry Feeling much better following addition of doxycycline which will be continued for now Remains stable without any fever for the last more than 24 hours We will plan to put PICC line/ultrasound-guided line tomorrow and discharge the patient likely to a rehab given the history of IV drug abuse manager placement has to be involved hx chronic pain on Suboxone treatment Constipation possibly from opioid use anxiety/mood disorder/PTSD history of seizure-like activity as per records, patient seen by [facility] outpatient in 2018 ongoing tobacco abuse Nicotine patch DVT prophylaxis. Lovenox subcutaneous daily Full code Wants to go home which will be discussed with the special education case manager following recommendation from physical therapist Admission and Anticipated Discharge Date Admission Date: August 04, 2022 Subjective 08/07/2022 The patient was seen and examined in medical telemetry unit She has been very weak and lethargic but denies any significant symptoms Still having fever No chest pain, shortness of breath or palpitation. No abdominal pain, nausea and or vomiting 08/08/2022 The patient was seen and examined 08/09/2022 The patient was seen and examined in medical telemetry unit She has had bowel movement and has been feeling much better today She still has been having fever Denies any shortness of breath but looks sick We will get chest x-ray to rule out pneumonia 08/10/2022 The patient was seen and examined in medical telemetry unit She has been doing much better following bowel movement There is no more increase in temperature Her blood pressure remains on the lower side of normal at 95/45 08/11/2022 The patient was seen and examined in medical telemetry unit She has been much better and did not have any more fever for the last more than 24 hours Has had bowel movement and feeling a lot better Denies any other significant symptoms 08/12/2022 The patient was seen and examined in medical telemetry unit She has been feeling much better and denies any significant symptoms She was advised to have intravenous antibiotic as planned for total of 6 weeks She was deciding on that and later on absconded Review of Systems Review of Systems: All systems reviewed and are unremarkable except as noted below Musculoskeletal: No acute arthritis involving any joint Neurologic: Generalized weakness Physical Exam Physical Exam: Lying in bed comfortably Constitutional: well developed, well nourished, + ill appearing and average body habitus Eyes: PERRL, conjunctivae normal, anicteric sclerae ENMT: external ear and nose normal, oropharynx normal Neck: trachea midline, no thyromegaly Respiratory: no respiratory distress Auscultation: + diminished lung sounds and + crackles (Minimal crackles bilaterally) Cardiovascular: Rate/Rhythm: regular rate, regular rhythm and + tachycardic Heart Sounds: normal S1 and normal S2; no murmur Extremities: + edema (Trace edema bilaterally) Gastrointestinal (Abdomen): Inspection/Auscultation: normal bowel sounds; abdomen not distended Percussion/Palpation: abdomen soft; abdomen nontender Musculoskeletal: Spine: lumbar spine normal to inspection Neurologic: normal touch/pain/proprioception and moves all extremities; no focal motor deficits Psychiatric: A+Ox3, euthymic affect Lymphatic: no cervical or axillary lymphadenopathy Results & Data Results & Data ([facility]) Vital Signs (Past 12 Hours) Vital Signs Temp Pulse Pulse Resp BP BP Pulse Ox 08/12/22 15:01 36.7 C 80 20 92/56 L 92/51 L 97 08/12/22 11:32 36.7 C 80 20 92/51 L 97 08/12/22 07:56 37.5 C 89 16 95/60 L 93 08/12/22 07:41 90 08/12/22 04:39 37.1 C 08/12/22 04:00 37.6 C H 80 16 92/56 L 95 O2 Del Method 08/12/22 15:01 08/12/22 11:32 Room Air 08/12/22 07:56 Room Air 08/12/22 07:41 08/12/22 04:39 08/12/22 04:00 Room Air Laboratory Results Short CBC 08/12/22 Range/Units 05:42 WBC 8.11 (4.8-10.8) K/ul Hgb 9.3 L (12.0-16.0) g/dl Hct 28.2 L (37.0-47.0) % Plt Count 492 H D (130-400) K/uL BMP 08/12/22 05:42 Sodium 137 Potassium 4.4 Chloride 106 Carbon Dioxide 27 BUN 10 Creatinine 0.48 L Glucose 98 Calcium 8.3 L (1) Sepsis Sepsis acute organ dysfunction status: unspecified Sepsis type: sepsis due to unspecified organism Qualified Code(s): A41.9 - Sepsis, unspecified organism
--- NOTE | 2022-08-20 07:30 | Discharge Summary ---
Date of Service August 13, 2022 Admission HPI Per Admitting Provider Chief Complaint: Back pain, leg weakness Primary Care Provider: Gus Blake DO History obtained from patient, family, and records. Medical history significant for chronic pain on Suboxone treatment, past history IVDU, anxiety/mood disorder, PTSD, history of seizure-like activity as per records, ongoing tobacco abuse. Last confinement 2011 for status post section. [facility] [place] [facility] [place] last January 2022 for left lower lobe pneumonia status post Z-Syed Rx at home. Patient not feeling well since last week. Achy back pain with radiation to both legs and weakness. Achy abdominal pain going to the lower chest with constipation. Constipation not responsive to enemas. No shortness of breath, no cough symptoms, no headache symptoms. Patient denies recent IVDU although mother has noticed fresh track bacon on patient's arms. EMS summoned to patient's home. Patient brought to the ER for evaluation. Vancomycin and Zosyn administered at the ER. Admission Exam Per Admitting Provider Physical Exam: GENERAL: uncomfortable, no respiratory distress SKIN: Normal color, warm HEENT: [place] palpebral conjunctivae, no ptosis, dry buccal mucosa NECK : Supple, no tenderness CHEST : CTA, no tenderness HEART : RRR, no obvious murmurs ABDOMEN: Some distention, nontender BACK : Low back tenderness, limited straight leg raise bilateral EXTREMITIES : No LE swelling/tenderness, no other conspicuous deformities noted NEUROLOGIC : Coherent, no facial asymmetry, no other gross focality Principal Diagnosis MSSA Bacteremia Discharge Exam Lying in bed comfortably Constitutional well developed, well nourished, + ill appearing and average body habitus Eyes PERRL, conjunctivae normal, anicteric sclerae ENMT external ear and nose normal, oropharynx normal Neck trachea midline, no thyromegaly Respiratory no respiratory distress Auscultation: + diminished lung sounds and + crackles (Minimal crackles bilaterally) Cardiovascular Rate/Rhythm: regular rate, regular rhythm and + tachycardic Heart Sounds: normal S1 and normal S2; no murmur Extremities: + edema (Trace edema bilaterally) Gastrointestinal (Abdomen) Inspection/Auscultation: normal bowel sounds; abdomen not distended Percussion/Palpation: abdomen soft; abdomen nontender Musculoskeletal Spine: lumbar spine normal to inspection Neurologic normal touch/pain/proprioception and moves all extremities; no focal motor deficits Psychiatric A+Ox3, euthymic affect Lymphatic no cervical or axillary lymphadenopathy Discharge Data Allergies Allergy/AdvReac Type Severity Reaction Status Date / Time No Known Allergies Allergy Unverified 08/04/22 01:17 Consultations 08/04/22 03:11 ED Decision to Admit Stat 08/04/22 13:09 Consult Orthopedic Surgery Routine 08/04/22 13:12 Consult Infectious Diseases Routine 08/06/22 15:25 Consult Cardiology Routine 08/06/22 17:21 Consult Anesthesiology Routine Procedures Performed Operation Date: 08/07/22 13:00 Actual Procedures p Echo Transesophageal - Nelson Chapin DO Ordered Studies 08/04/22 01:11 CT Abd and Pelvis [CT abd pelvis IV con only] Urgent CT angio chest PE protocol Urgent 08/04/22 02:55 MR lumbar spine wo/w con Stat 08/04/22 09:24 CT head/brain wo con Routine 08/08/22 03:52 CT Abd and Pelvis [CT abd pelvis IV con only] Urgent Hospital Course (1) Sepsis: (2) Bacteremia: (3) Infection of lumbar spine: (4) UTI (urinary tract infection): (1) Sepsis: Plan: Secondary to complicated UTI Urine culture grew E. coli which is pansensitive Has been on cefazolin and will continue Complicated by MSSA bacteremia Lumbar epidural phlegmon without any evidence of osteomyelitis Lumbar spine MRI: 1. Abnormal epidural enhancement within the lower lumbar and sacral canals. Mild lumbosacral prevertebral edema and enhancement. This is nonspecific but given the clinical history is suspicious for an infectious process with possible epidural phlegmon. No rim-enhancing fluid collection to suggest abscess. If persistent back pain, short-term follow-up lumbar spine MRI with and without contrast is recommended. 2. No evidence for discitis or osteomyelitis. 3. Central disc protrusion at L5-S1 which results in mild narrowing of the central canal and moderate narrowing of both lateral recesses. 4. 4 cm T1 hyperintense right adnexal lesion. This favors a hemorrhagic ovarian cyst or endometrioma. Appreciate orthospine input and recommendation No spinal tenderness and no signs of radiculopathy pain Denies any more back pain and overall pain is reasonably controlled Has been getting physical therapy and recommended home Detailed note from today's encounter-08/12/2022 Cannot go home with the PICC line due to history of IV drug abuser and no home health agency will take her due to the same reason She is not qualified to go to rehab but definitely she can go inpatient drug and alcohol rehab area which she refused to go Detailed discussion with the ID specialist in [place] and pharmacist in the hospital was done regarding possibility of intravenous Dalvance or even oral Zyvox Those are not FDA approved drugs for her bacteremia but it has been in the literature that people are using it and no data is available to see the effectiveness It will be a last resort for this patient as because he will sign out AMA which will be harmful for her medical condition We will discuss with her and then go from there-unfortunately patient left AMA and was brought in by the mother in the emergency room this afternoon Constipation Has not had bowel movements 41 Complaints of abdominal discomfort and pain this afternoon With significant anxiety CT scan did not show any obstruction last night KUB did not show an obstruction And following lactulose enema she has had bowel movements x2 Clinically much better today and did not have any more fever Continue with current bowel regimen MSSA bacteremia:Blood cultures 08/04: MSSA 08/05:pending Drug use, History of IV Drug use patient states she smokes meth last IV meth use 2 months ago as per patient UDS: (+) meth, marijuana monitor for withdrawal symptoms As needed Ativan ordered Transthoracic echocardiogram: No signs of vegetation Status post transesophageal echocardiogram showing small vegetation and tricuspid valve which does not require CT surgery input Appreciate cardiology input and recommendation Discussed with the ID specialist-we will need to continue IV cefazolin for 6 weeks Is still has been having fever occasionally Blood cultures x4 have been negative We will get chest x-ray to rule out any pneumonia-showed bibasilar infiltration could be secondary to pulmonary edema and/or pneumonia We will add intravenous doxycycline Spirometry Feeling much better following addition of doxycycline which will be continued for now Remains stable without any fever for the last more than 24 hours We will plan to put PICC line/ultrasound-guided line tomorrow and discharge the patient likely to a rehab given the history of IV drug abuse 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 Lovenox subcutaneous daily Full code Wants to go home which will be discussed with the disability case manager following recommendation from physical therapist Total Time Total Time Spent Total Time Spent (In Minutes): 30 minutes Discharge Plan Discharge Items Patient Disposition: Against Medical Advice Reason For Visit: SEPSIS Condition on Discharge: Fair Activity: As commented below Activity Comment: AMA Non-emergency contact: Primary Care Provider Follow-up/Referrals: Gus Blake DO [Primary Care Provider] - ( ) Pending Studies at Discharge: No Stand-Alone Forms: [facility] [place] [employer], Smoking Cessation Medications and DC Order Prescriptions: Continued buprenorphine-naloxone 8-2 mg tablet, sublingual 1 tab SUBLINGUAL BID Discharge Orders: Left Against Medical Advice (Routine); Ordered 08/12/22 Ordered By: Anthony Barraza Admission Data Admit Date/Time: 08/04/22 04:51 Attending Provider: Anthony Barraza Admit Provider: Oracio Esqueda Primary Care Provider: Gus Blake Other Providers: Oracio Esqueda ; Jens Apple Carlos M. ; Alexa Bajwa ; Addi Mcknight I. ; Aleks Tidwell II ; Светлана Pulliam ; Jacob Jang ; Todd Smith ; Nila Friedman ; Nelson Chapin ; Yash Mccoy ; Nehemiah Marinelli
== END 2022-08-12 16:07 | disposition left against medical advice (07) | DRG 871 ==
LOC: ED 00:22 → SUATTDRO 04:51 → 1E 04:51 → 2N 20:59

== ENCOUNTER 2022-08-12 14:29 | Inpatient (IN) ==
[2022-08-12 15:43] LABS: Basophils # (auto) 0.02 K/uL (0-0.2); Basophils % (auto) 0.2 %; Eosinophils # (auto) 0.08 K/uL (0-0.50); Eosinophils % (auto) 0.7 %; Hemoglobin 10.6 g/dl (12.0-16.0); Immature Granulocytes # (auto) 0.14 K/uL (0.01-0.20); Immature Granulocytes % (auto) 1.3 %; Lymphocytes % (auto) 21.6 %; Mean Corpuscular Hemoglobin 29.4 pg (25.0-34.0); Mean Corpuscular Hgb Conc 32.1 g/dL (32.0-36.0); Mean Corpuscular Volume 91.7 fL (80.0-100.0); Mean Platelet Volume 9.5 fL (9.4-12.4); Monocytes # (auto) 0.43 K/uL (0.11-0.59); Monocytes % (auto) 3.9 %; Neutrophils # (auto) 8.06 K/uL (1.40-6.50); Neutrophils % (auto) 72.3 %; Platelet Count 573 K/uL (130-400); RDW Coefficient of Variation 13.4 % (11.5-14.5); RDW Standard Deviation 45.3 fL (36.4-46.3); White Blood Count 11.13 K/ul (4.8-10.8)
[2022-08-12 15:53] LABS: INR 1.1 (0.9-1.1); Partial Thromboplastin Ratio 1.2; Partial Thromboplastin Time 33.8 Seconds (21.0-31.0); Prothrombin Time 11.2 Seconds (9.0-12.0)
[2022-08-12 16:01] LABS: Albumin Level 3.3 gm/dl (3.4-5.0); Bilirubin,Total 0.2 mg/dl (0.2-1.0); Calcium 9.2 mg/dl (8.5-10.1); Potassium 4.1 mmol/L (3.5-5.1)
[2022-08-12 16:07] LABS: Albumin Globulin Ratio 0.8 (0.9-2); BUN Creatinine Ratio 16.4 (10-20); Creatinine Clr Calc Pharmacy 93.2 ml/min; Est GFR (African American) 136.1 ml/min; Est GFR (Non-African American) 117.5 ml/min; Globulin 4.4 gm/dl (2.5-4.0); Total Protein 7.7 gm/dl (6.0-8.3)
[2022-08-12 16:10] LABS: Troponin I High Sensitivity 3.7 pg/ml (0-14)
[2022-08-12] MEDS ORDERED: ceFAZolin 2000MG 2,000 MG/15 ML SYR IV STA (16:10)
[2022-08-12 16:21] LABS: Pregnancy Test, Serum Negative (Negative)
[2022-08-12 16:44] LABS: Procalcitonin 3.43 ng/ml (0-0.5)
--- NOTE | 2022-08-12 18:41 | History & Physical Report ---
Date of Service August 12, 2022 Assessment & Plan (1) MSSA bacteremia: (2) Infective endocarditis of tricuspid valve: Plan: Admit to [facility] Patient presenting back to the hospital after eloping this afternoon while being treated for MSSA bacteremia and tricuspid valve endocarditis. On IV cefazolin 2 g q8h --started on 08/06/2022, will need for 6 weeks Case management to follow for dispo Per Dr. Barraza's progress note from earlier today: Cannot go home with the PICC line due to history of IV drug abuser and no home health agency will take her due to the same reason She is not qualified to go to rehab but definitely she can go inpatient drug and alcohol rehab area which she refused to go Detailed discussion with the ID specialist in [place] and pharmacist in the hospital was done regarding possibility of intravenous Dalvance or even oral Zyv ox Possible pneumonia Started on doxycycline on 08/09 for possible pneumonia Continue doxycycline (3) Back pain: Plan: Lumbar spine MRI question possible infectious process however patient was evaluated by spine Ortho who do not feel as though there is active infection present Back pain resolved (4) Chronic pain: (5) Drug abuse: Plan: On Suboxone Patient reports last IV methamphetamine use ~2 weeks ago DVT PROPHYLAXIS SQ Lovenox History of Present Illness Chief Complaint: Endocarditis Primary Care Provider: Gus Blake DO 37-year-old female with PMH chronic pain on Suboxone treatment, history of IV drug abuse, anxiety, mood disorder, PTSD, and other problems as below who presents to the ED after eloping from the hospital earlier this afternoon while being admitted for MSSA bacteremia and endocarditis. Patient admitted on 08/04 for sepsis due to UTI and back pain. Blood cultures subsequently grew MSSA. Urine culture grew E. coli. CASIE on 08/07 demonstrated a vegetation on the tricuspid valve. Lumbar spine MRI question possible signs of epidural infection however spine orthopedics was consulted who did not feel there was active osteomyelitis, discitis, or fluid collection. Patient has been receiving IV cefazolin and doxycycline was started on 08/09 for possible pneumonia. Patient reports she decided to elope from the hospital today because she does not want to go to a fpc facility to receive IV antibiotics. Patient reports she called an [employer] that took her home. Patient's mother insisted that she come back to the hospital for treatment of her endocarditis. Patient reports she is currently feeling well. Denies chest pain, shortness of breath, palpitations. No fevers or chills. Denies abdominal pain, nausea, vomiting, diarrhea. No urinary symptoms. In the ED, patient is hemodynamically stable. She was given IV cefazolin. Allergies Allergy/AdvReac Type Severity Reaction Status Date / Time No Known Allergies Allergy Unverified 08/04/22 01:17 Home Medications Medication Instructions Recorded Confirmed Type buprenorphine 8 mg-naloxone 2 mg 1 tab sublingual BID 08/04/22 08/12/22 History sublingual tablet Past Med/Surg History Medical History Drug abuse Infective endocarditis of tricuspid valve Mood disorder MSSA bacteremia Surgical History Hx of section Social History Smoking Status: Current every day smoker Tobacco Type: Cigarettes and E-cigarettes / Vaping Hx Alcohol Use: No Hx Substance Use: Yes Substance Use Type Other:: history of IV drug abuse. Patient states "I haven't used in awhile" Preferred Language: Hungarian Communication Ability: Effective Electrical Engineering Designer Required: No Beliefs That Will Affect Care: None Current Living Situation: Alone Feels Safe at Home: Yes Safety Concerns: Feels Safe At This Time Assistive Devices: None Review of Systems Review of Systems: ROS per HPI, all other systems reviewed and negative Physical Exam Constitutional: WD/WN, vitals as above Eyes: PERRL, conjunctivae normal, anicteric sclerae ENMT: external ear and nose normal, oropharynx normal Respiratory: normal respiratory effort, lungs clear to auscultation Cardiovascular: Rate/Rhythm: regular rate and regular rhythm Vessels: normal peripheral pulses Extremities: no edema Gastrointestinal (Abdomen): normal bowel sounds, soft, nontender, no hepatosplenomegaly Musculoskeletal: no cyanosis or clubbing, extremities motor strength 5/5 Skin: no rashes, warm and dry Neurologic: PERRL, EOMI, accommodation nl, no face palsy, no dysarthria Psychiatric: A+Ox3, euthymic affect Results & Data Results & Data ([facility]) Vital Signs (Past 12 Hours) Vital Signs Temp Pulse Resp BP Pulse Ox O2 Del Method 08/12/22 14:41 Room Air 08/12/22 14:36 36.5 C 86 20 106/67 99 Room Air Laboratory Results Short CBC 08/12/22 Range/Units 15:31 WBC 11.13 H (4.8-10.8) K/ul Hgb 10.6 L (12.0-16.0) g/dl Hct 33.0 L (37.0-47.0) % Plt Count 573 H (130-400) K/uL BMP 08/12/22 15:31 Sodium 138 Potassium 4.1 Chloride 104 Carbon Dioxide 29 BUN 10 Creatinine 0.61 Glucose 82 Calcium 9.2 Liver Function 08/12/22 Range/Units 15:31 Total Bilirubin 0.2 (0.2-1.0) mg/dl AST 18 (13-39) U/L ALT 10 (7-52) U/L Alkaline Phosphatase 95 (34-104) U/L Albumin 3.3 L (3.4-5.0) gm/dl Code Status & VTE Plan VTE Prophylaxis Plan VTE Prophylaxis will be ordered: Yes Supervising Physician Co-Signing Physician Notes Attending addendum: The patient was seen and examined in emergency room She left the hospital without letting anybody know and was brought in by her mom Urine tox screen has been negative and she did does not have any new symptoms She was started with intravenous cefazolin as before and also doxycycline for ongoing infection On examination No apparent distress at rest Hemodynamically stable Chestclear to auscultation bilaterally HeartS1-S2, regular Abdomenbenign Extremities-no edema Her labs, urine tox screen and medications reviewed She has MSSA bacteremia, infective endocarditis with history of IV drug abuse w ith We will need to continue with IV antibiotic for a total of 6 weeks Agree with assessment plan as outlined above by Jenni Barraza
[2022-08-12] MEDS ORDERED: ACETAMINOPHEN 325 MG TAB PO PRN (19:58)
[2022-08-12] MEDS ORDERED: ENOXAPARIN INJ 40 MG/0.4 ML SYR SQ SCH (20:00)
--- NOTE | 2022-08-12 20:49 | Emergency Department Note ---
Impression & Plan Infective endocarditis of tricuspid valve, MSSA bacteremia, Leukocytosis ED Provider Note NAME: CINDY BOCANEGRA AGE: 37 SEX: F ARRIVES VIA: Walk-In INFORMANT: Patient ED PROVIDER(S): Brant Gillette MD CHIEF COMPLAINT: Endocarditis PLAN: Disposition: Admit MEDICAL DECISION MAKING: The patient is a 37-year-old woman with a past medical history of IV drug abuse who presents to emergency department via walk-in for evaluation and readmission after she had eloped from her recent hospitalization which began on 08/04/2022 where she was diagnosed with endocarditis, bacteremia, as well as epidural phlegmon where she was treated empirically with cefepime and vancomycin with antibiotics subsequently de-escalated to cefazolin following MSSA cultures and pansensitive E. coli related to UTI. The patient reports she abruptly left several hours prior to returning due to feeling overwhelmed by her diagnosis and per her report being informed of the long treatment course for her condition which will last weeks and require her to be admitted to a rehab facility for IV antibiotics with port placement. Patient reports she arrived home where she encountered her mother who she reports is effective in "setting her straight" and redirected her to return to the emergency department to be admitted again for her treatment. She acknowledges that leaving earlier today was a mistake and is interested in being admitted again to complete her treatment. She gives permission to contact her mother at any point if she again attempts to leave or changes her mind. She does have children at home which she reports she wants to get healthy for her to be with. She denies any drug use or changes in her clinical condition since leaving the hospital several hours ago. On arrival the patient is no distress, afebrile with stable vital signs. She appears clinically dry. She is moving all extremities equally. Abdomen is benign. Lab work initiated via critical pathways. WBC 11.1K nonspecific. H/H similar to prior values earlier this morning. Platelets 573, similar to value this morning. Chemistry without metabolic acidosis. Electrolytes and LFTs unremarkable. hCG negative. Covid-19, RNA, NAAT test was negative. Patient was ordered for her 2 g dose of cefazolin. Case was discussed with Dr. Barraza, [facility] hospitalist, who who had managed the patient during her hospitalization today and accepts the patient for admission. Triage Nursing notes reviewed and agree them. Prior/outside medical records reviewed Vital Signs: reviewed Differential diagnosis: Sepsis, UTI, pneumonia, metabolic, electrolyte abnormalities, cardiac sources, intracerebral event, toxicologic, neurologic, as well as other pathologies. ER treatment provided: See below. Diagnostics interpreted by me: ECG: Normal sinus rhythm, 85 bpm, no ectopy, no overt ST elevation or depression, QTc 440, QRS 82. Cardiac Monitoring: An order for continuous cardiac monitoring was placed and demonstrated Normal sinus rhythm, 85 bpm, no ectopy. Laboratory studies: See below Imaging studies: See below Consultation(s): Dr. Barraza, [facility] hospitalist HPI: The patient is a 37-year-old woman with a past medical history of IV drug abuse who presents to emergency department via walk-in for evaluation and readmission after she had eloped from her recent hospitalization which began on 08/04/2022 where she was diagnosed with endocarditis, bacteremia, as well as epidural phlegmon where she was treated empirically with cefepime and vancomycin with antibiotics subsequently de-escalated to cefazolin following MSSA cultures and pansensitive E. coli related to UTI. The patient reports she abruptly left several hours prior to returning due to feeling overwhelmed by her diagnosis and per her report being informed of the long treatment course for her condition which will last weeks and require her to be admitted to a rehab facility for IV antibiotics with port placement. Patient reports she arrived home where she encountered her mother who she reports is effective in "setting her straight" and redirected her to return to the emergency department to be admitted again for her treatment. She acknowledges that leaving earlier today was a mistake and is interested in being admitted again to complete her treatment. She gives permission to contact her mother at any point if she again attempts to leave or changes her mind. She does have children at home which she reports she wants to get healthy for her to be with. She denies any drug use or changes in her clinical condition since leaving the hospital several hours ago. ROS: See above HPI for pertinent positives & negatives. A total of 10 systems reviewed and were otherwise negative. VITALS:See Below PHYSICAL EXAMINATION: GENERAL: Awake, alert, well-appearing, in no distress HENT: Normocephalic, atraumatic. Oropharynx with dry mucous membranes and otherwise unremarkable. EYES: Normal conjunctiva. Sclera non-icteric. NECK: Supple. No nuchal rigidity. FROM. No JVD. RESPIRATORY: Clear to auscultation. CARDIAC: Regular rate, normal rhythm. Extremities warm and well perfused. Pulses equal. ABDOMEN: Soft, non-distended. No tenderness to palpation. No rebound or guar ding. No masses. RECTAL: Deferred. MUSCULOSKELETAL: Chest examination reveals no tenderness. The back is symmetrical on inspection without obvious abnormality. There is no CVA tenderness to palpation. No joint edema. LOWER EXTREMITIES: Calves are equal size bilaterally and non-tender. No edema. No discoloration. NEURO: Normal sensorium. No sensory or motor deficits noted. SKIN: No rash or jaundice noted. Brant Gillette MD Past Med/Surg History Medical History Drug abuse Infective endocarditis of tricuspid valve Mood disorder MSSA bacteremia Surgical History Hx of section Social History Smoking Status: Current every day smoker Tobacco Type: Cigarettes and E-cigarettes / Vaping Hx Alcohol Use: No Hx Substance Use: Yes Substance Use Type Other:: history of IV drug abuse. Patient states "I haven't used in awhile" Preferred Language: Telugu Communication Ability: Effective Logistical Engineer Required: No Beliefs That Will Affect Care: None Current Living Situation: Alone Feels Safe at Home: Yes Safety Concerns: Feels Safe At This Time Assistive Devices: None Allergies Allergies Allergy/AdvReac Type Severity Reaction Status Date / Time No Known Allergies Allergy Unverified 08/04/22 01:17 Home Meds Home Medications Medication Instructions Recorded Confirmed buprenorphine 8 mg-naloxone 2 mg 1 tab sublingual BID 08/04/22 08/12/22 sublingual tablet Results & Data (ED) Vital Signs Vital Signs - 24 hr 08/12/22 14:36 08/12/22 14:41 Temperature 36.5 C Temperature Source Temporal Artery Scan Pulse Rate 86 Respiratory Rate 20 Respiratory Effort / Characteristics Non-Labored Spontaneous Respiratory Depth Normal Respiratory Pattern Regular Blood Pressure 106/67 Blood Pressure Mean 80 Pulse Oximetry 99 Oxygen Delivery Method Room Air Room Air Sepsis Recent Fever Within 48 Hours No Sepsis New/Unexplained Change in Mental Status No Sepsis Action Taken by Nursing No Action Required Laboratory Data Attestation: I reviewed the patient's lab results. 08/12/22 15:31 08/12/22 15:31 Lab Results 08/12/22 08/12/22 08/12/22 Range/Units 15:31 15:31 15:31 WBC 11.13 H (4.8-10.8) K/ul RBC 3.60 L (4.20-5.40) M/uL Hgb 10.6 L (12.0-16.0) g/dl Hct 33.0 L (37.0-47.0) % MCV 91.7 (80.0-100.0) fL MCH 29.4 (25.0-34.0) pg MCHC 32.1 (32.0-36.0) g/dL RDW Std Deviation 45.3 (36.4-46.3) fL RDW Coeff of Sanju 13.4 (11.5-14.5) % Plt Count 573 H (130-400) K/uL MPV 9.5 (9.4-12.4) fL Immature Gran % (Auto) 1.3 % Neut % (Auto) 72.3 % Lymph % (Auto) 21.6 % Marion % (Auto) 3.9 % Eos % (Auto) 0.7 % Baso % (Auto) 0.2 % Neut # (Auto) 8.06 H (1.40-6.50) K/uL Lymph # (Auto) 2.40 (1.2-3.4) K/uL Marion # (Auto) 0.43 (0.11-0.59) K/uL Eos # (Auto) 0.08 (0-0.50) K/uL Baso # (Auto) 0.02 (0-0.2) K/uL Immature Gran # (Auto) 0.14 (0.01-0.20) K/uL PT 11.2 (9.0-12.0) Seconds INR 1.1 (0.9-1.1) APTT 33.8 H (21.0-31.0) Seconds PTT Ratio 1.2 Sodium 138 (136-145) mmol/L Potassium 4.1 (3.5-5.1) mmol/L Chloride 104 (98-107) mmol/L Carbon Dioxide 29 (21-32) mmol/L Anion Gap 5 (3-11) BUN 10 (6-23) mg/dl Creatinine 0.61 (0.6-1.2) mg/dl Est Cr Clr Drug Dosing 93.2 ml/min Est GFR ( Amer) 136.1 ml/min Est GFR (Non-Af Amer) 117.5 ml/min BUN/Creatinine Ratio 16.4 (10-20) Glucose 82 (70-99(Fasting)) mg/dl Calcium 9.2 (8.5-10.1) mg/dl Magnesium 2.0 (1.7-2.4) mg/dl Total Bilirubin 0.2 (0.2-1.0) mg/dl AST 18 (13-39) U/L ALT 10 (7-52) U/L Alkaline Phosphatase 95 (34-104) U/L Troponin I High Sens 3.7 (0-14) pg/ml Total Protein 7.7 (6.0-8.3) gm/dl Albumin 3.3 L (3.4-5.0) gm/dl Globulin 4.4 H (2.5-4.0) gm/dl Albumin/Globulin Ratio 0.8 L (0.9-2) Procalcitonin (0-0.5) ng/ml HCG, Qual (Negative) 08/12/22 Range/Units 15:31 WBC (4.8-10.8) K/ul RBC (4.20-5.40) M/uL Hgb (12.0-16.0) g/dl Hct (37.0-47.0) % MCV (80.0-100.0) fL MCH (25.0-34.0) pg MCHC (32.0-36.0) g/dL RDW Std Deviation (36.4-46.3) fL RDW Coeff of Sanju (11.5-14.5) % Plt Count (130-400) K/uL MPV (9.4-12.4) fL Immature Gran % (Auto) % Neut % (Auto) % Lymph % (Auto) % Marion % (Auto) % Eos % (Auto) % Baso % (Auto) % Neut # (Auto) (1.40-6.50) K/uL Lymph # (Auto) (1.2-3.4) K/uL Marion # (Auto) (0.11-0.59) K/uL Eos # (Auto) (0-0.50) K/uL Baso # (Auto) (0-0.2) K/uL Immature Gran # (Auto) (0.01-0.20) K/uL PT (9.0-12.0) Seconds INR (0.9-1.1) APTT (21.0-31.0) Seconds PTT Ratio Sodium (136-145) mmol/L Potassium (3.5-5.1) mmol/L Chloride (98-107) mmol/L Carbon Dioxide (21-32) mmol/L Anion Gap (3-11) BUN (6-23) mg/dl Creatinine (0.6-1.2) mg/dl Est Cr Clr Drug Dosing ml/min Est GFR ( Amer) ml/min Est GFR (Non-Af Amer) ml/min BUN/Creatinine Ratio (10-20) Glucose (70-99(Fasting)) mg/dl Calcium (8.5-10.1) mg/dl Magnesium (1.7-2.4) mg/dl Total Bilirubin (0.2-1.0) mg/dl AST (13-39) U/L ALT (7-52) U/L Alkaline Phosphatase (34-104) U/L Troponin I High Sens (0-14) pg/ml Total Protein (6.0-8.3) gm/dl Albumin (3.4-5.0) gm/dl Globulin (2.5-4.0) gm/dl Albumin/Globulin Ratio (0.9-2) Procalcitonin 3.43 H (0-0.5) ng/ml HCG, Qual Negative (Negative) Administered Medications Acetaminophen (Acetaminophen 325 Mg Tab) 650 mg PO Q4H PRN PRN Reason: pain/fever Stop: 09/11/22 19:57 Last Admin: 08/12/22 23:50 Dose: 650 mg Documented By: LY Buprenorphine/Naloxone (Buprenorphine/Naloxone 8/2 Mg Tab) 1 tab SL BID [facility] Stop: 09/11/22 20:59 Last Admin: 08/12/22 22:16 Dose: 1 tab Documented By: LY Doxycycline Hyclate (Doxycycline Hyclate 100 Mg Cap) 100 mg PO BID [facility]; Protocol Stop: 08/19/22 20:59 Last Admin: 08/12/22 22:17 Dose: 100 mg Documented By: JERARDO Enoxaparin Sodium (Enoxaparin Inj 40 Mg/0.4 Ml Syr) 40 mg SQ Q24H RICKIE Stop: 09/11/22 19:59 Last Admin: 08/12/22 22:17 Dose: 40 mg Documented By: JERARDO Cefazolin Sodium (Ancef 2000mg) 2,000 mg in 15 mls @ 3.75 mls/min IV Q8H RICKIE Stop: 08/27/22 00:00 Last Admin: 08/12/22 23:47 Dose: 3.75 mls/min Documented By: JERARDO Discontinued Medications Cefazolin Sodium (Ancef 2000mg) 2,000 mg in 15 mls @ 3.75 mls/min IV NOW STA Stop: 08/12/22 16:13 Last Admin: 08/12/22 16:30 Dose: 3.75 mls/min Documented By: JOHN Lorazepam (Lorazepam 0.5 Mg Tab) 0.5 mg PO NOW STA Stop: 08/13/22 02:11 Last Admin: 08/13/22 02:13 Dose: 0.5 mg Documented By: JERARDO Lorazepam (Lorazepam 0.5 Mg Tab) Confirm Administered Dose 0.5 mg .ROUTE .STK-M ED ONE Stop: 08/13/22 02:13 Last Admin: 08/13/22 02:13 Dose: Not Given Documented By: JERARDO Discharge Plan Visit Data Chief Complaint: Illness Stated Complaint: INFECTION IN HEART ED Provider: Brant Gillette Discharge Problem: Infective endocarditis of tricuspid valve, MSSA bacteremia, Leukocytosis Patient Disposition: Admitted As Inpatient Discharge Instructions Interventions: ED Discharge Assessment Last Done: 08/12/22 19:57
[2022-08-12 22:08] LABS: Amphetamines+Metham, Urine Neg (Neg); Barbiturates, Urine Neg (Neg); Benzodiazepine, Urine Neg (Neg); Cocaine, Urine Neg (Neg); MDMA (Ecstacy), Urine Neg (Neg); Methadone, Urine Neg (Neg); Opiate, Urine Neg (Neg); Phencyclidine, Urine Neg (Neg)
[2022-08-12] MEDS: BUPRENORPHINE/NALOXONE 8/2 MG TAB SL SCH (22:16)
[2022-08-12] MEDS: DOXYCYCLINE HYCLATE 100 MG CAP PO SCH (22:17)
[2022-08-12] MEDS: ceFAZolin 2000MG 2,000 MG/15 ML SYR IV SCH (23:47)
[2022-08-13] MEDS ORDERED: LORazepam 0.5 MG TAB PO STA (02:10)
[2022-08-13] MEDS ORDERED: LORazepam 0.5 MG TAB ONE (02:12)
[2022-08-13 07:05] LABS: Hematocrit (blood only) 27.4 % (37.0-47.0); Hemoglobin 9.1 g/dl (12.0-16.0); Mean Corpuscular Hemoglobin 29.5 pg (25.0-34.0); Mean Corpuscular Hgb Conc 33.2 g/dL (32.0-36.0); Mean Platelet Volume 9.3 fL (9.4-12.4); Platelet Count 558 K/uL (130-400); RDW Coefficient of Variation 13.4 % (11.5-14.5); RDW Standard Deviation 43.4 fL (36.4-46.3); Red Blood Count 3.08 M/uL (4.20-5.40); White Blood Count 8.15 K/ul (4.8-10.8)
[2022-08-13 07:54] LABS: Anion Gap 4 (3-11); BUN Creatinine Ratio 22.2 (10-20); Blood Urea Nitrogen 10 mg/dl (6-23); Calcium 9.2 mg/dl (8.5-10.1); Carbon Dioxide 29 mmol/L (21-32); Chloride 107 mmol/L (98-107); Creatinine Clr Calc Pharmacy 126.4 ml/min; Est GFR (African American) > 150.0 ml/min; Est GFR (Non-African American) 129.8 ml/min; Glucose 101 mg/dl (70-99(Fasting)); Potassium 4.5 mmol/L (3.5-5.1); Sodium 140 mmol/L (136-145)
--- NOTE | 2022-08-13 08:08 | Electrocardiogram Report ---
Test Reason : Blood Pressure : / mmHG Vent. Rate : 085 BPM Atrial Rate : 085 BPM P-R Int : 132 ms QRS Dur : 082 ms QT Int : 370 ms P-R-T Axes : 055 081 051 degrees QTc Int : 440 ms Normal sinus rhythm Normal ECG When compared with ECG of 04-AUG-2022 00:32, No significant change was found Confirmed by Elder Sultana ([id number]) on 08/13/2022 8:07:56 AM Referred By: Confirmed By:Elder Sultana
[2022-08-13] MEDS: BUPRENORPHINE/NALOXONE 8/2 MG TAB SL SCH (09:31)
[2022-08-13] MEDS: DOXYCYCLINE HYCLATE 100 MG CAP PO SCH (09:31)
[2022-08-13] MEDS: ceFAZolin 2000MG 2,000 MG/15 ML SYR IV SCH ×2 (09:31→18:05)
--- NOTE | 2022-08-13 11:40 | Hospitalist Progress Note ---
Date of Service August 13, 2022 Assessment & Plan (1) MSSA bacteremia: (2) Infective endocarditis of tricuspid valve: Plan: Sepsis - resolved MSSA bacteremia Infective endocarditis of tricuspid valve Possible epidural phlegmon - -abnormal MRI concerning for epidural enhancement within the lower lumbar and sacral canals, mild lumbar sacral prevertebral edema which is nonspecific but given clinical history could be an epidural phlegmon. IVDA - last used 2 months ago (UDS on previous admission + for meth and marijuana, UDS 08/12 negative) Admit to [facility] Patient admitted from [facility] to 08/12/2022 and then eloped from hospital subsequently returning back to ED via mother. She was readmitted in the afternoon of 08/12/2022 for further complete meant of treatment and disposition. She continues on IV cefazolin 2 g every 8, blood culture negative since 08/07/2022, will need 6 weeks of IV therapy Per Dr. Barraza's progress note from earlier 08/12: "Cannot go home with the PICC line due to history of IV drug abuser and no home health agency will take her due to the same reason She is not qualified to go to rehab but definitely she can go inpatient drug and alcohol rehab area which she refused to go Detailed discussion with the ID specialist in [place] and pharmacist in the hospital was done regarding possibility of intravenous Dalvance or even oral Zyvox" Patient has a complicated disposition course due to known IV drug abuse. Unfortunately per case management patient is not a candidate for outpatient infusion therapy due to drug use history. She is also not a candidate for rehab due to lack of necessity given functional status. She is not amendable to drug rehab and this is not an option for antibiotic therapy. Pt is a flight risk and at risk for leaving AMA which is detrimental to her health and could result in . Numerous discussions have been had with pharmacy and case management as well as patient. Patient is adamant to be discharged as soon as possible and will not remain hospitalized to complete a total of 6 weeks of antibiotics which is recommended for cure. After further discussion with pharmacy/ID a possible option would be outpatient Dalvance therapy administered at [facility]. Patient was made aware that although IV Dalvance therapy has been used in IV drug users with bacteremia it is a very small sample size (20 patients) and only 44% of patients receiving cure. There is a very real possibility that she may not receive cure for endocarditis or lumbar infection and if this were the case she may require further treatment and risks would include return of symptoms/bacteremia, worsening endocarditis or lumbar infection and even . She is agreeable to these risks. This is not FDA approved and she is aware of this. It will require prior auth. She will need follow up with cardiology for clearance of endocarditis She will also need repeat MRI at completion of antibiotic therapy to determine resolution of possible phlegmon Per Dr. Apple service they recommend f/u with orthopedic spine at [facility] Will work with pharmacy and case management to obtain authorization for Dalvance therapy. Possible pneumonia Started on doxycycline on 2/3 for possible pneumonia Continue doxycycline and complete course place on probiotic Complicated UTI urine culture grew e.coli, pansensitive tx complete (3) Back pain: Plan: Lumbar spine MRI: 1. Abnormal epidural enhancement within the lower lumbar and sacral canals. Mild lumbosacral prevertebral edema and enhancement. This is nonspecific but given the clinical history is suspicious for an infectious process with possible epidural phlegmon. No rim-enhancing fluid collection to suggest abscess. If persistent back pain, short-term follow-up lumbar spine MRI with and without contrast is recommended. 2. No evidence for discitis or osteomyelitis. 3. Central disc protrusion at L5-S1 which results in mild narrowing of the central canal and moderate narrowing of both lateral recesses. 4. 4 cm T1 hyperintense right adnexal lesion. This favors a hemorrhagic ovarian cyst or endometrioma. Appreciate orthospine input and recommendation No spinal tenderness and no signs of radiculopathy pain f/u as OP (4) Chronic pain: (5) Drug abuse: Plan: Known IVDA per previous notes, last use of IVDA was either 2 weeks ago or 2 months ago UDS on previous admit + for meth and marijuana negative yesterday DVT PROPHYLAXIS SQ Lovenox Plan Patient was seen and examined in collaboration with Dr. Barraza, please see add endum A total of 75 minutes were spent with greater than 50% of that time face to face with the patient, personally reviewing all current laboratories, imaging studies, past medication reconciliation, outpatient chart review, and discussion with specialists to collaborate care for the patient with attending. Also time was spent collaborating with pharmacy and case management for difficult dispos ition. Please see attending documentation for corrections and/or additions. Admission and Anticipated Discharge Date Admission Date: August 12, 2022 Supervising Physician Co-Signing Physician Notes Attending addendum: The patient was seen and examined in medical floor He has been sleepy as usual but denies any significant symptoms No more fever and no chills On examination Lying in bed comfortably Hemodynamically stable Chest-clear to auscultate bilateral Heart-S1-S2, regular Abdomen-benign Extremities-negative for any edema His labs, medications reviewed Has MSSA bacteremia with endocarditis Has had extensive discussion with the pharmacist and the ID specialist in [place] Discussed with the patient about continued treatment with Dalvance as an outpatient Likely discharge in a day or 2 Dr Tyshawn Flores This is a 37-year-old female who was seen in room 386 bed 1. She is seen in follow-up for sepsis in setting of bacteremia due to complicated UTI, lumbar epidural phlegmon and tricuspid valve endocarditis in setting of history of IV drug use. Currently on IV cefazolin therapy. Patient has been hospitalized from 08/04/2022 to 08/12/2022. Unfortunately yesterday patient eloped and then return to hospital by mother. Patient has a complicated disposition course due to known IV drug abuse. Unfortunately per case management patient is not a candidate for outpatient infusion therapy due to drug use history. She is also not a candidate for rehab due to lack of necessity given functional status. She is not amendable to drug rehab and this is not an option for antibiotic therapy. Pt is a flight risk and at risk for leaving AMA which is detrimental to her health. Numerous discussions have been had with pharmacy and case management. Patient is adamant to be discharged as soon as possible and will not remain hospitalized to complete a total of 6 weeks of antibiotics. This was stated by her. After further discussion with pharmacy a possible option would be outpatient Dalvance therapy administered at [facility]. Patient was made aware that although IV Dalvance therapy has been used in IV drug users with bacteremia and is a very small sample size and only 44% of patients receiving care. There is a very real possibility that she may not receive care for endocarditis or lumbar infection and if this were the case she may require further treatment and risks would include return of symptoms, worsening endocarditis or lumbar infection and even . She is agreeable to these risks. Review of Systems Review of Systems: All systems reviewed & are unremarkable except as noted in HPI & below Physical Exam Physical Exam: Gen: WD/WN, lying in bed, NAD, A&O x3, makes eye HEENT: Normocephalic, atraumatic, conjunctivae moist, sclerae anicteric, mucous membranes moist. Lung: Clear to Auscultation bilaterally, no wheezes/rales/rhonchi Heart: Regular rate, regular rhythm, no murmurs, rubs, or gallops Abdomen: Soft, NT, ND +BS x 4 Extremities: No edema right upper extremity IV site noted Skin: Warm, no rash, negative turgor. Results & Data Results & Data ([facility]) Vital Signs (Past 12 Hours) Vital Signs Temp Pulse Resp BP Pulse Ox O2 Del Method 08/13/22 08:55 101/54 L 08/13/22 08:04 86/41 L 08/13/22 07:30 36.5 C 72 16 94 Room Air Laboratory Results Short CBC 08/12/22 08/13/22 Range/Units 15:31 06:53 WBC 11.13 H 8.15 (4.8-10.8) K/ul Hgb 10.6 L 9.1 L (12.0-16.0) g/dl Hct 33.0 L 27.4 L (37.0-47.0) % Plt Count 573 H 558 H (130-400) K/uL BMP 08/12/22 08/13/22 15:31 06:53 Sodium 138 140 Potassium 4.1 4.5 Chloride 104 107 Carbon Dioxide 29 29 BUN 10 10 Creatinine 0.61 0.45 L Glucose 82 101 H Calcium 9.2 9.2 Liver Function 08/12/22 Range/Units 15:31 Total Bilirubin 0.2 (0.2-1.0) mg/dl AST 18 (13-39) U/L ALT 10 (7-52) U/L Alkaline Phosphatase 95 (34-104) U/L Albumin 3.3 L (3.4-5.0) gm/dl Medications Administered Current Inpatient Medications Acetaminophen (Acetaminophen 325 Mg Tab) 650 mg PO Q4H PRN PRN Reason: pain/fever Stop: 09/11/22 19:57 Last Admin: 08/12/22 23:50 Dose: 650 mg Buprenorphine/Naloxone (Buprenorphine/Naloxone 8/2 Mg Tab) 1 tab SL BID RICKIE Stop: 09/11/22 20:59 Last Admin: 08/13/22 09:31 Dose: 1 tab Doxycycline Hyclate (Doxycycline Hyclate 100 Mg Cap) 100 mg PO BID [facility]; Protocol Stop: 08/19/22 20:59 Last Admin: 08/13/22 09:31 Dose: 100 mg Enoxaparin Sodium (Enoxaparin Inj 40 Mg/0.4 Ml Syr) 40 mg SQ Q24H [facility] Stop: 09/11/22 19:59 Last Admin: 08/12/22 22:17 Dose: 40 mg Cefazolin Sodium (Ancef 2000mg) 2,000 mg in 15 mls @ 3.75 mls/min IV Q8H [facility] Stop: 08/27/22 00:00 Last Admin: 08/13/22 09:31 Dose: 3.75 mls/min
[2022-08-13] MEDS ORDERED: SACCHAROMYCES BOULARDII 250 MG CAP PO SCH (11:45)
--- NOTE | 2022-08-13 14:57 | Hospitalist Progress Note ---
Date of Service August 13, 2022 Assessment & Plan Admission and Anticipated Discharge Date Admission Date: August 12, 2022 Supervising Physician Co-Signing Physician Notes Attending addendum: The patient was seen and examined in medical floor He has been sleepy as usual but denies any significant symptoms No more fever and no chills On examination Lying in bed comfortably Hemodynamically stable Chest-clear to auscultate bilateral Heart-S1-S2, regular Abdomen-benign Extremities-negative for any edema His labs, medications reviewed Has MSSA bacteremia with endocarditis Has had extensive discussion with the pharmacist and the ID specialist in [place] Discussed with the patient about continued treatment with Dalvance as an outpatient Likely discharge in a day or 2 Dr Tyshawn Barraza Results & Data Results & Data ([facility]) Vital Signs (Past 12 Hours) Vital Signs Temp Pulse Resp BP Pulse Ox O2 Del Method 08/13/22 08:55 101/54 L 08/13/22 08:04 86/41 L 08/13/22 07:30 36.5 C 72 16 94 Room Air
[2022-08-13] MEDS ORDERED: LORazepam 2 MG/1 ML VIAL IV STA (19:42)
--- NOTE | 2022-08-14 14:20 | Communication Note ---
Date of Service: August 14, 2022 Pt Signed out AMA evening on 08/13/22. Dalvance therapy was in the pre approval process and was not able to be complete prior to patient leaving. Discussion was had with Pharmacy regarding dosing. This was also coordinated with [facility] ID Dr. Juarez. IF pt returns dosing and frequency for Dalvance is as follows: Dalbavancin 1500 mg IV x1 (day 1) Dalbavancin 1000 mg IV (days 15 and 29). Lucien Marin PA-C Attending addendum; I have noted and agree with it. DR Tyshawn Barraza
== END 2022-08-13 20:22 | disposition left against medical advice (07) | DRG 871 ==
LOC: ED 14:29 → EDINP 16:38 → 3N 21:16

== ENCOUNTER 2022-08-16 18:48 | Inpatient (IN) ==
--- NOTE | 2022-08-16 22:20 | Emergency Department Note ---
Impression & Plan Endocarditis ADMIT ED Provider Note HPI: The patient is a 37-year-old female with history of infective endocarditis of the mitral valve, IV drug use, presents to the emergency department for admission after being evaluated today as an outpatient. Patient was admitted to the hospital earlier this month, left AMA on 08/13 as she states she was feeling anxious. Patient presents today with her mother and boyfriend at the bedside, mother is providing most of the history, states that the patient is to be readmitted for IV antibiotic therapy. Patient is afebrile and hemodynamically stable on arrival. ROS: - Per HPI *Outpatient medications and allergy history reviewed. *Pertinent external medical records reviewed. PE: General: Alert HEENT: Normocephalic, trachea midline Eyes: Extraocular eye movement is intact, no scleral erythema Pulmonary: Clear to auscultation bilaterally, no wheezing Cardio: Regular rate and rhythm GI: Abdomen is soft, nontender : No suprapubic tenderness MSK: No evidence of trauma or malformation of the extremities, no edema Skin: No evidence of rash Neuro: Alert, no focal deficits Psychiatric: Cooperative director communications: (As interpreted by myself): - An order was placed for continuous cardiac monitoring - Patient was noted to be in sinus rhythm with rate of 70 EKG: (As interpreted by myself): Rate: 80 Rhythm: Normal sinus rhythm Intervals: Within normal limits ST changes: No ST elevation Time: 2345 Medical Decision Making: Patient presented to the emergency department for admission for infective end ocarditis. Patient signed out AMA on 08/13, she presents today with her mother after being seen by her outpatient providers today and advised to come back to the ED for admission. Shortly after the patient arrived in medical records were reviewed, I did contact the on-call hospitalist for [facility], Dr. Cross, and further management including choice of administration of antibiotic will be deferred to the hospitalist service per his preference. Patient's lab work does not show any significant leukocytosis, lactic acid is within normal limits, troponin is negative, she is afebrile on arrival, she is hemodynamically stable, she is not tachycardic, she is saturating well on room air. I discussed admission with the patient and her mother at the bedside, they are in agreement for admission. Patient was placed for admission to the hospitalist service in stable condition for further management and antibiotic initiation. Consultants: [facility]. [facility] hospitalist Disposition discussion held by myself with: Patient and mother at the bedside Diagnosis: 1. Infective endocarditis of the mitral valve 2. History of IV drug use Disposition: Admission Jacob Austin DO Emergency Medicine Past Med/Surg History Medical History Drug abuse Infective endocarditis of tricuspid valve Mood disorder MSSA bacteremia Surgical History Hx of section Social History Smoking Status: Current every day smoker Tobacco Type: Cigarettes and E-cigarettes / Vaping Hx Alcohol Use: No Hx Substance Use: Yes Substance Use Type Other:: history of IV drug abuse. Patient states "I haven't used in awhile" Preferred Language: Mongolian Communication Ability: Effective Costume Rental Clerk Required: No Beliefs That Will Affect Care: None Current Living Situation: Alone Feels Safe at Home: Yes Assistive Devices: None Allergies Allergies Allergy/AdvReac Type Severity Reaction Status Date / Time No Known Allergies Allergy Unverified 08/04/22 01:17 Home Meds Home Medications Medication Instructions Recorded Confirmed buprenorphine 8 mg-naloxone 2 mg 1 tab sublingual BID 08/04/22 08/16/22 sublingual tablet Results & Data (ED) Vital Signs Vital Signs - 24 hr 08/16/22 19:19 08/16/22 22:42 08/16/22 23:22 Temperature 36.9 C Temperature Source Temporal Artery Scan Pulse Rate 95 H 97 H Pulse Rate [Apical] 85 Pulse Rhythm Regular Pulse Rhythm [Apical] Regular Pulse Strength Normal Pulse Strength [Apical] Normal Respiratory Rate 20 17 18 Respiratory Effort / Characteristics Non-Labored Non-Labored Respiratory Depth Normal Normal Respiratory Pattern Regular Regular Blood Pressure 124/77 108/73 Blood Pressure [Right Arm] 102/64 Blood Pressure Mean 92 84 Blood Pressure Mean [Right Arm] 76 Blood Pressure Position Sitting Pulse Oximetry 98 98 Oxygen Delivery Method Room Air Room Air Sepsis Recent Fever Within 48 Hours No Sepsis New/Unexplained Change in Mental Status No Sepsis Action Taken by Nursing No Action Required Laboratory Data 08/16/22 23:06 08/16/22 23:06 Lab Results 08/16/22 08/16/2223 Range/Units 22:38 23:06 23:06 WBC 9.29 (4.8-10.8) K/ul RBC 3.06 L (4.20-5.40) M/uL Hgb 9.1 L (12.0-16.0) g/dl Hct 28.3 L (37.0-47.0) % MCV 92.5 (80.0-100.0) fL MCH 29.7 (25.0-34.0) pg MCHC 32.2 (32.0-36.0) g/dL RDW Std Deviation 45.4 (36.4-46.3) fL RDW Coeff of Sanju 13.4 (11.5-14.5) % Plt Count 780 H (130-400) K/uL MPV 9.7 (9.4-12.4) fL Immature Gran % (Auto) 0.6 % Neut % (Auto) 61.8 % Lymph % (Auto) 30.1 % [place] % (Auto) 6.2 % Eos % (Auto) 1.0 % Baso % (Auto) 0.3 % Neut # (Auto) 5.73 (1.40-6.50) K/uL Lymph # (Auto) 2.80 (1.2-3.4) K/uL [place] # (Auto) 0.58 (0.11-0.59) K/uL Eos # (Auto) 0.09 (0-0.50) K/uL Baso # (Auto) 0.03 (0-0.2) K/uL Immature Gran # (Auto) 0.06 (0.01-0.20) K/uL Sodium 137 (136-145) mmol/L Potassium 4.3 (3.5-5.1) mmol/L Chloride 102 (98-107) mmol/L Carbon Dioxide 30 (21-32) mmol/L Anion Gap 5 (3-11) BUN 13 (6-23) mg/dl Creatinine 0.54 L (0.6-1.2) mg/dl Est Cr Clr Drug Dosing 104.8 ml/min Est GFR ( Amer) 141.7 ml/min Est GFR (Non-Af Amer) 122.3 ml/min BUN/Creatinine Ratio 24.1 H (10-20) Glucose 74 (70-99(Fasting)) mg/dl Lactate (0.4-2.0) mmol/L Calcium 9.0 (8.5-10.1) mg/dl Magnesium 1.9 (1.7-2.4) mg/dl Total Bilirubin 0.2 (0.2-1.0) mg/dl Direct Bilirubin TNP AST 24 (13-39) U/L ALT 18 (7-52) U/L Alkaline Phosphatase 70 (34-104) U/L Troponin I High Sens < 2.3 (0-14) pg/ml Total Protein 7.5 (6.0-8.3) gm/dl Albumin 3.4 (3.4-5.0) gm/dl Procalcitonin (0-0.5) ng/ml SARS-CoV-2, RNA, NAAT NEGATIVE (NEGATIVE) 08/16/22 08/16/22 Range/Units 23:06 23:52 WBC (4.8-10.8) K/ul RBC (4.20-5.40) M/uL Hgb (12.0-16.0) g/dl Hct (37.0-47.0) % MCV (80.0-100.0) fL MCH (25.0-34.0) pg MCHC (32.0-36.0) g/dL RDW Std Deviation (36.4-46.3) fL RDW Coeff of Sanju (11.5-14.5) % Plt Count (130-400) K/uL MPV (9.4-12.4) fL Immature Gran % (Auto) % Neut % (Auto) % Lymph % (Auto) % [place] % (Auto) % Eos % (Auto) % Baso % (Auto) % Neut # (Auto) (1.40-6.50) K/uL Lymph # (Auto) (1.2-3.4) K/uL [place] # (Auto) (0.11-0.59) K/uL Eos # (Auto) (0-0.50) K/uL Baso # (Auto) (0-0.2) K/uL Immature Gran # (Auto) (0.01-0.20) K/uL Sodium (136-145) mmol/L Potassium (3.5-5.1) mmol/L Chloride (98-107) mmol/L Carbon Dioxide (21-32) mmol/L Anion Gap (3-11) BUN (6-23) mg/dl Creatinine (0.6-1.2) mg/dl Est Cr Clr Drug Dosing ml/min Est GFR ( Amer) ml/min Est GFR (Non-Af Amer) ml/min BUN/Creatinine Ratio (10-20) Glucose (70-99(Fasting)) mg/dl Lactate 1.0 (0.4-2.0) mmol/L Calcium (8.5-10.1) mg/dl Magnesium (1.7-2.4) mg/dl Total Bilirubin (0.2-1.0) mg/dl Direct Bilirubin AST (13-39) U/L ALT (7-52) U/L Alkaline Phosphatase (34-104) U/L Troponin I High Sens (0-14) pg/ml Total Protein (6.0-8.3) gm/dl Albumin (3.4-5.0) gm/dl Procalcitonin 0.16 (0-0.5) ng/ml SARS-CoV-2, RNA, NAAT (NEGATIVE) Administered Medications Sodium Chloride (Nss 1000ml) 1,000 mls @ 100 mls/hr IV .Q10H STA Stop: 08/17/22 10:38 Last Admin: 08/17/22 00:48 Dose: 100 mls/hr Documented By: DOMONIQUE Discontinued Medications Cefazolin Sodium (Ancef 2000mg) 2,000 mg in 15 mls @ 3.75 mls/min IV NOW STA Stop: 08/16/22 23:07 Last Admin: 08/17/22 00:12 Dose: 3.75 mls/min Documented By: DOMONIQUE Ketorolac Tromethamine (Ketorolac Tromethamine 15 Mg/Ml Vial) 15 mg IV NOW STA Stop: 08/16/22 23:29 Last Admin: 08/16/22 23:47 Dose: 15 mg Documented By: DOMONIQUE Nicotine (Nicotine 14 Mg/24 Hr Patch) 14 mg TD ONE STA Stop: 08/17/22 00:58 Last Admin: 08/17/22 01:24 Dose: 14 mg Documented By: DOMONIQUE Discharge Plan Visit Data Chief Complaint: Need IV Start Stated Complaint: REF BY DOC, INFECTION SPINE/HEART, TO BE ADMIT ED Provider: Jacob Austin Discharge Problem: Endocarditis Patient Disposition: Admitted As Inpatient Discharge Instructions Interventions: ED Discharge Assessment Last Done: 08/17/22 01:44
[2022-08-16] MEDS ORDERED: ceFAZolin 2000MG 2,000 MG/15 ML SYR IV STA (23:04)
[2022-08-16] MEDS ORDERED: hydrOXYzine HCl 10 MG TAB PO PRN (23:26)
[2022-08-16] MEDS ORDERED: KETOROLAC TROMETHAMINE 15 MG/ML VIAL IV STA (23:28)
[2022-08-17] LABS: Basophils # (auto) 0.03 K/uL (0-0.2); Basophils % (auto) 0.3 %; Eosinophils # (auto) 0.09 K/uL (0-0.50); Hematocrit (blood only) 28.3 % (37.0-47.0); Hemoglobin 9.1 g/dl (12.0-16.0); Immature Granulocytes # (auto) 0.06 K/uL (0.01-0.20); Immature Granulocytes % (auto) 0.6 %; Lymphocytes % (auto) 30.1 %; Mean Corpuscular Hemoglobin 29.7 pg (25.0-34.0); Mean Corpuscular Hgb Conc 32.2 g/dL (32.0-36.0); Mean Corpuscular Volume 92.5 fL (80.0-100.0); Mean Platelet Volume 9.7 fL (9.4-12.4); Monocytes # (auto) 0.58 K/uL (0.11-0.59); Monocytes % (auto) 6.2 %; Neutrophils # (auto) 5.73 K/uL (1.40-6.50); Neutrophils % (auto) 61.8 %; Platelet Count 780 K/uL (130-400); RDW Coefficient of Variation 13.4 % (11.5-14.5); RDW Standard Deviation 45.4 fL (36.4-46.3); Red Blood Count 3.06 M/uL (4.20-5.40); White Blood Count 9.29 K/ul (4.8-10.8)
[2022-08-17 00:16] LABS: Alanine Aminotransferase 18 U/L (7-52); Albumin Level 3.4 gm/dl (3.4-5.0); Alkaline Phosphatase 70 U/L (34-104); Anion Gap 5 (3-11); Aspartate Aminotransferase 24 U/L (13-39); BUN Creatinine Ratio 24.1 (10-20); Bilirubin,Total 0.2 mg/dl (0.2-1.0); Blood Urea Nitrogen 13 mg/dl (6-23); Carbon Dioxide 30 mmol/L (21-32); Chloride 102 mmol/L (98-107); Creatinine Clr Calc Pharmacy 104.8 ml/min; Est GFR (African American) 141.7 ml/min; Est GFR (Non-African American) 122.3 ml/min; Glucose 74 mg/dl (70-99(Fasting)); Magnesium 1.9 mg/dl (1.7-2.4); Potassium 4.3 mmol/L (3.5-5.1); Sodium 137 mmol/L (136-145); Total Protein 7.5 gm/dl (6.0-8.3); Troponin I High Sensitivity < 2.3 pg/ml (0-14)
[2022-08-17] MEDS ORDERED: SODIUM CHLORIDE 0.9% 1000ML 1,000 ML IV STA (00:39)
--- NOTE | 2022-08-17 00:50 | History & Physical Report ---
Date of Service August 17, 2022 Assessment & Plan (1) MSSA bacteremia: Plan: hx tricuspid valve endocarditis/possible spinal infection Presumptive ongoing IVDU chronic pain on Suboxone treatment anxiety/mood disorder, anxiety worse in the hospital as per mother history of seizure-like activity as per records Anemia, hemoglobin of 9 baseline following confinement ongoing tobacco abuse. GMF Cefazolin Anxiolytic as needed, prefer Vistaril over benzos given patient addiction issues Nicotine patch Social service re: follow-up Dalvance authorization DVT prophylaxis. Lovenox subcu Full code Patient mother requesting updates from providers. Ms. oJel Vaughn, [phone]. Text document was generated using eEye voice recognition software. It may contain grammatical or spelling errors. Kindly contact undersigned for clarification of any documentation item in question. History of Present Illness Chief Complaint: Need antibiotics Primary Care Provider: Gus Blake DO History obtained from patient, family, and records. Medical history significant for MSSA endocarditis, possible spinal infection, chronic pain on Suboxone treatment, history IVDU, anxiety/mood disorder, PTSD, history of seizure-like activity as per records, ongoing tobacco abuse. 2 confinements in the last 2 weeks for MSSA bacteremia secondary to tricuspid valve endocarditis, possible spinal infection secondary to suspected IVDU. Possible epidural phlegmon on imaging. No surgical intervention as per Orthopedics spine service although tertiary care center evaluation recommended for spine care follow-up. Initial admission from 08/04 to 08/12/2022 followed by second admission from 08/12 to 08/13/2022 - both culminated in patient leaving AGAINST MEDICAL ADVICE. Outpatient IV Dalvance course recommended by [facility] pending insurance authorization. Patient well at home since leaving hospital. Back pain somewhat controlled as per mother. Outpatient follow-up at PCP's office yesterday. Patient advised to return to hospital for antibiotic medications until outpatient Dalvance therapy approved. Medical Historyas above Surgical History : section, cholecystectomy Family History : Breast cancer, ovarian cancer, DM Personal/Social history : 5 cigarettes a day, no EtOH intake, home nursing care Allergies Allergy/AdvReac Type Severity Reaction Status Date / Time No Known Allergies Allergy Unverified 08/04/22 01:17 Home Medications Medication Instructions Recorded Confirmed Type buprenorphine 8 mg-naloxone 2 mg 1 tab sublingual BID 08/04/22 08/16/22 History sublingual tablet Past Med/Surg History Medical History Drug abuse Infective endocarditis of tricuspid valve Mood disorder MSSA bacteremia Surgical History Hx of section Social History Smoking Status: Current every day smoker Tobacco Type: Cigarettes and E-cigarettes / Vaping Second Hand Exposure: No; Do You Dip or Chew Tobacco: No; Tobacco Cessation Education Requested by Patient: No Hx Alcohol Use: No Hx Substance Use: Yes Last Used Substance: Unknown Substance Use Type Other:: history of IV drug abuse. Patient states "I haven't used in awhile" Preferred Language: Greek Communication Ability: Effective Abrasive Grader Required: No Beliefs That Will Affect Care: None Current Living Situation: Alone Other Information That Helps Us Care for You: No Feels Safe at Home: Yes Safety Concerns: Feels Safe At This Time Assistive Devices: None Review of Systems Review of Systems: As per HPI, all other systems reviewed and negative Physical Exam Physical Exam: GENERAL: comfortable, no respiratory distress SKIN: Pallor, warm HEENT: Pale palpebral conjunctivae, no ptosis, moist buccal mucosa NECK : Supple, no tenderness CHEST : CTA, no tenderness HEART : RRR, no obvious murmurs ABDOMEN: Some distention, nontender BACK : Low back tenderness, limited straight leg raise bilateral EXTREMITIES : No LE swelling/tenderness, no other conspicuous deformities noted NEUROLOGIC : Coherent, no facial asymmetry, no other gross focality Results & Data Results & Data ([facility]) Vital Signs (Past 12 Hours) Vital Signs Temp Pulse Pulse Resp BP BP Pulse Ox 08/16/22 23:22 97 H 18 108/73 08/16/22 22:42 85 17 102/64 98 08/16/22 19:19 36.9 C 95 H 20 124/77 98 O2 Del Method 08/16/22 23:22 08/16/22 22:42 Room Air 08/16/22 19:19 Room Air Laboratory Results Laboratory Results WBC 9.29 K/ul (4.8-10.8) 08/16/22 23:06 RBC 3.06 M/uL (4.20-5.40) L 08/16/22 23: Hgb 9.1 g/dl (12.0-16.0) L 08/16/22 23: Hct 28.3 % (37.0-47.0) L 08/16/22 23: MCV 92.5 fL (80.0-100.0) 08/16/22 23: MCH 29.7 pg (25.0-34.0) 08/16/22 23: MCHC 32.2 g/dL (32.0-36.0) 08/16/22 23: RDW Std Deviation 45.4 fL (36.4-46.3) 08/16/22: RDW Coeff of Sanju 13.4 % (11.5-14.5) 08/16/22: Plt Count 780 K/uL (130-400) H 08/16/22 23: MPV 9.7 fL (9.4-12.4) 08/16/22: Immature Gran % (Auto) 0.6 % 08/16/22: Neut % (Auto) 61.8 % 08/16/22 23: Lymph % (Auto) 30.1 % 08/16/22 23: [place] % (Auto) 6.2 % 08/16/22 23: Eos % (Auto) 1.0 % 08/16/22 23: Baso % (Auto) 0.3 % 08/16/22 23: Neut # (Auto) 5.73 K/uL (1.40-6.50) 08/16/22: Lymph # (Auto) 2.80 K/uL (1.2-3.4) 08/16/22 23: [place] # (Auto) 0.58 K/uL (0.11-0.59) 08/16/22 23: Eos # (Auto) 0.09 K/uL (0-0.50) 08/16/22 23: Baso # (Auto) 0.03 K/uL (0-0.2) 08/16/22 23: Immature Gran # (Auto) 0.06 K/uL (0.01-0.20) 08/16/22 23: Sodium 137 mmol/L (136-145) 08/16/22 23:06 Potassium 4.3 mmol/L (3.5-5.1) 08/16/22 23:06 Chloride 102 mmol/L (98-107) 08/16/22 23:06 Carbon Dioxide 30 mmol/L (21-32) 08/16/22 23:06 Anion Gap 5 (3-11) 08/16/22 23:06 BUN 13 mg/dl (6-23) 08/16/22 23:06 Creatinine 0.54 mg/dl (0.6-1.2) L 08/16/22 23:06 Est Cr Clr Drug Dosing 104.8 ml/min 08/16/22 23:06 Est GFR ( Amer) 141.7 ml/min 08/16/22 23:06 Est GFR (Non-Af Amer) 122.3 ml/min 08/16/22 23:06 BUN/Creatinine Ratio 24.1 (10-20) H 08/16/22 23:06 Glucose 74 mg/dl (70-99(Fasting)) 08/16/22 23:06 Lactate 1.0 mmol/L (0.4-2.0) 08/16/22 23:52 Calcium 9.0 mg/dl (8.5-10.1) 08/16/22 23:06 Magnesium 1.9 mg/dl (1.7-2.4) 08/16/22 23:06 Total Bilirubin 0.2 mg/dl (0.2-1.0) 08/16/22 23:06 Direct Bilirubin TNP 08/16/22 23:06 AST 24 U/L (13-39) 08/16/22 23:06 ALT 18 U/L (7-52) 08/16/22 23:06 Alkaline Phosphatase 70 U/L (34-104) 08/16/22 23:06 Troponin I High Sens < 2.3 pg/ml (0-14) 08/16/22 23:06 Total Protein 7.5 gm/dl (6.0-8.3) 08/16/22 23:06 Albumin 3.4 gm/dl (3.4-5.0) 08/16/22 23:06 Procalcitonin 0.16 ng/ml (0-0.5) 08/16/22 23:06 SARS-CoV-2, RNA, NAAT NEGATIVE (NEGATIVE) 08/16/22 22:38 Diagnostic Findings Chest x-ray per my interpretation mild hyperinflation
[2022-08-17] MEDS ORDERED: ACETAMINOPHEN 325 MG TAB PO PRN ×2 (00:56→02:23)
[2022-08-17] MEDS ORDERED: NICOTINE 14 MG/24 HR PATCH TD STA (00:57)
[2022-08-17] MEDS: BUPRENORPHINE/NALOXONE 8/2 MG TAB SL SCH ×2 (08:10→20:20)
[2022-08-17] MEDS: ceFAZolin 2000MG 2,000 MG/15 ML SYR IV SCH ×2 (08:11→16:20)
[2022-08-17] MEDS: DOCUSATE SODIUM/SENNA 50/8.6MG TAB PO SCH (08:11)
[2022-08-17] MEDS: ENOXAPARIN INJ 40 MG/0.4 ML SYR SQ SCH (08:13)
[2022-08-17] MEDS: NICOTINE 14 MG/24 HR PATCH TD SCH (08:13)
--- NOTE | 2022-08-17 10:24 | XRay Report ---
XR chest 1V portable CLINICAL HISTORY: Sepsis. COMPARISON STUDY: Chest CT August 04, 2022. Chest radiograph August 09, 2022. FINDINGS: No pneumothorax is present. There may be trace pleural effusions. Bilateral pleural effusio ns and associated bibasilar opacities have improved since exam of August 09, 2022. The findings may reflect resolving pulmonary edema. Cardiac size is normal. Mediastinal contours are normal. IMPRESSION: 1. Pulmonary vascular congestion, improved since prior exam. 2. Interval improvement in bibasilar opacities with near complete resolution of bilateral pleural eff usions. ACT 112: Negative or not required by law. Electronically signed by: Cristobal Olvera M.D. 08/17/2022 10:23 AM
[2022-08-17 14:09] LABS: Amphetamines+Metham, Urine Neg (Neg); Barbiturates, Urine Neg (Neg); Benzodiazepine, Urine Neg (Neg); Cocaine, Urine Neg (Neg); MDMA (Ecstacy), Urine Neg (Neg); Methadone, Urine Neg (Neg); Opiate, Urine Neg (Neg); Phencyclidine, Urine Neg (Neg)
--- NOTE | 2022-08-17 18:10 | Hospitalist Progress Note ---
Date of Service August 17, 2022 Assessment & Plan (1) MSSA bacteremia: Plan: hx tricuspid valve endocarditis/possible spinal infection Presumptive ongoing IVDU chronic pain on Suboxone treatment Continue cefazolin IV every 8 hours manager data working on approval for patient's dalbavancin Once approved, patient will be discharged to receive 3 dalbavancin doses as an outpatient anxiety/mood disorder, anxiety worse in the hospital as per mother --As needed Ativan ordered history of seizure-like activity as per records Anemia, hemoglobin of 9 baseline following confinement ongoing tobacco abuse. Social service re: follow-up Dalvance authorization DVT prophylaxis. Lovenox subcu Full code Disposition Pending Case management on board plan of care discussed with patient in detail and at length all questions answered She is understanding, agreeable, comfortable with the plan of care Admission and Anticipated Discharge Date Admission Date: August 17, 2022 Subjective Follow-up for endocarditis, MSSA, lumbar spine infection etc. Seen with BELLE Eaton at the bedside throughout whole encounter Patient seen resting in bed, easily awakened, calm, cooperative States she feels okay overall Denies chest pain, shortness of breath, palpitations, dizziness No fevers or chills, nausea or vomiting Reports some anxiety No other new symptoms Denies using any illicit drugs since being admitted for the first time a week ago Review of Systems Review of Systems: all noted and negative except for above Physical Exam Physical Exam: General- oriented x 3, not in distress, speaks in sentences with no effort or accessory muscle use Eyes- anicteric Neck- no JVD Lungs- clear breath sounds bilaterally, no rales/wheezes Heart- normal rate, regular rhythm; no murmurs Abdomen- normal bowel sounds, nondistended, soft, nontender Extremities- no pretibial edema, no calf tenderness Neuro- alert, oriented x 3; no gross focal neurologic deficits Skin- warm & dry Results & Data Results & Data ([facility]) Vital Signs (Past 12 Hours) Vital Signs Temp Pulse Resp BP Pulse Ox O2 Del Method 08/17/22 16:11 37.2 C 69 16 103/64 97 Room Air 08/17/22 07:04 37.2 C 86 16 108/60 97 Room Air all noted and reviewed including below
[2022-08-17] MEDS: KETOROLAC TROMETHAMINE 15 MG/ML VIAL IV PRN (18:37)
[2022-08-17] MEDS: POLYETHYLENE (MIRALAX) 17 GM PACK PO PRN (20:28)
[2022-08-17] MEDS: LORazepam 2 MG/1 ML VIAL IV PRN (20:28)
--- NOTE | 2022-08-17 22:46 | Electrocardiogram Report ---
Test Reason : Blood Pressure : / mmHG Vent. Rate : 080 BPM Atrial Rate : 080 BPM P-R Int : 136 ms QRS Dur : 082 ms QT Int : 366 ms P-R-T Axes : 056 076 049 degrees QTc Int : 422 ms Normal sinus rhythm Normal ECG When compared with ECG of 12-AUG-2022 15:37, No significant change was found Confirmed by Wade Cantu ([id number]) on 08/17/2022 10:46:03 PM Referred By: Gus Blake Confirmed By:Wade Cantu
[2022-08-18] MEDS: ceFAZolin 2000MG 2,000 MG/15 ML SYR IV SCH ×3 (01:23→16:47)
[2022-08-18] MEDS: KETOROLAC TROMETHAMINE 15 MG/ML VIAL IV PRN ×2 (05:39→23:40)
[2022-08-18] MEDS: BUPRENORPHINE/NALOXONE 8/2 MG TAB SL SCH ×2 (08:55→21:16)
[2022-08-18] MEDS: DOCUSATE SODIUM/SENNA 50/8.6MG TAB PO SCH (08:55)
[2022-08-18] MEDS: NICOTINE 14 MG/24 HR PATCH TD SCH (08:56)
[2022-08-18] MEDS: ENOXAPARIN INJ 40 MG/0.4 ML SYR SQ SCH (08:56)
[2022-08-18 09:57] LABS: Albumin Level 3.4 gm/dl (3.4-5.0); Bilirubin,Total 0.2 mg/dl (0.2-1.0); Calcium 9.7 mg/dl (8.5-10.1); Potassium 4.2 mmol/L (3.5-5.1)
[2022-08-18 10:03] LABS: Albumin Globulin Ratio 0.9 (0.9-2); Creatinine Clr Calc Pharmacy 113.1 ml/min; Est GFR (African American) 145.3 ml/min; Est GFR (Non-African American) 125.4 ml/min; Globulin 3.9 gm/dl (2.5-4.0); Total Protein 7.3 gm/dl (6.0-8.3)
--- NOTE | 2022-08-18 16:11 | Hospitalist Progress Note ---
Date of Service August 18, 2022 Assessment & Plan (1) MSSA bacteremia: Plan: hx tricuspid valve endocarditis/possible spinal infection chronic pain on Suboxone treatment Stable, afebrile, asymptomatic Continue cefazolin IV every 8 hours fish and game club manager working on approval for patient's dalbavancin Once approved, patient will be discharged to receive 3 dalbavancin doses as an outpatient anxiety/mood disorder, anxiety worse in the hospital as per mother --As needed Ativan ordered history of seizure-like activity as per records Anemia, hemoglobin of 9 baseline following confinement ongoing tobacco abuse. Social service re: follow-up Dalvance authorization DVT prophylaxis. Lovenox subcu Full code Disposition Pending Case management on board plan of care discussed with patient in detail and at length all questions answered She is understanding, agreeable, comfortable with the plan of care Admission and Anticipated Discharge Date Admission Date: August 17, 2022 Subjective Follow-up for endocarditis, MSSA, lumbar spine infection, etc. Seen with BELLE Valdez at the bedside throughout whole encounter Patient's significant other also at the bedside Patient seen sitting up in bed, comfortable, not in distress in good spirits States she continues to feel fine overall Denies fevers or chills, headache, chest pain, shortness of breath, dizziness Ambulating in the hallways frequently with no problems States back pain is improving today No other symptoms Review of Systems Review of Systems: all noted and negative except for above Physical Exam Physical Exam: General- oriented x 3, not in distress, speaks in sentences with no effort or accessory muscle use Eyes- anicteric Neck- no JVD Lungs- clear BS bilaterally, no rales/wheezes Heart- normal rate, regular rhythm; no murmurs Abdomen- normal bowel sounds, nondistended, soft, nontender Extremities- no pretibial edema, no calf tenderness Neuro- alert, oriented x 3; no gross focal neurologic deficits Skin- warm & dry Results & Data Results & Data ([facility]) Vital Signs (Past 12 Hours) Vital Signs Temp Pulse Resp BP Pulse Ox O2 Del Method 08/18/22 15:39 36.6 C 86 18 106/67 99 Room Air 08/18/22 08:00 Room Air 08/18/22 07:14 36.7 C 75 18 101/62 95 Room Air
[2022-08-18] MEDS: POLYETHYLENE (MIRALAX) 17 GM PACK PO PRN (21:16)
[2022-08-18] MEDS: LORazepam 2 MG/1 ML VIAL IV PRN (21:16)
[2022-08-19] MEDS ORDERED: SOD PHOSPHATE/SOD BIPHOSPHATE ENEMA 132 ML BTL PR PRN (00:09)
[2022-08-19] MEDS ORDERED: LACTULOSE SYRUP 30 GM/45 ML UDP PO ONE (00:45)
[2022-08-19] MEDS: DOCUSATE SODIUM/SENNA 50/8.6MG TAB PO SCH ×3 (00:49→21:34)
[2022-08-19] MEDS: ceFAZolin 2000MG 2,000 MG/15 ML SYR IV SCH ×3 (00:49→16:52)
[2022-08-19] MEDS: NICOTINE 14 MG/24 HR PATCH TD SCH (09:36)
[2022-08-19] MEDS: ENOXAPARIN INJ 40 MG/0.4 ML SYR SQ SCH (09:37)
[2022-08-19] MEDS: BUPRENORPHINE/NALOXONE 8/2 MG TAB SL SCH ×2 (09:39→21:34)
--- NOTE | 2022-08-19 14:13 | Hospitalist Progress Note ---
Date of Service August 19, 2022 Assessment & Plan (1) MSSA bacteremia: Plan: History of tricuspid valve endocarditis/possible spinal infection Chronic pain on Suboxone treatment Stable, afebrile, asymptomatic Continue cefazolin IV every 8 hours discussed with [facility] Water Filter Cleaner to appeal denial of Dalbavancin- awaiting further recommendations today anxiety/mood disorder, anxiety worse in the hospital as per mother -- has been calm, cooperative, pleasant -- As needed Ativan ordered Constipation -- laxatives ordered history of seizure-like activity as per records Anemia, hemoglobin of 9 baseline following confinement ongoing tobacco abuse. DVT prophylaxis. Lovenox subcu Full code Disposition Pending Case management on board plan of care discussed with patient in detail and at length all questions answered She is understanding, agreeable, comfortable with the plan of care Admission and Anticipated Discharge Date Admission Date: August 17, 2022 Subjective ff up for MSSA bacteremia, endocarditis, etc seen with BELLE Cerrato the bedside throughout whole encounter seen resting in bed, comfortable states she feels fine overall no chest pain, dyspnea, palpitations, dizziness ambulating with no problems has mild left leg pain no weakness, numbness (+) constipation no other symptoms Review of Systems Review of Systems: all noted and negative except for above Physical Exam Physical Exam: General- oriented x 3, not in distress, speaks in sentences with no effort or accessory muscle use Eyes- anicteric Neck- no JVD Lungs- clear BS bilaterally, no rales/wheezes Heart- normal rate, regular rhythm; no murmurs Abdomen- normal bowel sounds, nondistended, soft, no tenderness Extremities- no pretibial edema, no calf tenderness Neuro- alert, oriented x 3; no gross focal neurologic deficits Skin- warm & dry Results & Data Results & Data ([facility]) Vital Signs (Past 12 Hours) Vital Signs Temp Pulse Resp BP BP Pulse Ox O2 Del Method 08/19/22 09:48 96/59 L 08/19/22 07:50 37.2 C 68 18 90/65 L 95 Room Air all noted and reviewed including below
[2022-08-19] MEDS: KETOROLAC TROMETHAMINE 15 MG/ML VIAL IV PRN (18:41)
[2022-08-19] MEDS ORDERED: NALOXONE HCL 0.4 MG/1 ML VIAL/CARP IV STA (21:14)
--- NOTE | 2022-08-19 21:53 | Communication Note ---
Date of Service: August 19, 2022 Patient noted to have decreased responsiveness by RN. Mentation improved after Narcan administration. Concern for patient access to illicit drugs as patient requesting to leave floor from time to time as per RN. Room search to be initiated by staff as per discussion. Patient became upset after finding out she was given Narcan. Patient signed out AGAINST MEDICAL ADVICE. Undersigned unable to talk to patient personally at time of incident due to ER admission. Patient unwilling to wait for provider to discuss issues. Patient mother updated of developments over the phone. Dr. Marinelli to accomplish discharge summary.
[2022-08-21 23:42] LABS: Marijuana Quant, GCMS Urine 75 ng/mL (<5)
== END 2022-08-19 21:50 | disposition left against medical advice (07) | DRG 290 ==
LOC: ED 18:48 → 3N 08-17 00:52

== ENCOUNTER 2022-08-28 06:28 | Inpatient (IN) ==
[2022-08-28] MEDS ORDERED: SODIUM CHLORIDE 0.9% 1000ML 1,000 ML IV ONE (06:43)
[2022-08-28] MEDS ORDERED: cefTRIAXone SODIUM 2,000 MG/70 ML BAG IV STA (06:43)
[2022-08-28] MEDS ORDERED: ACETAMINOPHEN 325 MG TAB PO STA (07:01)
--- NOTE | 2022-08-28 07:08 | Emergency Department Note ---
Impression & Plan Infective endocarditis of tricuspid valve, Drug abuse, Leukocytosis ED Provider Note NAME: CINDY BOCANEGRA AGE: 37 SEX: F : 1985 ARRIVES VIA: Walk-In INFORMANT: Patient ED PROVIDER(S): Babatunde Winter DO CHIEF COMPLAINT: possible endocarditis HPI: Patient is a 37-year-old female with a past medical history of IV drug use, MSSA bacteremia secondary to infective endocarditis of the tricuspid valve that presents to the ER after signing out twice in the past month AMA. She notes that she was given Narcan during her last admission and she was very upset with this on the last visit. She notes that today she is here to stay and needs to go to rehab as well and received a full course of IV antibiotics. Fevers have been present for the past 3 days. She notes she last used at the end of July. Denies any headache or change in vision. No chest pain or shortness of breath. She admits to swelling in her belly and legs. Chronic leg pain. No dysuria urgency or frequency. No other exacerbating or remitting factors. PAST MEDICAL HISTORY:See Below PAST SURGICAL HISTORY:See Below FAMILY HISTORY:See Below SOCIAL HISTORY:See Below HOME MEDICATIONS:See Below ALLERGIES:See Below VITALS:See Below PHYSICAL EXAMINATION: GENERAL: Sitting up in bed, alert, chronically ill-appearing, disheveled EYE EXAM: normal conjunctiva. OROPHARYNX:mucous membranes are moist LUNGS: Clear to auscultation. Normal chest wall mechanics HEART: no murmurs, S1 normal and S2 normal ABDOMEN: abdomen soft, non-tender, normo-active bowel sounds, no masses, no rebound or guarding. UPPER EXTREMITIES: upper extremities are grossly normal. LOWER EXTREMITIES: Pitting edema in the lower extremities NEURO EXAM: Normal sensorium, cranial nerves II-XII grossly intact, normal speech, no gross weakness of arms. MEDICAL DECISION MAKING: Patient is a 37-year-old female with a past medical history of IV drug use and currently endocarditis who was signed out AMA twice this month during admissions. External records were reviewed. She is febrile and tachycardic. IV was established blood work was obtained. Labs show no significant leukocytosis. Mild anemia 8.7 fairly consistent with previous. INR unremarkable. BMP with a mild hyponatremia 131. LFTs bilirubin was unremarka ble. Troponin was negative. Pro-Augustus was normal. Influenza COVID and RSV was negative. She has not had any antibiotics since she left AMA last visit per patient's report. Denies any chest pain or shortness of breath. Admits to chronic back pain and weakness in the legs which has been unchanged per Pt. She has been walking with a walker. Previous MRI of the lumbar spine was reviewed from back in July which showed a phlegmon and ECHO with tricuspid vegetation. Discussed with hospitalist for further evaluation and admission. CT abdomen pelvis was obtained but there is significant delay in obtaining and reads. That showed some discitis and recommended MR. MR was obtained but again a significant delay in reading. Patient was taken upstairs. Did consult spine but did not hear back from them until after the patient had already gone upstairs. They will review the images. Triage Nursing notes reviewed. Limited review of prior medical records performed Vital Signs: reviewed and remarkable for febrile and tachycardic Differential diagnosis: Differential diagnosis includes etiologies such as sepsis, UTI, pneumonia, metabolic, electrolyte abnormalities, cardiac sources, intracerebral event, toxicologic, neurological, as well as others were entertained. ER treatment provided: See below Diagnostics interpreted by me include EKG and cardiac monitoring as listed below: -Cardiac Monitoring: An order was placed for continuous cardiac monitoring. The monitor shows a rate of 80 with sinus rhythm. -ECG: Sinus rhythm rate 95 Normal axis Poor baseline QTc 424 -Laboratory studies:Interpreted by me as stated above in MDM and shown below. Imaging studies: Xrays: As interpreted by me: Portable AP upright 1 view of the chest per my read shows no focal infiltrate CTs show: CT abdomen pelvis shows no obstruction per my read. CT per radiology showed endplate erosions at L5. Consultation(s): Discussed with the [facility] hospitalist for further evaluation management and treatment of her likely endocarditis Procedures:none Critical Care: None Past Med/Surg History Medical History Drug abuse Infective endocarditis of tricuspid valve Mood disorder MSSA bacteremia Surgical History Hx of section Social History Smoking Status: Current every day smoker Tobacco Type: Cigarettes Second Hand Exposure: No; Hx Alcohol Use: No Hx Substance Use: Yes Last Used Substance: Unknown Substance Use Type Other:: history of IV drug abuse. Patient states "I haven't used in awhile" Preferred Language: Greenlandic Communication Ability: Effective Mattress Filler Required: No Beliefs That Will Affect Care: None Current Living Situation: Alone Feels Safe at Home: Yes Assistive Devices: None Allergies Allergies Allergy/AdvReac Type Severity Reaction Status Date / Time No Known Allergies Allergy Unverified 08/04/22 01:17 Home Meds Home Medications Medication Instructions Recorded Confirmed buprenorphine 8 mg-naloxone 2 mg 1 tab sublingual BID 08/04/22 08/28/22 sublingual tablet gabapentin 300 mg capsule 600 mg PO DAILY 08/28/22 08/28/22 Results & Data (ED) Vital Signs Vital Signs - 24 hr 08/28/22 06:33 08/28/22 06:51 08/28/22 07:30 Temperature 38.1 C H Temperature Source Temporal Artery Scan Pulse Rate 106 H 83 Pulse Rate from SpO2 Sensor 84 Respiratory Rate 20 18 Respiratory Effort / Characteristics Non-Labored Respiratory Depth Normal Blood Pressure 104/68 101/60 Blood Pressure Mean 80 73 Pulse Oximetry 97 96 Oxygen Delivery Method Room Air Room Air Sepsis Recent Fever Within 48 Hours Yes Sepsis New/Unexplained Change in Mental Status N/A Sepsis Action Taken by Nursing Physician Notified 08/28/22 07:36 08/28/22 07:45 08/28/22 07:50 Temperature Temperature Source Pulse Rate 78 82 75 Pulse Rate from SpO2 Sensor 78 83 Respiratory Rate 19 21 17 Respiratory Effort / Characteristics Respiratory Depth Blood Pressure 95/59 L 100/65 Blood Pressure Mean 71 76 Pulse Oximetry 96 96 Oxygen Delivery Method Sepsis Recent Fever Within 48 Hours Sepsis New/Unexplained Change in Mental Status Sepsis Action Taken by Nursing Laboratory Data 08/28/22 07:25 08/28/22 07:25 Lab Results 08/28/22 08/28/22 08/28/22 Range/Units 07:25 07:25 07:25 WBC 10.72 (4.8-10.8) K/ul RBC 2.93 L (4.20-5.40) M/uL Hgb 8.7 L (12.0-16.0) g/dl Hct 26.2 L (37.0-47.0) % MCV 89.4 (80.0-100.0) fL MCH 29.7 (25.0-34.0) pg MCHC 33.2 (32.0-36.0) g/dL RDW Std Deviation 40.6 (36.4-46.3) fL RDW Coeff of Sanju 12.4 (11.5-14.5) % Plt Count 369 (130-400) K/uL MPV 10.3 (9.4-12.4) fL Immature Gran % (Auto) 0.4 % Neut % (Auto) 72.5 % Lymph % (Auto) 17.1 % [place] % (Auto) 9.4 % Eos % (Auto) 0.4 % Baso % (Auto) 0.2 % Neut # (Auto) 7.78 H (1.40-6.50) K/uL Lymph # (Auto) 1.83 (1.2-3.4) K/uL [place] # (Auto) 1.01 H (0.11-0.59) K/uL Eos # (Auto) 0.04 (0-0.50) K/uL Baso # (Auto) 0.02 (0-0.2) K/uL Immature Gran # (Auto) 0.04 (0.01-0.20) K/uL PT 12.2 H (9.0-12.0) Seconds INR 1.2 H (0.9-1.1) Sodium 131 L (136-145) mmol/L Potassium 3.5 (3.5-5.1) mmol/L Chloride 100 (98-107) mmol/L Carbon Dioxide 26 (21-32) mmol/L Anion Gap 5 (3-11) BUN 6 (6-23) mg/dl Creatinine 0.58 L (0.6-1.2) mg/dl Est Cr Clr Drug Dosing 99.8 ml/min Est GFR ( Amer) 138.4 ml/min Est GFR (Non-Af Amer) 119.4 ml/min BUN/Creatinine Ratio 10.3 (10-20) Glucose 150 H (70-99(Fasting)) mg/dl Lactate (0.4-2.0) mmol/L Calcium 9.0 (8.5-10.1) mg/dl Magnesium 1.8 (1.7-2.4) mg/dl Total Bilirubin 0.3 (0.2-1.0) mg/dl Direct Bilirubin 0.1 (0-0.2) mg/dl AST 9 L (13-39) U/L ALT 6 L (7-52) U/L Alkaline Phosphatase 65 (34-104) U/L Troponin I High Sens 2.7 (0-14) pg/ml Total Protein 7.3 (6.0-8.3) gm/dl Albumin 3.4 (3.4-5.0) gm/dl Procalcitonin (0-0.5) ng/ml SARS-CoV-2 (PCR) (Negative) Influenza Type A (PCR) (Neg) Influenza Type B (PCR) (Neg) RSV (RT-PCR) (Neg) 08/28/22 08/28/22 08/28/22 Range/Units 07:25 07:25 07:41 WBC (4.8-10.8) K/ul RBC (4.20-5.40) M/uL Hgb (12.0-16.0) g/dl Hct (37.0-47.0) % MCV (80.0-100.0) fL MCH (25.0-34.0) pg MCHC (32.0-36.0) g/dL RDW Std Deviation (36.4-46.3) fL RDW Coeff of Sanju (11.5-14.5) % Plt Count (130-400) K/uL MPV (9.4-12.4) fL Immature Gran % (Auto) % Neut % (Auto) % Lymph % (Auto) % [place] % (Auto) % Eos % (Auto) % Baso % (Auto) % Neut # (Auto) (1.40-6.50) K/uL Lymph # (Auto) (1.2-3.4) K/uL [place] # (Auto) (0.11-0.59) K/uL Eos # (Auto) (0-0.50) K/uL Baso # (Auto) (0-0.2) K/uL Immature Gran # (Auto) (0.01-0.20) K/uL PT (9.0-12.0) Seconds INR (0.9-1.1) Sodium (136-145) mmol/L Potassium (3.5-5.1) mmol/L Chloride (98-107) mmol/L Carbon Dioxide (21-32) mmol/L Anion Gap (3-11) BUN (6-23) mg/dl Creatinine (0.6-1.2) mg/dl Est Cr Clr Drug Dosing ml/min Est GFR ( Amer) ml/min Est GFR (Non-Af Amer) ml/min BUN/Creatinine Ratio (10-20) Glucose (70-99(Fasting)) mg/dl Lactate 1.1 (0.4-2.0) mmol/L Calcium (8.5-10.1) mg/dl Magnesium (1.7-2.4) mg/dl Total Bilirubin (0.2-1.0) mg/dl Direct Bilirubin (0-0.2) mg/dl AST (13-39) U/L ALT (7-52) U/L Alkaline Phosphatase (34-104) U/L Troponin I High Sens (0-14) pg/ml Total Protein (6.0-8.3) gm/dl Albumin (3.4-5.0) gm/dl Procalcitonin 0.11 (0-0.5) ng/ml SARS-CoV-2 (PCR) NEGATIVE (Negative) Influenza Type A (PCR) Negative (Neg) Influenza Type B (PCR) Negative (Neg) RSV (RT-PCR) Negative (Neg) Administered Medications Discontinued Medications Acetaminophen (Acetaminophen 325 Mg Tab) 650 mg PO NOW STA Stop: 08/28/22 07:02 Last Admin: 08/28/22 07:39 Dose: 650 mg Documented By: SHELLI Gadobutrol (Gadobutrol 65ml Vial) 6 ml IV ONCE ONE Stop: 08/28/22 10:47 Last Admin: 08/28/22 10:49 Dose: 6 ml Documented By: KAREN Sodium Chloride (Nss 1000ml) 1,000 mls @ 999 mls/hr IV .Q1H1M ONE Stop: 08/28/22 07:43 Last Infusion: 08/28/22 08:58 Dose: 0 mls/hr Documented By: Admin: 08/28/22 07:55 Dose: 999 mls/hr Documented By: SHELLI Ceftriaxone Sodium (Rocephin) 2,000 mg in 70 mls @ 140 mls/hr IV NOW STA Stop: 08/28/22 07:12 Last Infusion: 08/28/22 08:41 Dose: 0 mls/hr Documented By: Admin: 08/28/22 07:56 Dose: 140 mls/hr Documented By: SHELLI Vancomycin HCl 1,250 mg/ (Sodium Chloride) 525 mls @ 200 mls/hr IV NOW ONE Stop: 08/28/22 10:23 Last Admin: 08/28/22 08:30 Dose: 200 mls/hr Documented By: SHELLI Ioversol (Optiray 350 100ml) 90 ml IV ONCE ONE Stop: 08/28/22 09:39 Last Admin: 08/28/22 09:36 Dose: 90 ml Documented By: HI Imaging Data Radiologist's Impression: Chest X-Ray 08/28/22 06:43 XR chest 1V portable CLINICAL HISTORY: Sepsis. COMPARISON STUDY: Chest CT August 04, 2022. Chest radiograph August 16, 2022. FINDINGS: Lung volumes are normal. No consolidation is identified. Subtle lower lung interstitial thickening has improved. There is no pneumothorax or pleural effusion. Cardiac size is normal. Mediastinal contours are normal. There is no evidence for pulmonary edema. IMPRESSION: 1. No consolidation identified. 2. Interval improvement in lower lung interstitial thickening. ACT 112: Negative or not required by law. Electronically signed by: Cristobal Olvera M.D. 08/28/2022 7:27 AM Abdomen/Pelvis CT 08/28/22 07:[address] WITH IV CONTRAST CT DOSE: 311.01 mGycm HISTORY: Diffuse abdominal pain. Low back pain. TECHNIQUE: Multiaxial CT images of the abdomen and pelvis were performed following the use of intravenous contrast. A dose lowering technique was utilized adhering to the principles of ALARA. COMPARISON STUDY: Abdomen and pelvis CT 08/08/2022 and 08/04/2022. FINDINGS: Interval development of endplate erosive change and disc space rafael rowing at L5-S1 with surrounding paravertebral and epidural soft tissue enhancement which extends into the sacral canal. This is consistent with a discitis/osteomyelitis with surrounding phlegmon. An epidural abscess would be difficult to exclude by CT and will be better appreciated on the same day lumbar spine MRI. There is a nondisplaced pathologic fracture at the superior endplate of S1. Bibasilar linear densities favor subsegmental atelectasis. No pneumoperitoneum. No pneumatosis. There is an indeterminate 1 cm hypodense lesion within the left hepatic lobe demonstrate capsular retraction on image 120. This remains unchanged. No new hepatic lesions identified. Prior cholecystectomy. The pancreas, spleen, and adrenal glands are unremarkable. No hydronephrosis. The main portal vein is patent. Normal caliber abdominal aorta. No retroperitoneal or pelvic lymphadenopathy. The bladder is distended. The uterus is unremarkable. Normal left ovary. There is a 2.5 cm right adnexal cyst which has slightly decreased in size. No significant pelvic free fluid. Moderate fecal retention. No bowel wall thickening or obstruction. IMPRESSION: 1. Interval development of endplate erosive change and disc space narrowing at L5-S1 with surrounding paravertebral and epidural soft tissue enhancement which extends into the sacral canal. This is consistent with a discitis/osteomyelitis with surrounding phlegmon. An epidural abscess would be difficult to exclude by CT and will be better appreciated on the same day lumbar spine MRI. 2. There is a nondisplaced pathologic fracture at the superior endplate of S1. 3. There is again noted a 1 cm hypodense lesion within the left hepatic lobe with associated capsular retraction. This is indeterminate but remain stable. Follow-up abdominal MRI in 6 months is recommended to assess for stability. 4. Additional findings as described above. ACT 112: Negative or not required by law. Electronically signed by: Jose Gautam M.D. 08/28/2022 10:23 AM Discharge Plan Visit Data Chief Complaint: Infection Stated Complaint: INFECTION IN VALVE AND STOMACH ED Provider: Babatunde Winter Discharge Problem: Infective endocarditis of tricuspid valve, Drug abuse, Leukocytosis Patient Disposition: Admitted As Inpatient Discharge Instructions Interventions: ED Discharge Assessment Last Done: 08/28/22 12:01
--- NOTE | 2022-08-28 07:28 | XRay Report ---
XR chest 1V portable CLINICAL HISTORY: Sepsis. COMPARISON STUDY: Chest CT August 04, 2022. Chest radiograph August 16, 2022. FINDINGS: Lung volumes are normal. No consolidation is identified. Subtle lower lung interstitial thi ckening has improved. There is no pneumothorax or pleural effusion. Cardiac size is normal. Mediastin al contours are normal. There is no evidence for pulmonary edema. IMPRESSION: 1. No consolidation identified. 2. Interval improvement in lower lung interstitial thickening. ACT 112: Negative or not required by law. Electronically signed by: Cristobal Olvera M.D. 08/28/2022 7:27 AM
--- NOTE | 2022-08-28 07:34 | History & Physical Report ---
Date of Service August 28, 2022 History of Present Illness Primary Care Provider: Gus Blake DO Allergies Allergy/AdvReac Type Severity Reaction Status Date / Time No Known Allergies Allergy Unverified 08/04/22 01:17 Home Medications Medication Instructions Recorded Confirmed Type buprenorphine 8 mg-naloxone 2 mg 1 tab sublingual BID 08/04/22 08/16/22 History sublingual tablet Past Med/Surg History Medical History Drug abuse Infective endocarditis of tricuspid valve Mood disorder MSSA bacteremia Surgical History Hx of section Social History Smoking Status: Current every day smoker Tobacco Type: Cigarettes Second Hand Exposure: No; Hx Alcohol Use: No Hx Substance Use: Yes Last Used Substance: Unknown Substance Use Type Other:: history of IV drug abuse. Patient states "I haven't used in awhile" Preferred Language: Amharic Communication Ability: Effective Registered Dental Assistant Required: No Beliefs That Will Affect Care: None Current Living Situation: Alone Feels Safe at Home: Yes Assistive Devices: None Results & Data Results & Data ([facility]) Vital Signs (Past 12 Hours) Vital Signs Temp Pulse Resp BP Pulse Ox O2 Del Method 08/28/22 06:51 Room Air 08/28/22 06:33 38.1 C H 106 H 20 104/68 97 Room Air
[2022-08-28] MEDS ORDERED: VANCOMYCIN HCL 1,250 MG in SODIUM CHLORIDE 0.9% 500 ML IV ONE (07:46)
[2022-08-28] MEDS ORDERED: VANCOMYCIN CONSULT ACTIVE PRN ×2 (07:46→12:25)
[2022-08-28 07:49] LABS: Basophils # (auto) 0.02 K/uL (0-0.2); Basophils % (auto) 0.2 %; Eosinophils # (auto) 0.04 K/uL (0-0.50); Eosinophils % (auto) 0.4 %; Hematocrit (blood only) 26.2 % (37.0-47.0); Hemoglobin 8.7 g/dl (12.0-16.0); Immature Granulocytes # (auto) 0.04 K/uL (0.01-0.20); Immature Granulocytes % (auto) 0.4 %; Lymphocytes # (auto) 1.83 K/uL (1.2-3.4); Lymphocytes % (auto) 17.1 %; Mean Corpuscular Hemoglobin 29.7 pg (25.0-34.0); Mean Corpuscular Hgb Conc 33.2 g/dL (32.0-36.0); Mean Corpuscular Volume 89.4 fL (80.0-100.0); Mean Platelet Volume 10.3 fL (9.4-12.4); Monocytes # (auto) 1.01 K/uL (0.11-0.59); Monocytes % (auto) 9.4 %; Neutrophils # (auto) 7.78 K/uL (1.40-6.50); Neutrophils % (auto) 72.5 %; Platelet Count 369 K/uL (130-400); RDW Coefficient of Variation 12.4 % (11.5-14.5); RDW Standard Deviation 40.6 fL (36.4-46.3); Red Blood Count 2.93 M/uL (4.20-5.40); White Blood Count 10.72 K/ul (4.8-10.8)
[2022-08-28 08:00] LABS: Albumin Level 3.4 gm/dl (3.4-5.0); BUN Creatinine Ratio 10.3 (10-20); Bilirubin Direct 0.1 mg/dl (0-0.2); Bilirubin,Total 0.3 mg/dl (0.2-1.0); Creatinine Clr Calc Pharmacy 99.8 ml/min; Est GFR (African American) 138.4 ml/min; Est GFR (Non-African American) 119.4 ml/min; Magnesium 1.8 mg/dl (1.7-2.4); Potassium 3.5 mmol/L (3.5-5.1); Total Protein 7.3 gm/dl (6.0-8.3)
[2022-08-28 08:06] LABS: Troponin I High Sensitivity 2.7 pg/ml (0-14)
[2022-08-28 08:08] LABS: INR 1.2 (0.9-1.1); Prothrombin Time 12.2 Seconds (9.0-12.0)
[2022-08-28 08:41] LABS: Influenza A virus by PCR Negative (Neg); Influenza B virus by PCR Negative (Neg); RSV by PCR Negative (Neg); SARS CoV2 RNA(COVID-19) Ceph NEGATIVE (Negative)
--- NOTE | 2022-08-28 08:51 | History & Physical Report ---
Date of Service August 28, 2022 Assessment & Plan (1) Infective endocarditis of tricuspid valve: (2) Drug abuse: (3) Back pain: Plan 37 y/o female that presents with fevers, abdominal and back pain with radiculopathy and perineal neuropathy and loss of bladder control. History of IV drug abuse and tricuspid valve vegetation. Last admission signed out AMA and did not continue IV antibiotics. DC on 08/20. No spine surgery data security consultant at [place] this week and based on her bacteremia, radiculopathy and associated neuro deficits, will work on transfer of patient to [facility] for upgrade in care and resources. Infective endocarditis of tricuspid valve: Drug Abuse: -Pt with recent admission 08/12-08/20 and diagnosed with infective carditis of the tricuspid valve; signed out AMA. -On Vancomycin, but unable to continue at home through Home Health agency due to IV drug use. -MSSA bacteremia:Blood cultures 08/04: MSSA -patient states she smokes meth -last IV meth use 07/26 -UDS pending -Consult Infectious Disease; for now Vanco and Cefazolin -Consult Cardiology -monitor for withdrawal symptoms -Repeat Transthoracic echocardiogram for monitor of any growth of small vegetation of Tricuspid valve; pending -Blood cultures pending. Last admission cultures negative x4 -Anticipate PICC line/ultrasound-guided line placement this admission -event operations manager has to be involved for inpatient rehabilitation discharge Back Pain: Perineal neuropathy: Loss of bladder function intermittently Denies hematuria, burning with urination -takes Gabapentin 600 mg PO daily; continue UA pending MRI performed on 08/05; will repeat today Lumbar MRI was performed on 08/05 1. Abnormal epidural enhancement within the lower lumbar and sacral canals. Mild lumbosacral prevertebral edema and enhancement. This is nonspecific but given the clinical history is suspicious for an infectious process with possible epidural phlegmon. No rim-enhancing fluid collection to suggest abscess. If persistent back pain, short-term follow-up lumbar spine MRI with and without contrast is recommended. 2. No evidence for discitis or osteomyelitis. 3. Central disc protrusion at L5-S1 which results in mild narrowing of the central canal and moderate narrowing of both lateral recesses. 4. 4 cm T1 hyperintense right adnexal lesion. This favors a hemorrhagic ovarian cyst or endometrioma. -Creatinine 0.58 -Lactate Acid 1.1 -Procalcitonin negative -Mg+ 1.8 History of chronic pain on Suboxone treatment -takes Suboxone 1 tab SL daily; continue LBM: 08/25 -anxiety/mood disorder/PTSD -history of seizure-like activity as per records, patient seen by [facility] outpatient in 2018 -ongoing tobacco abuse; recently 1PPD -Nicotine patch ordered Disposition: PCP: Dr. Blake Code Status: Full code VTE Prophylaxis: Lovenox SQ A total of 88 minutes was spent with greater than 50% of that time personally reviewing all current laboratory work and diagnostic imaging studies obtained in the ED. Additionally, I was able to review the patients past medication reconciliation and history with direct visualization in the patients chart. Included in the time above, a portion of that time was spent assessing the patient while discussing and collaborating with specialists, if necessary, and making medical decisions regarding orders to be placed. All of the afor ementioned completed while collaborating with Dr. Loza for a full treatment plan. Please see his addendum for further details. History of Present Illness Chief Complaint: pain Primary Care Provider: Gus Blake DO Ms. Worthy is a 37 year old female who presented to the ED today with 'heaviness' in her back that radiates to her abdomen, left and right leg which she describes as 'spasming'. Additionally, she reports having neuropathy in her perineal area. She describes her abdominal pain as 'cramping'. She has not moved her bowels for the past few days. She describes heaviness in her chest with shallow breathing. She does report a cough that started and a fever of 103 three days ago at home for which she took Tylenol with relief. She states that she was walking when she got up to pee and she lost control of her bladder function. Yesterday, she went to her PCP to do a drug screen and she could not produce a sample, but she changed her position and then was able to make urine. She denies hematuria, burning with urination. Previous admission the patient did sign out AMA. It was a complex medical situation as she was unable to return home with a PICC line due to her history of IV drug abuse and resistance of treatment through Home Health Agency. She is not qualified for inpatient rehabilitation but is able to go to an inpatient drug and alcohol rehab, but last admission was refusing to go. Today, she has stated that she is willing to go to inpatient rehab and recognizes that she needs to in order for her condition to improve. No leukocytosis and labs WBC 10.72, some anemia noted with hemoglobin 8.7. Baseline hemoglobin 9.1 from previous admission. No signs of active bleeding and we will trend H/H. Lumbar MRI was performed on 08/05 1. Abnormal epidural enhancement within the lower lumbar and sacral canals. Mild lumbosacral prevertebral edema and enhancement. This is nonspecific but given the clinical history is suspicious for an infectious process with possible epidural phlegmon. No rim-enhancing fluid collection to suggest abscess. If persistent back pain, short-term follow-up lumbar spine MRI with and without contrast is recommended. 2. No evidence for discitis or osteomyelitis. 3. Central disc protrusion at L5-S1 which results in mild narrowing of the central canal and moderate narrowing of both lateral recesses. 4. 4 cm T1 hyperintense right adnexal lesion. This favors a hemorrhagic ovarian cyst or endometrioma. A KUB was performed on 08/08: 1. Moderate colonic fecal retention with nonobstructive bowel gas pattern. She denies N/V. She says that she has a good appetite When she stands up, she loses control of her bladder. She has recently been admitted for IV drug use, MSSA bacteremia secondary to infective carditis of the tricuspid valve. Patient has radiculopathy with some neuro deficits occurring. Patient reports her last use of Meth was 07/26/22. Heroin use 2012. Last time smoke marijuana was this morning. Pt reports smoking 1 ppd over the past week. PMH includes: IV drug use, MSSA bacteremia secondary to infective carditis of the tricuspid valve. She has stated that she 'will be good this time' and wants to proceed to rehabilitation and continue her IV antibiotics. No spine surgery data security consultant at [place] this week and based on her bacteremia, radiculopathy and associated neuro deficits, will work on transfer of patient to [facility] for upgrade in care and resources. Patient will be admitted for further evaluation and management. Please see A/P for further details. Allergies Allergy/AdvReac Type Severity Reaction Status Date / Time No Known Allergies Allergy Unverified 08/04/22 01:17 Home Medications Medication Instructions Recorded Confirmed Type buprenorphine 8 mg-naloxone 2 mg 1 tab sublingual BID 08/04/22 08/28/22 History sublingual tablet gabapentin 300 mg capsule 600 mg PO DAILY 08/28/22 08/28/22 History Past Med/Surg History Medical History Drug abuse Infective endocarditis of tricuspid valve Mood disorder MSSA bacteremia Surgical History Hx of section Social History Smoking Status: Current every day smoker Tobacco Type: Cigarettes Second Hand Exposure: No; Do You Dip or Chew Tobacco: No; Tobacco Cessation Education Requested by Patient: No Hx Alcohol Use: No Hx Substance Use: Yes Last Used Substance: Unknown Substance Use Type Other:: history of IV drug abuse. Patient states "I haven't used in awhile" Preferred Language: Yoruba Communication Ability: Effective Insurance Executive Required: No Beliefs That Will Affect Care: None Current Living Situation: Alone Other Information That Helps Us Care for You: No Feels Safe at Home: Yes Safety Concerns: Feels Safe At This Time Assistive Devices: None Review of Systems Review of Systems: Neuro: (-) Falls, trauma, slurred speech HEENT: (-) BRENNER, dizziness, dysphagia, visual or auditory changes CV: (-) CP, palpitations, swelling Resp: (-) SOB GI: (-) appetite changes, N/V/D, bowel changes : (+) urinary changes (+) loss of bladder control Skin: (-) rashes Psych: (-) anxiety, depression Physical Exam Physical Exam: Please see Dr. Loza's addendum for physical examination details Results & Data Results & Data ([facility]) Vital Signs (Past 12 Hours) Vital Signs Temp Pulse Resp BP Pulse Ox O2 Del Method 08/28/22 08:34 73 15 105/73 97 08/28/22 08:15 76 20 103/65 96 08/28/22 08:00 78 18 107/67 97 08/28/22 07:50 75 17 08/28/22 07:45 82 21 100/65 96 08/28/22 07:36 78 19 95/59 L 96 08/28/22 08:05 90 08/28/22 07:30 83 18 101/60 96 08/28/22 06:51 Room Air 08/28/22 06:33 38.1 C H 106 H 20 104/68 97 Room Air Laboratory Results Short CBC 08/28/22 Range/Units 07:25 WBC 10.72 (4.8-10.8) K/ul Hgb 8.7 L (12.0-16.0) g/dl Hct 26.2 L (37.0-47.0) % Plt Count 369 (130-400) K/uL BMP 08/28/22 07:25 Sodium 131 L Potassium 3.5 Chloride 100 Carbon Dioxide 26 BUN 6 Creatinine 0.58 L Glucose 150 H Calcium 9.0 Liver Function 08/28/22 Range/Units 07:25 Total Bilirubin 0.3 (0.2-1.0) mg/dl Direct Bilirubin 0.1 (0-0.2) mg/dl AST 9 L (13-39) U/L ALT 6 L (7-52) U/L Alkaline Phosphatase 65 (34-104) U/L Albumin 3.4 (3.4-5.0) gm/dl Diagnostic Findings Chest X-Ray 08/28/22 06:43 XR chest 1V portable CLINICAL HISTORY: Sepsis. COMPARISON STUDY: Chest CT August 04, 2022. Chest radiograph August 16, 2022. FINDINGS: Lung volumes are normal. No consolidation is identified. Subtle lower lung interstitial thickening has improved. There is no pneumothorax or pleural effusion. Cardiac size is normal. Mediastinal contours are normal. There is no evidence for pulmonary edema. IMPRESSION: 1. No consolidation identified. 2. Interval improvement in lower lung interstitial thickening. ACT 112: Negative or not required by law. Electronically signed by: Cristobal Olvera M.D. 08/28/2022 7:27 AM Code Status & VTE Plan Code Status Full code in the event of cardiac or respiratory arrest VTE Prophylaxis Plan VTE Prophylaxis will be ordered: Yes Supervising Physician Co-Signing Physician Notes History and physical exam performed by me. History notable for 37-year-old woman IV drug user on Suboxone therapy with recent hospitalization for MSSA bacteremia, tricuspid valve endocarditis who had left [facility]INST MEDICAL [facility] a couple of times in the past who presents with fevers, abdominal and back pain that have worsened since leaving the hospital about a week ago. Reports worsening weakness of the left leg, reports losing control of her bladder a few times yesterday Denied dysuria, freq, hematuria Reports perineal numbness. On exam General: No acute distress, ill appearing Eyes: PERRL, conjunctivae normal, not pale, anicteric sclerae, EOM intact bilaterally ENMT: External ear and nose normal, oropharynx normal Respiratory: Normal respiratory effort, no respiratory distress, lungs clear to auscultation, no crackles and no wheezes Cardiovascular: RRR S1 S2 Gastrointestinal (Abdomen): Abdomen is not distended, soft, non-tender to palpation, no guarding, no palpable hepatosplenomegaly, normal bowel sounds Musculoskeletal: Low back tenderness Neurologic: Alert and oriented x 3, Power is reduced in left lower extremity 4/5 compared to right Psychiatric: Euthymic affect Labs notable for hemoglobin of 8.7, sodium of [address] noted interval development of endplate erosive change and disc space narrowing at the of 5 to S1 with surrounding paravertebral and epidural soft tissue enhancement extending to the sacral canal consistent with discitis/osteomyelitis with surrounding phlegmon MSSA bacteremia Infective endocarditis Vertebra discitis/osteomyelitis with phlegmon Considering neurological findings, CT findings, I spoke with Petty Monroe with ortho spine today. She stated Dr Apple will not be around for next few days and recommended transfer to tertiary center. I called [facility] transfer center and discussed with spine surgeon and triage Dr. Patient accepted for transfer under Dr Chandana Tsai In the meantime, continue vancomycin and cefazolin Follow up blood cultures Can get ID consult, TTE to reeval tricuspid valve vegetation seen on CASIE from 08/07/22 over at [facility] Counseled patient about need to stay for optimal treatment. She stated that she will stay this time Continue home suboxone Avoid opioids patient and mother who were at bedside Other plans as detailed by Sun FERRER
[2022-08-28] MEDS ORDERED: NICOTINE 14 MG/24 HR PATCH TD SCH (09:00)
[2022-08-28] MEDS ORDERED: OPTIRAY 350 100ml IV ONE (09:38)
--- NOTE | 2022-08-28 10:21 | Electrocardiogram Report ---
Test Reason : Blood Pressure : / mmHG Vent. Rate : 095 BPM Atrial Rate : 095 BPM P-R Int : 142 ms QRS Dur : 084 ms QT Int : 338 ms P-R-T Axes : 054 072 044 degrees QTc Int : 424 ms Normal sinus rhythm Normal ECG When compared with ECG of 16-AUG-2022 23:45, No significant change was found Confirmed by Nikita Phelps ([id number]) on 08/28/2022 10:20:45 AM Referred By: REFERRED SELF Confirmed By:Khalif Phelps
--- NOTE | 2022-08-28 10:25 | CT Scan Report ---
ABDOMEN AND PELVIS CT WITH IV CONTRAST CT DOSE: 311.01 mGycm HISTORY: Diffuse abdominal pain. Low back pain. TECHNIQUE: Multiaxial CT images of the abdomen and pelvis were performed following the use of intrave nous contrast. A dose lowering technique was utilized adhering to the principles of ALARA. COMPARISON STUDY: Abdomen and pelvis CT 08/08/2022 and 08/04/2022. FINDINGS: Interval development of endplate erosive change and disc space narrowing at L5-S1 with surr ounding paravertebral and epidural soft tissue enhancement which extends into the sacral canal. This is consistent with a discitis/osteomyelitis with surrounding phlegmon. An epidural abscess would be d ifficult to exclude by CT and will be better appreciated on the same day lumbar spine MRI. There is a nondisplaced pathologic fracture at the superior endplate of S1. Bibasilar linear densities favor moyer bsegmental atelectasis. No pneumoperitoneum. No pneumatosis. There is an indeterminate 1 cm hypodense lesion within the left hepatic lobe demonstrate capsular retraction on image 120. This remains uncha nged. No new hepatic lesions identified. Prior cholecystectomy. The pancreas, spleen, and adrenal gla nds are unremarkable. No hydronephrosis. The main portal vein is patent. Normal caliber abdominal aor ta. No retroperitoneal or pelvic lymphadenopathy. The bladder is distended. The uterus is unremarkabl e. Normal left ovary. There is a 2.5 cm right adnexal cyst which has slightly decreased in size. No s ignificant pelvic free fluid. Moderate fecal retention. No bowel wall thickening or obstruction. IMPRESSION: 1. Interval development of endplate erosive change and disc space narrowing at L5-S1 with surrounding paravertebral and epidural soft tissue enhancement which extends into the sacral canal. This is cons istent with a discitis/osteomyelitis with surrounding phlegmon. An epidural abscess would be difficul t to exclude by CT and will be better appreciated on the same day lumbar spine MRI. 2. There is a nondisplaced pathologic fracture at the superior endplate of S1. 3. There is again noted a 1 cm hypodense lesion within the left hepatic lobe with associated capsular retraction. This is indeterminate but remain stable. Follow-up abdominal MRI in 6 months is recommen ded to assess for stability. 4. Additional findings as described above. ACT 112: Negative or not required by law. Electronically signed by: Jose Gautam M.D. 08/28/2022 10:23 AM
[2022-08-28] MEDS ORDERED: GADOBUTROL 65ML VIAL IV ONE (10:46)
[2022-08-28 11:38] LABS: Appearance Urine Clear (Clear); Bilirubin Urine Negative (Negative); Blood Urine Negative (Negative); Color Urine Yellow; Glucose Urine UA Negative (Negative); Ketones Urine Negative (Negative); Leukocyte Esterase Urine Negative (Negative); Nitrite Urine Negative (Negative); Protein Urine Negative (Negative); Urobilinogen Urine Negative (Negative); pH Urine 6.5 (4.5-7.5)
[2022-08-28] MEDS ORDERED: ceFAZolin 2000MG 2,000 MG/15 ML SYR IV SCH (12:25)
[2022-08-28] MEDS ORDERED: VANCOMYCIN HCL 1,000 MG in SODIUM CHLORIDE 0.9% 250 ML IV SCH (12:25)
[2022-08-28] MEDS ORDERED: ACETAMINOPHEN 325 MG TAB PO PRN (12:25)
[2022-08-28] MEDS ORDERED: ONDANSETRON INJ 2 MG/ML 2 ML VIAL IV PRN (12:25)
[2022-08-28] MEDS ORDERED: POLYETHYLENE (MIRALAX) 17 GM PACK PO PRN (12:25)
[2022-08-28] MEDS ORDERED: LORazepam 0.5 MG TAB PO PRN (12:25)
[2022-08-28] MEDS ORDERED: ALUMINUM/MAGNESIUM SUSP 30 ML UDC PO PRN (12:25)
[2022-08-28] MEDS ORDERED: ENOXAPARIN INJ 40 MG/0.4 ML SYR SQ SCH (13:00)
[2022-08-28] MEDS: KETOROLAC 30 MG/ML VIAL IV PRN ×2 (13:18→20:22)
[2022-08-28] MEDS: NSS + 20MEQ KCL 20 MEQ/1,000 ML BAG IV SCH ×2 (13:19→21:09)
[2022-08-28] MEDS: ceFAZolin 2000MG 2,000 MG/15 ML SYR IV SCH ×2 (13:21→20:10)
--- NOTE | 2022-08-28 13:56 | Magnetic Resonance Report ---
MRI OF THE LUMBAR SPINE WITH AND WITHOUT CONTRAST CLINICAL HISTORY: Loss of bladder control. Lower extremity weakness. COMPARISON STUDY: Lumbar spine MRI August 04, 2022. TECHNIQUE: Utilizing a 1.5 Kasandra magnet and dedicated coil, multiplanar, multiecho imaging of the ángel ar spine was performed before and after uneventful IV administration of 6 mL of Gadavist. FINDINGS: For purposes of numbering on this exam, the L5-S1 disc space is assigned to axial image 29 of 31 Alig nment of the lumbar spine is anatomic. Mild loss of height of the superior endplate of S1 is noted. T he conus terminates at the L1-L2 level. There has been significant progression of infectious process centered at the L5-S1 level since MRI of August 04, 2022. Disc signal is increased consistent with d iscitis. Interval development of marrow edema within the L5 and S1 vertebral bodies is noted consiste nt with associated osteomyelitis. A disc herniation at this level is again noted. Extensive preverteb ral edema and enhancement has progressed. This represents phlegmon. No rim-enhancing fluid collection is identified to suggest an abscess. There is edema and enhancement within the adjacent musculature suggestive of infectious myositis. Of note, there is extensive anterior epidural phlegmon centered at the L5-S1 level which results in marked narrowing of the lower lumbar and upper sacral canal. Patent AP diameter of the canal is 2.3 mm. No rim-enhancing fluid collection within the epidural space is n oted to suggest abscess. The epidural phlegmon has significantly progressed since MRI of August 04, 2022. Phlegmon also results in narrowing of the bilateral L5-S1 neural foramen. No additional sites o f central canal stenosis are noted within the lumbar spine. IMPRESSION: Findings consistent with significant progression of the infectious process centered at th e L5-S1 level since MRI of August 04, 2022. L5-S1 discitis and osteomyelitis with mild pathologic fr acture of the superior endplate of S1. Significant progression of extensive anterior epidural phlegmo n which results in severe central canal narrowing and narrowing of the bilateral L5-S1 neural foramen . No rim-enhancing fluid collection to suggest abscess at this time. However, Spine surgical consulta tion is recommended given mass effect of the phlegmon on the thecal sac. Extensive associated paraver tebral phlegmon without paravertebral abscess. ACT 112: Negative or not required by law. Electronically signed by: Cristobal Olvera M.D. 08/28/2022 1:55 PM
[2022-08-28] MEDS ORDERED: VANCOMYCIN HCL 1,250 MG in SODIUM CHLORIDE 0.9% 250 ML IV SCH (14:30)
--- NOTE | 2022-08-28 14:45 | Pharmacy Report ---
Pharmacy PK ABX Note - Date of Service August 28, 2022 - Assessment and Plan Assessment 37 year old F receiving Ancef and Vancomycin for empiric therapy due to fever, complaint of back pain and stomach cramps. Patient was on admission until 08/20 for treatment of infective endocarditis of tricuspid valve but left AMA without continued treatment outpatient (needed a 6 weeks treatment for MSSA bacteremia - MSSA found in blood cuture from 08/05). Current blood culture still pending. Day # 1 of antimicrobial therapy. Plan Vancomycin * Loading dose: 1250 mg IV x 1 * Maintenance dose: 1250 mg IV every 12 hours * Regimen is predicted to achieve target AUC/RUSSELL of 400-600 mg/L.hr Pharmacy will continue to follow and will adjust dose/frequency as necessary. Thank you. Pharmacy has transitioned to AUC monitoring for vancomycin. AUC/RUSSELL is the pre ferred PK/PD target and is associated with decreased risk of nephrotoxicity compared to traditional trough targets.
--- NOTE | 2022-08-28 14:59 | XRay Report ---
KUB CLINICAL HISTORY: abdominal pain COMPARISON STUDY: KUB August 08, 2022. CT of the abdomen and pelvis performed earlier today. FINDINGS: Cholecystectomy clips. There is no evidence for a bowel obstruction. Gas throughout small a nd large bowel is noted. Contrast within the bladder from recent contrast-enhanced CT is noted. A mod erate amount of stool within the colon is present. IMPRESSION: 1. No evidence for a bowel obstruction. 2. Moderate amount of stool within the colon. ACT 112: Negative or not required by law. Electronically signed by: Cristobal Olvera M.D. 08/28/2022 2:58 PM
--- NOTE | 2022-08-28 15:02 | Discharge Summary ---
Date of Service August 28, 2022 Admission HPI Per Admitting Provider 37 y/o IV drug user on Suboxone therapy with recent hospitalization for M MSSA bacteremia, tricuspid valve endocarditis who left AMA on 08/20. Presents with fevers, abdominal and back pain that have worsened since leaving the hospital. Worsening weakness of left leg, loss of bowel and bladder control and perineal numbness. Worsening Lumbar MRI with stenosis and narrowing from phlegmon on. On examination, decreased Rectal tone (1/5). She presented to the ED today with 'heaviness' in her back that radiates to her abdomen, left and right leg which she describes as 'spasming'. Additionally, she reports having neuropathy in her perineal area. She describes her abdominal pain as 'cramping'. She has not moved her bowels for the past few days. She describes heaviness in her chest with shallow breathing. She does report a cough that started and a fever of 103 three days ago at home for which she took Tylenol with relief. She states that she was walking when she got up to pee and she lost control of her bladder function. Yesterday, she went to her PCP to do a drug screen and she could not produce a sample, but she changed her position and then was able to make urine. She denies hematuria, burning with urination. Previous admission the patient did sign out AMA. It was a complex medical situation as she was unable to return home with a PICC line due to her history of IV drug abuse and resistance of treatment through [facility]. She is not qualified for inpatient rehabilitation but is able to go to an inpatient drug and alcohol rehab, but last admission was refusing to go. Today, she has stated that she is willing to go to inpatient rehab and recognizes that she needs to in order for her condition to improve. No leukocytosis and labs WBC 10.72, some anemia noted with hemoglobin 8.7. Baseline hemoglobin 9.1 from previous admission. No signs of active bleeding and we will trend H/H. Lumbar MRI 08/28/22: Findings consistent with significant progression of the infectious process centered at the L5-S1 level since MRI of August 04, 2022. L5-S1 discitis and osteomyelitis with mild pathologic fracture of the superior endplate of S1. Significant progression of extensive anterior epidural phlegmon which results in severe central canal narrowing and narrowing of the bilateral L5-S1 neural foramen. No rim-enhancing fluid collection to suggest abscess at this time. However, Spine surgical consultation is recommended given mass effect of the phlegmon on the thecal sac. Extensive associated paravertebral phlegmon without paravertebral abscess. Lumbar MRI was performed on 08/05 1. Abnormal epidural enhancement within the lower lumbar and sacral canals. Mild lumbosacral prevertebral edema and enhancement. This is nonspecific but given the clinical history is suspicious for an infectious process with possible epidural phlegmon. No rim-enhancing fluid collection to suggest abscess. If persistent back pain, short-term follow-up lumbar spine MRI with and without contrast is recommended. 2. No evidence for discitis or osteomyelitis. 3. Central disc protrusion at L5-S1 which results in mild narrowing of the central canal and moderate narrowing of both lateral recesses. 4. 4 cm T1 hyperintense right adnexal lesion. This favors a hemorrhagic ovarian cyst or endometrioma. KUB 08/28: 1. Moderate colonic fecal retention with nonobstructive bowel gas pattern. Repeat KUB unchanged today. She denies N/V. She says that she has a good appetite When she stands up, she loses control of her bladder. She has recently been admitted for IV drug use, MSSA bacteremia secondary to infective carditis of the tricuspid valve. Patient has radiculopathy with some neuro deficits occurring. Patient reports her last use of Meth was 07/26/22. Heroin use 2012. Last time smoke marijuana was this morning. Pt reports smoking 1 ppd over the past week. PMH includes: IV drug use, MSSA bacteremia secondary to infective carditis of the tricuspid valve. She has stated that she 'will be good this time' and wants to proceed to rehabilitation and continue her IV antibiotics. 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 [facility] [place] completed and stable for transfer. Should the patient not be transfered until tomorrow, Hospitalist assigned to confirm stability for transfer. See below for further details. Admission Exam Per Admitting Provider On exam General: No acute distress, ill appearing Eyes: PERRL, conjunctivae normal, not pale, anicteric sclerae, EOM intact bilaterally ENMT: External ear and nose normal, oropharynx normal Respiratory: Normal respiratory effort, no respiratory distress, lungs clear to auscultation, no crackles and no wheezes Cardiovascular: RRR S1 S2 Gastrointestinal (Abdomen): Abdomen is not distended, soft, non-tender to palpation, no guarding, no palpable hepatosplenomegaly, normal bowel sounds Musculoskeletal: Low back tenderness Neurologic: Alert and oriented x 3, Power is reduced in left lower extremity 4/5 compared to right. Rectal tone by LITTLE 07/11. Psychiatric: Euthymic affect Principal Diagnosis Infective endocarditis; radiculopathy with neurologic deficits Discharge Exam General: No acute distress, ill appearing Eyes: PERRL, conjunctivae normal, not pale, anicteric sclerae, EOM intact bilaterally ENMT: External ear and nose normal, oropharynx normal Respiratory: Normal respiratory effort, no respiratory distress, lungs clear to auscultation, no crackles and no wheezes Cardiovascular: RRR S1 S2 Gastrointestinal (Abdomen):Abdomen is not distended, soft, non-tender to palpation, no guarding, no palpable hepatosplenomegaly, normal bowel sounds Musculoskeletal: Low back tenderness Neurologic: Alert and oriented x 3, Power is reduced in left lower extremity 4/5 compared to right. Rectal tone by LITTLE 07/11. Psychiatric: Euthymic affect Discharge Data Allergies Allergy/AdvReac Type Severity Reaction Status Date / Time No Known Allergies Allergy Unverified 08/04/22 01:17 Consultations 08/28/22 07:29 ED Decision to Admit Stat 08/28/22 09:58 Consult Infectious Diseases Routine 08/28/22 12:28 Consult Cardiology Routine Ordered Studies 08/28/22 07:10 CT Abd and Pelvis [CT abd pelvis IV con only] Stat 08/28/22 08:52 MRI Lumbar Spine [MR lumbar spine wo/w con] Routine Hospital Course (1) Endocarditis: (2) Back pain: (3) Infective endocarditis of tricuspid valve: (4) Drug abuse: Plan 37 y/o female that presents with fevers, abdominal and back pain with radiculopathy and perineal neuropathy and loss of bladder control. History of IV drug abuse and tricuspid valve vegetation. Last admission signed out AMA and did not continue IV antibiotics. DC on 08/20. 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 Discitis: Osteomyelitis: Back Pain: Perineal neuropathy: Loss of bladder function intermittently Denies hematuria, burning with urination -takes Gabapentin 600 mg PO daily; continue UA pending Lumbar MRI 08/28/22: Findings consistent with significant progression of the infectious process centered at the L5-S1 level since MRI of August 04, 2022. L5-S1 discitis and osteomyelitis with mild pathologic fracture of the superior endplate of S1. Significant progression of extensive anterior epidural phlegmon which results in severe central canal narrowing and narrowing of the bilateral L5-S1 neural foramen. No rim-enhancing fluid collection to suggest abscess at this time. Spine surgical consultation is recommended given mass effect of the phlegmon on the thecal sac. Extensive associated paravertebral phlegmon without paravertebral abscess. MRI performed on 08/05 Lumbar MRI was performed on 08/05 1. Abnormal epidural enhancement within the lower lumbar and sacral canals. Mild lumbosacral prevertebral edema and enhancement. This is nonspecific but given the clinical history is suspicious for an infectious process with possible epidural phlegmon. No rim-enhancing fluid collection to suggest abscess. If persistent back pain, short-term follow-up lumbar spine MRI with and without contrast is recommended. 2. No evidence for discitis or osteomyelitis. 3. Central disc protrusion at L5-S1 which results in mild narrowing of the central canal and moderate narrowing of both lateral recesses. 4. 4 cm T1 hyperintense right adnexal lesion. This favors a hemorrhagic ovarian cyst or endometrioma. -Creatinine 0.58 -Lactate Acid 1.1 -Procalcitonin negative -Mg+ 1.8 Infective endocarditis of tricuspid valve: Drug Abuse: -Pt with recent admission 08/12-08/20 and diagnosed with infective carditis of the tricuspid valve; signed out AMA. -On Vancomycin, but unable to continue at home through Home Health agency due to IV drug use. -MSSA bacteremia:Blood cultures 08/04: MSSA -patient states she smokes meth -last IV meth use 07/26 -UDS pending -Consult Infectious Disease; for now Vanco and Cefazolin -Consult Cardiology -monitor for withdrawal symptoms -Repeat Transthoracic echocardiogram for monitor of any growth of small vegetation of Tricuspid valve; pending -Blood cultures pending. Last admission cultures negative x4 -Anticipate PICC line/ultrasound-guided line placement this admission -engineering design manager has to be involved for inpatient rehabilitation discharge History of chronic pain on Suboxone treatment -takes Suboxone 1 tab SL daily; continue LBM: 08/25 -anxiety/mood disorder/PTSD -history of seizure-like activity as per records, patient seen by [facility] Neurology outpatient in 2018 -ongoing tobacco abuse; recently 1PPD -Nicotine patch ordered Disposition: PCP: Dr. Blake Code Status: Full code VTE Prophylaxis: Lovenox SQ Total Time Total Time Spent Total Time Spent (In Minutes): A total of 88 minutes was spent with greater than 50% of that time personally reviewing all current laboratory work and diagnostic imaging studies obtained in the ED. Additionally, I was able to review the patients past medication reconciliation and history with direct visualization in the patients chart. Included in the time above, a portion of that time was spent assessing the patient while discussing and collaborating with specialists, if necessary, and making medical decisions regarding orders to be placed. All of the aforementioned completed while collaborating with Dr. Loza for a full treatment plan. Please see his addendum for further details. Discharge Plan Discharge Items Patient Disposition: Transfer Acute Care Hospital Reason For Visit: sepsis Discharge Diagnosis: Radiculopathy with Neurologic deficit; infective carditis Condition on Discharge: Serious Health Concerns: 37 y/o IV drug user on Suboxone therapy with recent hospitalization for M MSSA bacteremia, tricuspid valve endocarditis who left [facility] on 08/20. Presents with fevers, abdominal and back pain that have worsened since leaving the hospital. Worsening weakness of left leg, loss of bowel and bladder control and perineal numbness. Worsening Lumbar MRI with stenosis and narrowing from phlegmon on. On examination, decreased Rectal tone (1/5). Activity: As commented below Activity Comment: patient to remain on bedrest until orthospine evaluation Lifting: None Bathing: No limitations Exercise/Sports: None Non-emergency contact: Primary Care Provider and Hospitalist Call non-emergency contact if: your symptoms worsen Follow-up/Referrals: Gus Blkae DO [Primary Care Provider] - Diet: Nothing by Mouth Addtl Attending Provider Instructions: Advise provider of worsening symptoms including but not limited to SOB, chest pain, palpitations, N/V/D, worsening loss of bowel or bladder function Pending Studies at Discharge: No Stand-Alone Forms: [facility] Skilled Items Patient informed of condition?: Yes DNR: No Discharge Level of Care: Other Communicable Disease: No Discharge Prognosis: Deteriorating Lines: Peripheral IV Urinary Catheter: No Medications and DC Order Prescriptions: Continued buprenorphine-naloxone 8-2 mg tablet, sublingual 1 tab SUBLINGUAL BID gabapentin 300 mg Capsule 600 mg PO DAILY Discharge Orders: Discharge Order (Routine); Ordered 08/28/22 Ordered By: Sun Verma Admission Data Admit Date/Time: 08/28/22 07:51 Attending Provider: Ramesh Bustillo Admit Provider: Ramesh Bustillo Primary Care Provider: Gus Blake Other Providers: John Yates ; Prem Bernstein ; Alexa Bajwa ; Addi Mcknight I. ; Aleks Tidwell II ; Светлана Pulliam ; Jacob Jang ; Todd Smith ; Nila Friedman Other Interventions: Discharge Summary Assessment (RN) Last Done: 08/29/22 00:10 Supervising Physician Co-Signing Physician Notes MSSA bacteremia Infective endocarditis Vertebra discitis/osteomyelitis with phlegmon Considering neurological findings, CT findings, I spoke with Petty Monroe with ortho spine today. She stated Dr Apple will not be around for next few days and recommended transfer to tertiary center. I called [facility] transfer center and discussed with spine surgeon and triage Dr. Patient accepted for transfer under Dr Chandana Tsai In the meantime, continue vancomycin and cefazolin Follow up blood cultures Can get ID consult, TTE to reeval tricuspid valve vegetation seen on CASIE from 08/07/22 over at [facility] Counseled patient about need to stay for optimal treatment. She stated that she will stay this time Continue home suboxone Avoid opioids patient and mother who were at bedside Other plans as detailed by Sun FERRER
[2022-08-28] MEDS ORDERED: BUPRENORPHINE/NALOXONE 8/2 MG TAB SL SCH (21:00)
[2022-08-29 02:57] LABS: A calco-baum cmplx NotReported Not Detected (NotDetected); Bact fragilis Not Reported Not Detected (NotDetected); C auris Not Reported Not Detected (NotDetected); Calbicans Not Reported Not Detected (NotDetected); Candida glabrata Not Reported Not Detected (NotDetected); Candida krusei Not Reported Not Detected (NotDetected); Cneoformans/gatti Not Reported Not Detected (NotDetected); Cparapsilosis Not Reported Not Detected (NotDetected); Ctropicalis Not Reported Not Detected (NotDetected); E cloacae compx Not Reported Not Detected (NotDetected); Efaecalis Not Reported Not Detected (NotDetected); Efaecium Not Reported Not Detected (NotDetected); Enterobacterales Not Reported Not Detected (NotDetected); Escherichia coli Not Reported Not Detected (NotDetected); H influenzae Not Reported Not Detected (NotDetected); K aerogenes Not Reported Not Detected (NotDetected); Koxytoca Not Reported Not Detected (NotDetected); Kpneumoniae grp Not Reported Not Detected (NotDetected); Lmonocyt Not Reported Not Detected (NotDetected); N meningitidis Not Reported Not Detected (NotDetected); P aeruginosa Not Reported Not Detected (NotDetected); Proteus spp Not Reported Not Detected (NotDetected); Salmonella spp Not Reported Not Detected (NotDetected); Smarcescens Not Reported Not Detected (NotDetected); Staph lugdunensis Not Reported Not Detected (NotDetected); Staph spp. Not Reported DETECTED (NotDetected); Staphaureus Not Reported DETECTED (NotDetected); Staphepi Not Reported Not Detected (NotDetected); Stenmaltophilia Not Reported Not Detected (NotDetected); Strep agal(GrpB) Not Reported Not Detected (NotDetected); Strep pneum Not Reported Not Detected (NotDetected); Strep pyog (GrpA) Not Reported Not Detected (NotDetected); Strep spp Not Reported Not Detected (NotDetected); mecAC+MREJ Resistant Gene MRSA Not Detected (NotDetected)
[2022-08-29 04:39] LABS: Staphylococcus spp. DETECTED (NotDetected)
[2022-08-29] MEDS ORDERED: ENOXAPARIN INJ 30 MG/0.3 ML SYR SQ SCH (09:00)
[2022-08-29] MEDS ORDERED: GABAPENTIN 300 MG CAP PO SCH (09:00)
== END 2022-08-29 00:14 | disposition short-term general hospital (02) | DRG 290 ==
LOC: ED 06:28 → 2S 07:51

== ENCOUNTER 2022-09-02 13:03 | Inpatient (IN) ==
[2022-09-02] MEDS ORDERED: POLYETHYLENE (MIRALAX) 17 GM PACK PO PRN (13:29)
[2022-09-02] MEDS ORDERED: MAGNESIUM HYDROXIDE SUSP 30 ML UDC PO PRN (13:29)
[2022-09-02] MEDS ORDERED: ONDANSETRON INJ 2 MG/ML 2 ML VIAL IV PRN (13:29)
[2022-09-02] MEDS ORDERED: ACETAMINOPHEN 325 MG TAB PO PRN (13:29)
[2022-09-02] MEDS ORDERED: ALUMINUM/MAGNESIUM SUSP 30 ML UDC PO PRN (13:29)
--- NOTE | 2022-09-02 13:41 | Communication Note ---
Date of Service: September 02, 2022 This is a 37-year-old female with significant past medical history of IVDU, chronic pain on Suboxone, PTSD, seizure disorder, anxiety and mood disorder who is being transferred back from [facility] after being admitted at [facility] on 08/28/2022. Of significance patient has known MSSA bacteremia and requires IV antibiotics for 6 weeks. Patient has left our facility AMA previously prior to appropriate disposition. Her use of IV drugs complicates her disposition as she is unable to receive a PICC line. Patient presented to [facility] on 08/28/2022 with fever, incontinence of urine, difficulty ambulating, numbness and tingling to left lower extremity, right lower extremity weakness. Due to no neurosurgery availability she was sent to [facility]. MRI on 08/28/2022 showed significant progression of L5-S1 infectious process, L5-S1 discitis and osteomyelitis, mild pathological fracture of the superior endplate of S1, significant progression of extension anterior epidural phlegmon, significant central canal narrowing, narrowing of the bilateral L5-S1 neuroforamina. No ring-enhancing fluid collection to suggest abscess. Echocardiogram from 08/26/2022 revealed echodensity on the right atrial aspect of tricuspid valve initially restarted on broad-spectrum IV antibiotics. She was seen and evaluated by infectious disease at [facility] who recommended IV cefazolin 2 g every 2 hours. Patient is being treated for MSSA bacteremia, endocarditis, discitis and osteomyelitis. She was seen and evaluated by neurosurgery who did not feel she has cauda equina syndrome but rather worsening over lumbar sacral osteomyelitis due to treatment noncompliance/refusal. She will require IV antibiotics through 09/23/2022. Per infectious disease it is recommended to repeat MRI of spine with and without contrast in 2 to 3 weeks as well as follow-up with Dr. Elder ELAINE in 3-4 weeks. She is to have weekly cbc w diff/CMP as well as twice weekly crp. Patient is being transferred back to our facility on 09/02/2022 to continue IV antibiotics as well as determine appropriate disposition. I discussed case with Dr. Jain [facility] medicine with [facility]. Lucien Marin PA-C
--- NOTE | 2022-09-02 20:35 | Communication Note ---
Date of Service: September 02, 2022 Notified by RN of patient intent to sign out AGAINST MEDICAL ADVICE. Patient arrived at the floor around 6 PM as a direct admit [place] [facility] Patient demanding to be allowed to go outside the hospital to smoke. Patient informed of [facility] non-smoking policy as per RN account. Undersigned unable to talk to patient personally at time of incident due to ER admission. Patient unwilling to wait for provider to discuss issues. Patient signed AMA paper. Patient mother updated of developments over the phone. She requested for patient to be allowed to go out to smoke "like they allowed her at [facility]". I told mother I could not authorize such request given [facility] non-smoking policy.
[2022-09-02] MEDS ORDERED: ceFAZolin 2000MG 2,000 MG/15 ML SYR IV SCH (22:00)
== END 2022-09-02 20:10 | disposition left against medical advice (07) | DRG 872 ==
LOC: 3W 18:09